=== PATIENT | female | born 1960 | race Caucasian/White ===

== ENCOUNTER 2017-10-16 16:21 | Emergency (ER) | payer OTHER ==
[~2017-10-16] VITALS: Ht 197 cm; Wt 83.9 kg
[~2017-10-16 16:21] MED LIST: LORSARTAN; farxiga
[2017-10-16] MEDS ORDERED: CEFTRIAXONE SOD 1 GM VIAL IV ONE (17:30)
[2017-10-16] MEDS ORDERED: ONDANSETRON HCL INJ 2 MG/ML VIAL IV ONE (17:30)
[2017-10-16] MEDS ORDERED: KETOROLAC TROMETHAMINE 30 MG/ML VIAL IV ONE (17:30)
[2017-10-16] MEDS ORDERED: ATIVAN1 MG (19:07)
[2017-10-16] MEDS ORDERED: KETOROLAC TROME10 MG PO (20:24)
[2017-10-16] MEDS ORDERED: ZOFRAN ODT4 MG SL (20:24)
[2017-10-16] MEDS ORDERED: KEFLEX500 MG PO (20:24)
== END 2017-10-16 20:33 | disposition home or self-care (01) ==
LOC: FSED 16:21
DX: R10.84 Generalized abdominal pain (principal); R11.0 Nausea; N10 Acute pyelonephritis
CPT/HCPCS: 80053; 80307; 81003; 85025; 99284; J0696; J1885; J2405

== ENCOUNTER 2017-12-29 14:41 | Emergency (ER) | payer OTHER ==
[~2017-12-29] VITALS: Ht 175.3 cm; Wt 89.4 kg
[~2017-12-29 14:41] MED LIST changes: +ATIVAN1 MG; +KEFLEX500 MG PO; +KETOROLAC TROME10 MG PO; +ZOFRAN ODT4 MG SL
[2017-12-29 15:17] VITALS: BP 132/70
== END 2017-12-29 15:25 | disposition home or self-care (01) ==
LOC: FSED 14:41
DX: R30.0 Dysuria (principal); N30.90 Cystitis, unspecified without hematuria; N10 Acute pyelonephritis; N12 Tubulo-interstitial nephritis, not specified as acute or chronic
CPT/HCPCS: 80307; 81003; 87086; 87186; 99283

== ENCOUNTER 2019-01-02 13:22 | Emergency (ER) | payer OTHER ==
[~2019-01-02] VITALS: Ht 175.3 cm; Wt 83.9 kg
--- OUTSIDE RECORDS SUMMARY | 2019-01-02 13:26 | XMS REPORT | Clinical Summary ---
Author Author [facility] Address Unknown Phone Unavailable Care Team Providers Care Assembler Small Products Name Role Phone Sharpless PCP Allergies Comments Active Allergy Reactions Severity Noted Date Pt states 'I don't know, it makes my violently sick" Azithromycin Other (See 02/26/2015 Comments) Sulfa (Sulfonamide Rash Low 02/26/2015 Antibiotics) Medications End Date Status Medication Sig Dispensed Refills Start Date Active folic acid (FOLVITE) 1 MG Take 1 mg by 0 tablet mouth daily. Active LORazepam (ATIVAN) 0.5 MG Take 0.5 mg 0 tablet by mouth every 6 (six) hours as needed for Anxiety. Active dapagliflozin (FARXIGA) Take 10 mg by 0 10 mg Tab mouth daily. Active amitriptyline (ELAVIL) 25 Take 25 mg by 0 MG tablet mouth nightly. Active Problems Not on file Social History Date Tobacco Use Types Packs/Day Years Used Current Some Day Smoker Smokeless Tobacco: Never Used Alcohol Use Drinks/Week oz/Week Comments Yes Sex Assigned at Date Recorded Not on file Industry Job Start Date Occupation Not on file Not on file Not on file Travel End Travel History Travel Start No recent travel history available. Last Filed Vital Signs Not on file Plan of Treatment Not on file Results Not on fileafter 01/01/2018 Insurance Payer Benefit Subscriber ID Type Phone Address Plan / Group [employer] - [employer] C[employer] xxxxxxxxxxx LOCAL PLUS
--- OUTSIDE RECORDS SUMMARY | 2019-01-02 13:26 | XMS REPORT | Clinical Summary ---
Author Author [facility] Address Unknown Phone Unavailable Care Team Providers Care Territory Sales Manager Medical Name Role Phone Brandon Guzmán MD PCP Allergies Comments Active Allergy Reactions Severity Noted Date Azithromycin 12/16/2018 Codeine 12/16/2018 Sulfa (Sulfonamide 12/16/2018 Antibiotics) Medications End Date Status Medication Sig Dispensed Refills Start Date 12/23/2018 amoxicillin-pot Take 1 tablet 14 tablet 0 clavulanate (AUGMENTIN) by mouth 9 875-125 mg per tablet every 12 (twelve) hours for 7 days. 12/21/2018 ibuprofen (ADVIL,MOTRIN) Take 1 tablet 15 tablet 0 600 MG tablet (600 mg 9 total) by mouth every 8 (eight) hours as needed for mild pain for up to 5 days. 12/21/2018 butalbital-acetaminophen- Take 1 tablet 15 tablet 0 caff (ESGIC) 50-325-40 mg by mouth 9 per tablet every 6 (six) hours as needed for headaches for up to 5 days. Active Problems Not on file Encounters Care Team Description Date Type Specialty July Bettencourt MD Insect bite of face with local reaction, initial encounter (Primary Dx); Facial cellulitis 12/16/2018 Emergency Emergency Medicine after 01/01/2018 Social History Date Tobacco Use Types Packs/Day Years Used Never Smoker Alcohol Use Drinks/Week oz/Week Comments Yes Sex Assigned at Date Recorded Not on file Industry Job Start Date Occupation Not on file Not on file Not on file Travel End Travel History Travel Start No recent travel history available. Last Filed Vital Signs Time Taken Vital Sign Reading 12/16/2018 8:13 PM CDT Blood Pressure 140/80 12/16/2018 8:13 PM CDT Pulse 96 12/16/2018 8:13 PM CDT Temperature 36.1 C (96.9 F) 12/16/2018 8:13 PM CDT Respiratory Rate 18 12/16/2018 8:13 PM CDT Oxygen Saturation 99% - Inhaled Oxygen - Concentration 12/16/2018 8:13 PM CDT Weight 83.9 kg (185 lb) 12/16/2018 8:13 PM CDT Height 175.3 cm (5' 9") 12/16/2018 8:13 PM CDT Body Mass Index 27.32 Plan of Treatment Not on file Results Not on fileafter 01/01/2018 Insurance Type Payer Benefit Subscriber ID Effective Phone Address Plan / Dates Group Exchange [employer] xxxxxxxxxxxx [id number] EXCHANGE [facility] resent EXCHANGE [employer] Advance Directives Patient has advance care planning documents on file. For more information, mohan thacker contact: Radames Wren [address] [place] [address]
--- OUTSIDE RECORDS SUMMARY | 2019-01-02 13:28 | XMS REPORT | Continuity of Care Document ---
[facility] Information [employer] Address Unknown Phone Unavailable Care Team Providers Care Scout Executive Name Role Phone [facility] Information Exchange Unavailable Unavailable Problems Problem Status Onset Date Classification Date Reported Comments Source Mixed hyperlipidemia 04/20/2018 11/01/2018 [facility] [place] Benign neoplasm of cerebral meninges 02/18/2018 08/27/2018 [facility] D32.0,D32.9,G40.209,BENIGN NEOPLASM OF C Active 01/24/2018 [facility] Discharge Diagnosis: Seizure disorder 11/05/2016 11/09/2016 [facility] EPILEPTIC SIEZURE Active 11/05/2016 [facility] OTHER Active 06/28/2016 [facility] G40.209 Active 06/22/2016 [facility] G95.89 OTHER SPECIFIED DISEASES OF SPINA Active 06/14/2016 [facility] SCREENING MAMMOGRAM Active 04/01/2016 [facility] Discharge Diagnosis: Abdominal pain 01/31/2016 02/03/2016 [facility] Discharge Diagnosis: Complex partial epileptic seizure 01/31/2016 02/03/2016 [facility] SEZIURE Active 01/31/2016 [facility] ABD PAIN Active 11/27/2015 [facility] ACUTE DIVERTICULITIS INTRACTABLE PAIN NA Active 11/27/2015 [facility] Discharge Diagnosis: Diverticulitis of large intestine without perforation or abscess without bleeding 11/26/2015 11/29/2015 [facility] ABDOMINAL PAIN- LOWER Active 11/26/2015 [facility] Discharge Diagnosis: Headache, classical migraine 10/01/2015 10/04/2015 [facility] Discharge Diagnosis: Abdominal pain, acute, epigastric 10/01/2015 10/04/2015 [facility] Discharge Diagnosis: Recurrent seizures 10/01/2015 10/04/2015 [facility] CHEST PAINS Active 09/30/2015 [facility] M54.16 Active 06/13/2015 [facility] DDD, CERVICAL CERVICAL DISC SYNDROME Active 02/21/2015 [facility] Discharge Diagnosis: Pyelonephritis 11/22/2013 11/25/2013 [facility] BACK PAIN Active 11/22/2013 [facility] Thyroid [id number], 20 Active 11/02/2013 Problem 03/08/2015 Data migrated from [employer] on 12/03/14. Data migrated from [employer] on 12/03/14. [facility] Thyroid [id number], 21 Active 11/02/2013 Problem 11/01/2018 Data migrated from [employer] on 12/03/14. Data migrated from [employer] on 12/03/14. [facility], KAREN Villar,[facility] Hyperlipidemia9, 10 Active 10/22/2013 Problem 03/08/2015 Data migrated from [employer] on 12/03/14. Data migrated from [employer] on 12/03/14. [facility] Vitamin D [id number], 24 Active 10/22/2013 Problem 03/08/2015 Data migrated from [employer] on 12/03/14. Data migrated from [employer] on 12/03/14. [facility] Htzuoqofcjgjua98, 11 Active 10/22/2013 Problem 11/01/2018 Data migrated from [employer] on 12/03/14. Data migrated from [employer] on 12/03/14. [facility], KAREN Villar,[facility] Vitamin D [id number], 25 Active 10/22/2013 Problem 11/01/2018 Data migrated from [employer] on 12/03/14. Data migrated from [employer] on 12/03/14. [facility], KAREN Villar,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 Data migrated from [employer] on 12/03/14. [facility] Csxjjwgn42, 14 Active 10/15/2013 Problem 03/08/2015 Data migrated from [employer] on 12/03/14. Data migrated from [employer] on 12/03/14. [facility] Multinodular [id number], 18 Active 10/15/2013 Problem 03/08/2015 Data migrated from [employer] on 12/03/14. Data migrated from [employer] on 12/03/14. [facility] Cervical spondylosis5, 6 Active 10/15/2013 Problem 11/01/2018 Data migrated from [employer] on 12/03/14. Data migrated from [employer] on 12/03/14. [facility], [place], KAREN Villar,[facility] Cobalamin deficiency7, 8 Active 10/15/2013 Problem 11/01/2018 Data migrated from [employer] on 12/03/14. Data migrated from [employer] on 12/03/14. [facility], KAREN [place],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 Data migrated from [employer] on 12/03/14. [facility], [place], KAREN Villar,[facility] [id number], 15 Active 10/15/2013 Problem 11/01/2018 Data migrated from [employer] on 12/03/14. Data migrated from [employer] on 12/03/14. [facility], KAREN Villar,[facility] Multinodular [id number], 19 Active 10/15/2013 Problem 11/01/2018 Data migrated from [employer] on 12/03/14. Data migrated from [employer] on 12/03/14. [facility], KAREN Villar,[facility] FALL Active 11/09/2012 [facility] Positive MRSA15, 16 Active 11/05/2010 Problem 03/08/2015 Positive MRSA in urine on 11/05/2010. Problem added by Discern Expert. [facility] Positive MRSA1, 2 Active 11/05/2010 Problem 11/25/2013 1Positive MRSA in urine on 11/05/2010. 2Problem added by Discern Expert. [facility] MRSA1, 2 Active 11/05/2010 Problem 11/12/2012 1Positive MRSA in urine on 11/05/2010. 2Problem added by Discern Expert. [facility] Positive MRSA16, 17 Active 11/05/2010 Problem 11/01/2018 Positive MRSA in urine on 11/05/2010. Problem added by Discern Expert. [facility], [place], KAREN Villar, Danielle,[facility] Type 2 diabetes [id number], 22 Active Problem 03/08/2015 Data migrated from [employer] on 12/03/14. Data migrated from [employer] on 12/03/14. [facility] Hyperlipidemia Active Problem 11/09/2016 [facility], [place], Danielle Seizure Active Problem 10/04/2015 [facility] Abnormal levels of other serum enzymes 11/01/2018 [facility] [place] Nontoxic multinodular goiter 11/01/2018 KAREN Villar Occlusion and stenosis of bilateral carotid arteries 11/01/2018 [facility] [place] Fatty liver, not elsewhere classified 11/01/2018 [facility] [place] Other specified diseases of biliary tract 11/01/2018 [facility] [place] Acquired absence of other specified parts of digestive tract 11/01/2018 KAREN [place] Anxiety disorder1, 2 Active Problem 11/01/2018 Data migrated from [email or web address] on 12/03/14. Data migrated from [employer] on 12/03/14. [facility], [place], KAREN Villar, Danielle,[facility] Benign hypertension3, 4 Active Problem 11/01/2018 Data migrated from [employer] on 12/03/14. Data migrated from [employer] on 12/03/14. [facility], [place], KAREN Villar, Danielle,[facility] Cervical spondylosis Active Problem 11/01/2018 [facility], [place], KAREN Villar,[facility] Cobalamin deficiency Active Problem 11/01/2018 [facility], [place], KAREN Villar,[facility] Cyst9 Resolved Problem 11/01/2018 CYST on / near cervical spine [facility], [place], KAREN Villar, Danielle,[facility] Diabetes mellitus Resolved Problem 11/01/2018 [facility], [place], KAREN Villar, Danielle,[facility] Diabetic - cooperative patient Active Problem 11/01/2018 [facility], [place], KAREN Villar, Danielle,[facility] Diverticulitis small intestine Active Problem 11/01/2018 [facility], [place], KAREN Villar, Danielle,[facility] Epilepsy Active Problem 11/01/2018 [facility], [place], KAREN Villar, Danielle,[facility] H/O MTHFR mutation Resolved Problem 11/01/2018 KAREN Villar,[facility] Hypertension Resolved Problem 11/01/2018 [facility], [place], KAREN Villar, Danielle,[facility] 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 Type 2 diabetes [id number], 23 Active Problem 11/01/2018 Data migrated from [employer] on 12/03/14. Data migrated from [employer] on 12/03/14. [facility], [place], KAREN Villar, Danielle,[facility] Essential hypertension 08/27/2018 [facility] Gastro-esophageal reflux disease without esophagitis 08/27/2018 [facility] OTHER SPECIFIED CONGENITAL DEFORMITIES Active [facility] Medications Medication Details Route Status Patient Instructions Ordering Provider Order Date Source Sodium Chloride 0.9% IV 1,000 mL 1,000 mL, Rate: 25 ml/hr, Infuse over: 40 hr, Route: IV, Dosing Weight 90 kg, Total Volume: 1,000, Start date: 02/07/18 7:54:00 CDT, Duration: 30 day, Stop date: 03/09/18 7:53:00 CDT, 2.11, m2 Inactive 02/07/2018 [facility] CoQ10 300 mg, PO, Daily, 0 Refill(s) Active 01/27/2018 [facility] sitagliptin 100 MG Oral Tablet [Januvia] 100 mg=1 tab, PO, Daily, # 30 tab, 0 Refill(s) No Longer Active 01/27/2018 [facility] amitriptyline 25 mg oral tablet 25 mg=1 tab, PO, Bedtime, # 30 tab, 1 Refill(s) No Longer Active 01/27/2018 [facility] Aspirin 81 MG Enteric Coated Tablet 81 mg=1 tab, PO, Daily, # 90 tab, 3 Refill(s) Active 01/27/2018 [facility] Cyclobenzaprine hydrochloride 5 MG Oral Tablet [Flexeril] 5 mg=1 tab, PO, TID, # 30 tab, 0 Refill(s) No Longer Active 01/27/2018 [facility] Folic Acid Daily, 0 Refill(s) Active 01/27/2018 [facility] Botox 0 Refill(s) Active 01/27/2018 [facility] Phenytoin sodium 100 MG Extended Release Capsule [Dilantin] 300 mg=3 cap, PO, Bedtime, # 270 cap, 0 Refill(s) No Longer Active 01/27/2018 [facility] LORazepam 2 mg oral tablet 2 mg=1 tab, PO, Bedtime, # 30 tab, 0 Refill(s) Active 01/27/2018 [facility] Levetiracetam 250 MG Oral Tablet 250 mg=1 tab, PO, BID, # 60 tab, 2 Refill(s) No Longer Active 01/27/2018 [facility] 24 HR dapagliflozin 5 MG / Metformin hydrochloride 500 MG Extended Release Oral Tablet [Xigduo] 1 tab, PO, QAM, 0 Refill(s) No Longer Active 01/27/2018 [facility] dapagliflozin propanediol 10 MG Oral Tablet [Farxiga] 10 mg=1 tab, PO, Daily, 0 Refill(s) Active 01/27/2018 [facility] Cephalexin Monohydrate (Keflex) 500 Mg Capsule Twice A Day Active Rei 10/16/2017 [facility] Ketorolac Tromethamine (Toradol) 10 Mg Tablet Every 6 Hours as needed for Pain Active Rei 10/16/2017 [facility] Ondansetron (Zofran Odt) 4 Mg Tab.rapdis Every 6 Hours as needed for Nausea Active November sub tablets in place of ODT Rei 10/16/2017 [facility] Farxiga Unknown Strength , Unknown Dose Active 10/16/2017 [facility] Lorsartan Unknown Strength , Unknown Dose Active 10/16/2017 [facility] Diazepam 5 MG Oral Tablet [Valium] 5 mg=1 tab, PO, Daily, PRN Anxiety, X 7 day, # 7 tab, 0 Refill(s) Active 11/06/2016 [facility] tramadol hydrochloride 50 MG Oral Tablet [Ultram] 50 mg=1 tab, PO, Q4H, PRN pain, X 3 day, # 20 tab, 0 Refill(s) Active 11/06/2016 [facility] Keppra 1,000 mg, Route: IV, ONCE, Dosing Weight 81.818, kg, Start date: 11/05/16 22:45:00 CDT, Stop date: 11/05/16 22:45:00 CDTNotes: Same as Keppra Mix with 100 mL NS, LR or D5W MEDICATION WASTE Product Size: 500 mg Product Wasted: ___ mg Inactive 11/06/2016 [facility] Valium 5 mg, 1 tab, Route: PO, Drug form: TAB, ONCE, Dosing Weight 81.818, kg, Priority: STAT, Start date: 11/05/16 22:45:00 CDT, Stop date: 11/05/16 22:45:00 CDTNotes: (Same as: Valium) Inactive 11/06/2016 [facility] Zofran 4 mg, 2 mL, Route: IVP, Drug form: INJ, ONCE, Dosing Weight 81.818, kg, Priority: STAT, Start date: 11/05/16 22:45:00 CDT, Stop date: 11/05/16 22:45:00 CDTNotes: (Same as: Zofran) MEDICATION WASTE Product Size: 4 mg Product Wasted: ___ mg Inactive 11/06/2016 [facility] Dilaudid 1 mg, 1 mL, Route: IVP, Drug form: INJ, ONCE, Dosing Weight 81.818, kg, Priority: STAT, Start date: 11/05/16 22:45:00 CDT, Stop date: 11/05/16 22:45:00 CDTNotes: Same as: Dilaudid Inactive 11/06/2016 [facility] Zofran ODT 4 mg, 1 tab, Route: PO, Drug form: TABDIS, ONCE, Dosing Weight 84.091, kg, Start date: 07/02/16 20:41:00 FOLDING MACHINE TENDER, Stop date: 07/02/16 20:41:00 CSTNotes: (Same as: Zofran ODT) Inactive 07/03/2016 [facility] gabapentin 300 MG Oral Capsule 300 mg=1 cap, PO, BID, # 60 cap, 1 Refill(s) Active 07/02/2016 [facility] gabapentin 300 MG Oral Capsule 300 mg, 1 cap, Route: PO, Drug form: CAP, BID, Dosing Weight 84.091, kg, Start date: 07/02/16 10:50:00 FOLDING MACHINE TENDER, Duration: 30 day, Stop date: 08/01/16 9:00:00 CSTNotes: (Same as: Neurontin) No Longer Active 07/02/2016 [facility] ethanol 30 mL, Route: PO, Drug Form: LIQ, Dosing Weight 84.091, kg, ONCE, Start date: 07/01/16 6:00:00 FOLDING MACHINE TENDER, Stop date: 07/01/16 6:00:00 CSTNotes: "Call 2 hours before next dose due" Inactive 07/01/2016 [facility] Benadryl 50 mg, 1 cap, Route: PO, Drug form: CAP, ONCE, Dosing Weight 84.091, kg, Start date: 07/01/16 6:00:00 FOLDING MACHINE TENDER, Stop date: 07/01/16 6:00:00 CSTNotes: (Same as: Benadryl) Inactive 07/01/2016 [facility] tramadol hydrochloride 50 MG Oral Tablet [Ultram] 100 mg, 2 tab, Route: PO, Drug form: TAB, ONCE, Dosing Weight 84.091, kg, Start date: 07/01/16 6:00:00 FOLDING MACHINE TENDER, Stop date: 07/01/16 6:00:00 CSTNotes: Not to exceed 400mg/day. (Same As: Ultram) Inactive 07/01/2016 [facility] Tramadol 100 mg, 2 tab, Route: PO, Drug form: TAB, ONCE, Dosing Weight 84.091, kg, Start date: 06/30/16 6:00:00 FOLDING MACHINE TENDER, Stop date: 06/30/16 6:00:00 CSTNotes: Not to exceed 400mg/day. (Same As: Ultram) Inactive 06/30/2016 [facility] Benadryl 50 mg, 1 cap, Route: PO, Drug form: CAP, ONCE, Dosing Weight 84.091, kg, Start date: 06/30/16 6:00:00 FOLDING MACHINE TENDER, Stop date: 06/30/16 6:00:00 CSTNotes: (Same as: Benadryl) Inactive 06/30/2016 [facility] oral alcohol (Beer/Wine) 1 ounce, Route: PO, Drug Form: LIQ, Dosing Weight 84.091, kg, ONCE, Start date: 06/30/16 6:00:00 FOLDING MACHINE TENDER, Stop date: 06/30/16 6:00:00 CSTNotes: "Call 2 hours before next dose due" Inactive 06/30/2016 [facility] Benadryl 50 mg, Route: PO, ONCE, Dosing Weight 84.091, kg, PRN Allergic reaction, Start date: 06/30/16 3:00:00 FOLDING MACHINE TENDER No Longer Active 06/30/2016 [facility] oral alcohol (Beer/Wine) 1 ounce, Route: PO, Dosing Weight 84.091, kg, ONCE, Start date: 06/30/16 3:00:00 FOLDING MACHINE TENDER, Stop date: 06/30/16 3:00:00 FOLDING MACHINE TENDER No Longer Active 06/30/2016 [facility] tramadol hydrochloride 50 MG Oral Tablet [Ultram] 2 tab, Route: PO, Drug form: TAB, ONCE, Dosing Weight 84.091, kg, PRN Pain Score 1-3, Start date: 06/30/16 3:00:00 FOLDING MACHINE TENDER No Longer Active 06/30/2016 [facility] Losartan 100 mg, 1 tab, Route: PO, Drug form: TAB, Daily, Dosing Weight 84.091, kg, Start date: 06/29/16 9:00:00 FOLDING MACHINE TENDER, Duration: 30 day, Stop date: 07/28/16 9:00:00 FOLDING MACHINE TENDER, Patient's Own MedsNotes: (Same as: Sierrazakaye) No Longer Active 06/29/2016 [facility] Folic Acid 1 mg, 1 tab, Route: PO, Drug form: TAB, Daily, Dosing Weight 84.091, kg, Start date: 06/29/16 9:00:00 FOLDING MACHINE TENDER, Duration: 30 day, Stop date: 07/28/16 9:00:00 FOLDING MACHINE TENDER, Patient's Own MedsNotes: (Same as: Folvite) No Longer Active 06/29/2016 [facility] pneumococcal capsular polysaccharide type 1 vaccine / pneumococcal capsular polysaccharide type 10A vaccine / pneumococcal capsular polysaccharide type 11A vaccine / pneumococcal capsular polysaccharide type 12F vaccine / pneumococcal capsular polysacchar 0.5 mL, Route: IM, Drug Form: INJ, Daily, Start date: 06/29/16 9:00:00 FOLDING MACHINE TENDER, Duration: 1 doses or times, Stop date: 06/29/16 9:00:00 CSTNotes: (Same as: Pneumovax 23) Refrigerate Inactive 06/29/2016 [facility] Lipitor 10 mg, 1 tab, Route: PO, Drug form: TAB, Bedtime, Dosing Weight 84.091, kg, Start date: 06/28/16 21:00:00 FOLDING MACHINE TENDER, Duration: 30 day, Stop date: 07/27/16 21:00:00 FOLDING MACHINE TENDER, Patient's Own MedsNotes: (Same As: Lipitor) No Longer Active 06/29/2016 [facility] benzonatate 100 mg oral capsule 100 mg=1 cap, PO, take 1- 2 capsules tid as needed for cough Active 06/28/2016 [facility] benzonatate PO, TID, 0 Refill(s) Inactive 06/28/2016 [facility] Esomeprazole 20 MG / Naproxen 500 MG Enteric Coated Tablet [Vimovo 500/20] 1 tab, PO, BID, # 60 tab Active 06/28/2016 [facility] Acetaminophen 650 mg, 2 tab, Route: PO, Drug form: TAB, Q6H, Dosing Weight 84.091, kg, PRN Pain Score 1-3, Start date: 06/28/16 16:38:00 FOLDING MACHINE TENDER, Duration: 30 day, Stop date: 07/28/16 16:37:00 CSTNotes: Do not exceed 4 gm/day. (Same as: Tylenol) No Longer Active 06/28/2016 [facility] 24 HR Metformin hydrochloride 1000 MG / sitagliptin 50 MG Extended Release Tablet [Janumet ] 1 tab, PO, Daily, # 30 tab, 0 Refill(s) Active 06/28/2016 [facility] atorvastatin 10 MG Oral Tablet [Lipitor] 10 mg=1 tab, PO, Bedtime, # 30 tab, 0 Refill(s) Active 06/28/2016 [facility] 24 HR Metformin hydrochloride 500 MG / sitagliptin 50 MG Extended Release Tablet [Janumet 50/500] 2 tab, PO, QPM, 0 Refill(s) Inactive 06/28/2016 [facility] losartan 100 mg oral tablet 100 mg=1 tab, PO, Daily, # 30 tab, 0 Refill(s) Active 06/28/2016 [facility] pentafluoropropane-tetrafluoroethane topical 1 spray, Route: TOP, PRN, PRN Procedure, Start date: 06/28/16 10:13:00 FOLDING MACHINE TENDER, Duration: 30 day, Stop date: 07/28/16 10:12:00 FOLDING MACHINE TENDER Inactive 06/28/2016 [facility] sucrose 1 mL, Route: PO, Drug Form: LIQ, Dosing Weight 84.091, kg, PRN, PRN Procedure, Start date: 06/28/16 10:13:00 FOLDING MACHINE TENDER, Duration: 3 doses or times, Stop date: Limited # of times Inactive 06/28/2016 [facility] Versed 1 mg, 1 mL, Route: IV, Drug form: INJ, ONCALL, Dosing Weight 84.091, kg, Start date: 06/28/16 10:00:00 FOLDING MACHINE TENDER, Duration: 30 day, Stop date: 07/28/16 9:59:00 CSTNotes: (Same as: Versed) MEDICATION WASTE Product Size: 2 mg Product Wasted: ___ mg Inactive 06/28/2016 [facility] Ondansetron 4 MG Disintegrating Tablet [Zofran] 4 mg=1 tab, PO, BID, PRN Nausea and Vomiting, Dissolve tab under tongue, X 5 day, # 10 tab, 0 Refill(s) Active 02/01/2016 [facility] tramadol hydrochloride 50 MG Oral Tablet 50 mg=1 tab, PO, Q6H, PRN Pain, X 10 day, # 12 tab, 0 Refill(s) Active 02/01/2016 [facility] ketOROLAC 30 mg/mL injectable solution 30 mg, 1 mL, Route: IVP, Drug form: INJ, ONCE, Dosing Weight 85.909, kg, Priority: STAT, Start date: 01/31/16 20:43:00 CDT, Stop date: 01/31/16 20:43:00 CDTNotes: (Same as:Toradol) IV bolus must be given >15 seconds. Give IM administration slowly and deeply into the muscle. Not for use > 4 days MEDICATION WASTE Product Size: 30 mg Product Wasted: ___ mg Inactive 02/01/2016 [facility] Ondansetron 4 mg, 2 mL, Route: IVP, Drug form: INJ, ONCE, Dosing Weight 85.909, kg, Priority: STAT, Start date: 01/31/16 18:39:00 CDT, Stop date: 01/31/16 18:39:00 CDTNotes: (Same as: Zofran) MEDICATION WASTE Product Size: 4 mg Product Wasted: ___ mg Inactive 01/31/2016 [facility] Morphine 4 mg, 1 mL, Route: IVP, Drug form: INJ, ONCE, Dosing Weight 85.909, kg, Priority: STAT, Start date: 01/31/16 18:39:00 CDT, Stop date: 01/31/16 18:39:00 CDTNotes: (Same as:MORPhine Sulfate) Inactive 01/31/2016 [facility] Saline Flush 0.9% 10 mL, Route: IVP, Drug Form: INJ, Dosing Weight 85.909, kg, PRN, PRN Line Flush, Start date: 01/31/16 18:39:00 CDT, Duration: 30 day, Stop date: 03/01/16 18:38:00 CDTNotes: (Same as: BD Posiflush) No Longer Active 01/31/2016 [facility] Sodium Chloride 0.154 MEQ/ML Injectable Solution 1,000 mL, 2,000 ml/hr, Infuse Over: 30 minutes, Route: IV, 1,000, Drug form: INJ, ONCE, Priority: STAT, Dosing Weight 85.909 kg, Start date: 01/31/16 18:39:00 CDT, Duration: 1 doses or times, Stop date: 01/31/16 18:39:00 CDT Inactive 01/31/2016 [facility] Losartan 50 mg, 1 tab, Route: PO, Drug form: TAB, Daily, Dosing Weight 83.15, kg, Start date: 11/29/15 9:00:00 CDT, Duration: 30 day, Stop date: 12/28/15 9:00:00 CDTNotes: (Same as: Cozaar) No Longer Active 11/29/2015 [facility] Folic Acid 1 mg, 1 tab, Route: PO, Drug form: TAB, Daily, Dosing Weight 83.15, kg, Start date: 11/29/15 9:00:00 CDT, Duration: 30 day, Stop date: 12/28/15 9:00:00 CDTNotes: (Same as: Folvite) No Longer Active 11/29/2015 [facility] Levothroid 50 microgram, 1 tab, Route: PO, Drug form: TAB, Q6AM, Dosing Weight 83.15, kg, Start date: 11/29/15 6:00:00 CDT, Duration: 30 day, Stop date: 12/28/15 6:00:00 CDTNotes: Take 1 hour before or 2 hours after meal; Enteral feeds may interefere with the absorption of this medication.(Same as:Levothroid, Synthroid) No Longer Active 11/29/2015 [facility] Lorazepam 1 mg, 1 tab, Route: PO, Drug form: TAB, Bedtime, Dosing Weight 83.15, kg, Start date: 11/28/15 21:00:00 CDT, Duration: 30 day, Stop date: 12/27/15 21:00:00 CDTNotes: (Same as: Ativan) Inactive 11/29/2015 [facility] Cefuroxime 500 MG Oral Tablet [Ceftin] 500 mg, 2 tab, Route: PO, Drug form: TAB, [id number], Dosing Weight 83.15, kg, Start date: 11/28/15 21:00:00 CDT, Duration: 14 day, Stop date: 12/12/15 9:00:00 CDTNotes: (Do Not Crush) With food. (Same As: Ceftin) Inactive 11/29/2015 [facility] Protonix 40 mg, 1 tab, Route: PO, Drug form: ECTAB, Before Dinner, Dosing Weight 83.15, kg, Start date: 11/28/15 16:30:00 CDT, Duration: 30 day, Stop date: 12/27/15 16:30:00 CDTNotes: Tablet should not be chewed or crushed. (Same as: Protonix) Inactive 11/28/2015 [facility] pantoprazole 40 MG Enteric Coated Tablet [Protonix] 40 mg, PO, Before Dinner, # 30 tab, 0 Refill(s) Active 11/28/2015 [facility] Docusate Sodium 100 MG Oral Capsule [Colace] 100 mg=1 cap, PO, BID, PRN Constipation, # 20 cap, 0 Refill(s) Active 11/28/2015 [facility] Docusate Sodium 100 MG Oral Capsule [Colace] 100 mg, 1 cap, Route: PO, Drug form: CAP, BID, Dosing Weight 83.15, kg, PRN Constipation, Start date: 11/28/15 13:12:00 CDT, Duration: 10 day, Stop date: 12/08/15 13:11:00 CDTNotes: (Same as: Colace) (Do Not Crush) Inactive 11/28/2015 [facility] Cefuroxime 500 MG Oral Tablet [Ceftin] 500 mg, PO, [id number], # 28 tab, 0 Refill(s) No Longer Active 11/28/2015 [facility] Rocephin 1 gm, Route: IVPB, [id number], Dosing Weight 83.15, kg, Start date: 11/28/15 10:00:00 CDT, Duration: 30 day, Stop date: 12/27/15 10:00:00 CDTNotes: (Same As: Rocephin). Use with 100 mL NS and infuse over 30 min MEDICATION WASTE Product Size: 1000 mg Product Wasted: ___ mg Inactive 11/28/2015 [facility] Protonix 40 mg, Route: IV, Drug form: INJ, Daily, Dosing Weight 83.182, kg, Start date: 11/28/15 9:00:00 CDT, Duration: 30 day, Stop date: 12/27/15 9:00:00 CDTNotes: For IV push reconstitute with 10 ml 0.9% sodium chloride and push over 2 minutes. (Same as: Protonix) Inactive 11/28/2015 [facility] Flagyl 500 mg, 100 mL, Route: IV, Drug form: INJ, [id number], Dosing Weight 83.182, kg, Start date: 11/27/15 18:00:00 CDT, Duration: 30 day, Stop date: 12/27/15 12:00:00 CDTNotes: (Same as: Flagyl) Avoid alcohol. No Longer Active 11/27/2015 [facility] Saline Flush 0.9% 10 ml, Route: IVP, Drug Form: INJ, Dosing Weight 83.182, kg, PRN, PRN Line Flush, Start date: 11/27/15 17:36:00 CDT, Duration: 30 day, Stop date: 12/27/15 17:35:00 CDTNotes: (Same as: BD Posiflush) No Longer Active 11/27/2015 [facility] Sodium Chloride 0.154 MEQ/ML Injectable Solution 1,000 mL, Rate: 125 ml/hr, Infuse over: 8 hr, Route: IV, Dosing Weight 83.182 kg, Total Volume: 1,000, Start date: 11/27/15 17:36:00 CDT, Duration: 30 day, Stop date: 12/27/15 17:35:00 CDT Inactive 11/27/2015 [facility] Morphine 4 mg, 2 mL, Route: IVP, Drug form: INJ, Q4H, Dosing Weight 83.182, kg, PRN Pain Score 7-10, Start date: 11/27/15 17:36:00 CDT, Duration: 30 day, Stop date: 12/27/15 17:35:00 CDTNotes: (Same as:MORPhine Sulfate) No Longer Active 11/27/2015 [facility] Ondansetron 4 mg, 2 mL, Route: IVP, Drug form: INJ, Q6H, Dosing Weight 83.182, kg, PRN Nausea & Vomiting, Start date: 11/27/15 17:36:00 CDT, Duration: 30 day, Stop date: 12/27/15 17:35:00 CDTNotes: (Same as: Zofran) MEDICATION WASTE Product Size: 4 mg Product Wasted: ___ mg No Longer Active 11/27/2015 [facility] Acetaminophen 650 mg, 2 tab, Route: PO, Drug form: TAB, Q4H, Dosing Weight 83.182, kg, PRN Pain 1-3/Temp > 100.4 F, Start date: 11/27/15 17:36:00 CDT, Duration: 30 day, Stop date: 12/27/15 17:35:00 CDTNotes: Do not exceed 4 gm/day. (Same as: Tylenol) No Longer Active 11/27/2015 [facility] Insulin, Aspart, Human 3 unit, 0.03 mL, Route: SUB-Q, Drug form: SOLN, Bedtime, Dosing Weight 83.182, kg, PRN Blood Glucose Results, Start date: 11/27/15 17:23:00 CDT, Duration: 30 day, Stop date: 12/27/15 17:22:00 CDTNotes: Roll in palms of hands gently; Do not shake vigorously. (Same as: NovoLOG) "single patient use only" WASTE: F/P - Black; E - [place] [employer] Trash Bin Stable for 28 days at room temperature. Expires in days from Date No Longer Active 11/27/2015 [facility] Dextrose 50% Syringe 25 gm, 50 mL, Route: IVP, Drug Form: INJ, Dosing Weight 83.182, kg, PRN, PRN Blood Glucose Results, Start date: 11/27/15 17:23:00 CDT, Duration: 30 day, Stop date: 12/27/15 17:22:00 CDT No Longer Active 11/27/2015 [facility] Glucagon 1 mg, Route: IM, Drug form: PDR/INJ, PRN, Dosing Weight 83.182, kg, PRN Blood Glucose Results, Start date: 11/27/15 17:23:00 CDT, Duration: 30 day, Stop date: 12/27/15 17:22:00 CDT No Longer Active 11/27/2015 [facility] Zofran 4 mg, 2 mL, Route: IV, Drug form: INJ, Q4H, Dosing Weight 83.182, kg, PRN as needed for nausea/vomiting, Start date: 11/27/15 17:21:00 CDT, Duration: 30 day, Stop date: 12/27/15 17:20:00 CDTNotes: (Same as: Zofran) MEDICATION WASTE Product Size: 4 mg Product Wasted: ___ mg No Longer Active 11/27/2015 [facility] Sodium Chloride 0.154 MEQ/ML Injectable Solution 1,000 mL, Rate: 125 ml/hr, Infuse over: 8 hr, Route: IV, Dosing Weight 83.182 kg, Total Volume: 1,000, Start date: 11/27/15 17:21:00 CDT, Duration: 30 day, Stop date: 12/27/15 17:20:00 CDT No Longer Active 11/27/2015 [facility] Ciprofloxacin 400 mg, 200 mL, Route: IVPB, Drug form: INJ, [id number], Dosing Weight 83.182, kg, Priority: STAT, Start date: 11/27/15 16:48:00 CDT, Duration: 30 day, Stop date: 12/27/15 4:48:00 CDTNotes: Do not refrigerate No Longer Active 11/27/2015 [facility] Zofran 4 mg, 2 mL, Route: IVP, Drug form: INJ, ONCE, Dosing Weight 83.182, kg, Priority: STAT, Start date: 11/27/15 16:44:00 CDT, Stop date: 11/27/15 16:44:00 CDTNotes: (Same as: Zofran) MEDICATION WASTE Product Size: 4 mg Product Wasted: ___ mg Inactive 11/27/2015 [facility] Dilaudid 0.5 mg, 0.5 mL, Route: IVP, Drug form: INJ, ONCE, Dosing Weight 83.182, kg, Priority: STAT, Start date: 11/27/15 16:44:00 CDT, Stop date: 11/27/15 16:44:00 CDT Inactive 11/27/2015 [facility] Flagyl 500 mg, Route: IVPB, ONCE, Dosing Weight 83.182, kg, Priority: STAT, Start date: 11/27/15 13:58:00 CDT, Stop date: 11/27/15 13:58:00 CDT Inactive 11/27/2015 [facility] Ciprofloxacin 400 mg, Route: IVPB, ONCE, Dosing Weight 83.182, kg, Priority: STAT, Start date: 11/27/15 13:58:00 CDT, Stop date: 11/27/15 13:58:00 CDT Inactive 11/27/2015 [facility] Sodium Chloride 0.154 MEQ/ML Injectable Solution 1,000 mL, 1,000 ml/hr, Infuse Over: 1 hr, Route: IV, ONCE, Priority: STAT, Dosing Weight 83.182 kg, Start date: 11/27/15 13:00:00 CDT, Duration: 1 doses or times, Stop date: 11/27/15 13:00:00 CDT Inactive 11/27/2015 [facility] Zofran 4 mg, Route: IVP, Drug form: INJ, ONCE, Dosing Weight 83.182, kg, Priority: STAT, Start date: 11/27/15 13:00:00 CDT, Stop date: 11/27/15 13:00:00 CDT Inactive 11/27/2015 [facility] Dilaudid 0.5 mg, Route: IVP, ONCE, Dosing Weight 83.182, kg, Priority: STAT, Start date: 11/27/15 13:00:00 CDT, Stop date: 11/27/15 13:00:00 CDT Inactive 11/27/2015 [facility] Metronidazole 500 MG Oral Tablet [Flagyl] 500 mg=1 tab, PO, Q8H, X 14 day, # 42 tab, 0 Refill(s) No Longer Active 11/26/2015 [facility] Ciprofloxacin 500 MG Oral Tablet [Cipro] 500 mg=1 tab, PO, Q12H, X 14 day, # 28 tab, 0 Refill(s) No Longer Active 11/26/2015 [facility] tramadol hydrochloride 50 MG Oral Tablet [Ultram] 50 mg=1 tab, PO, Q6H, PRN pain, X 5 day, # 20 tab, 0 Refill(s) No Longer Active 11/26/2015 [facility] Morphine 4 mg, Route: IVP, ONCE, Dosing Weight 83.182, kg, Priority: STAT, Start date: 11/26/15 3:55:00 CDT, Stop date: 11/26/15 3:55:00 CDT Inactive 11/26/2015 [facility] Ondansetron 4 mg, Route: IVP, Drug form: INJ, ONCE, Dosing Weight 83.182, kg, Priority: STAT, Start date: 11/26/15 1:45:00 CDT, Stop date: 11/26/15 1:45:00 CDT Inactive 11/26/2015 [facility] Morphine 4 mg, Route: IVP, ONCE, Dosing Weight 83.182, kg, Priority: STAT, Start date: 11/26/15 1:45:00 CDT, Stop date: 11/26/15 1:45:00 CDT Inactive 11/26/2015 [facility] Promethazine 25 mg, Route: IM, ONCE, Dosing Weight 81.818, kg, Priority: STAT, Start date: 10/01/15 3:46:00, Stop date: 10/01/15 3:46:00 Inactive 10/01/2015 [facility] Diazepam 5 MG Oral Tablet [Valium] 5 mg, PO, Q8-12H, PRN Anxiety / dizziness, X 7 day, # 20 tab, 0 Refill(s) Active 10/01/2015 [facility] Zofran 8 mg, Route: IVP, Drug form: INJ, ONCE, Dosing Weight 81.818, kg, Priority: STAT, Start date: 09/30/15 23:23:00, Stop date: 09/30/15 23:23:00 No Longer Active 10/01/2015 [facility] Ativan 1 mg, Route: IVP, Drug form: INJ, ONCE, Dosing Weight 81.818, kg, Priority: STAT, Start date: 09/30/15 23:23:00, Stop date: 09/30/15 23:23:00 No Longer Active 10/01/2015 [facility] Dilaudid 1 mg, Route: IVP, ONCE, Dosing Weight 81.818, kg, Priority: STAT, Start date: 09/30/15 23:23:00, Stop date: 09/30/15 23:23:00 No Longer Active 10/01/2015 [facility] Albuterol 0.833 MG/ML / Ipratropium [place] 0.167 MG/ML Inhalant Solution [DuoNeb] 3 ml, Route: INHALATION, Drug Form: SOLN, Dosing Weight 81.818, kg, ONCE, Start date: 09/30/15 18:44:00, Stop date: 09/30/15 18:44:00 Inactive 09/30/2015 [facility] Zofran 4 mg, 2 mL, Route: IVP, Drug form: INJ, ONCE, Start date: 06/13/15 14:00:00, Stop date: 06/13/15 14:00:00Notes: (Same as: Zofran) MEDICATION WASTE Product Size: 4 mg Product Wasted: ___ mg Inactive 06/13/2015 [facility] Topamax PO, BID, 0 Refill(s) Active 06/13/2015 [facility] Folic Acid 1 MG Oral Tablet 1 mg=1 tab, PO, Daily, 0 Refill(s) Active 06/13/2015 [facility] Farxiga PO, Daily, 0 Refill(s) Active 06/13/2015 [facility] LORazepam 1 mg oral tablet 1 mg=1 tab, PO, Bedtime, 0 Refill(s) Active 06/13/2015 [facility] Sublimaze 50 microgram, 1 mL, Route: IVP, Drug form: INJ, PRN, PRN Procedure, Start date: 06/13/15 13:34:00, Stop date: 06/13/15 16:00:00Notes: (Same as: Sublimaze) Preservative free. Inactive 06/13/2015 [facility] midazolam 1 mg, 1 mL, Route: IVP, Drug form: INJ, PRN, PRN Procedure, Start date: 06/13/15 13:34:00, Stop date: 06/13/15 16:00:00Notes: (Same as: Versed) MEDICATION WASTE Product Size: 5 mg Product Wasted: ___ mg Inactive 06/13/2015 [facility] Losartan PO, Daily, 0 Refill(s) Active 03/05/2015 [facility] Acetaminophen 325 MG / Hydrocodone Bitartrate 5 MG Oral Tablet [[place] 5/325] 1-2 tab, PO, Q4-6H, Pain, # 15 tab, 0 Refill(s) Active 11/22/2013 [facility] Ondansetron 4 MG Oral Tablet [Zofran] 4 mg=1 tab, PO, Q8H, as needed for nausea/vomiting, # 10 tab, 0 Refill(s) Active 11/22/2013 [facility] ciprofloxacin 500 mg oral tablet 500 mg=1 tab, PO, Q12H, # 20 tab, 0 Refill(s) Active 11/22/2013 [facility] Ceftriaxone 1 gm, Route: IVPB, Drug form: PDR/INJ, ONCE, Dosing Weight 88.636, kg, Priority: STAT, Start date: 11/22/13 6:30:00, Stop date: 11/22/13 6:30:00 Inactive 11/22/2013 [facility] Morphine 4 mg, Route: IVP, ONCE, Dosing Weight 88.636, kg, Priority: STAT, Start date: 11/22/13 5:34:00, Stop date: 11/22/13 5:34:00 Inactive 11/22/2013 [facility] Saline Flush 0.9% 5 mL, Route: IVP, Drug Form: INJ, Dosing Weight 88.636, kg, PRN, PRN Line Flush, Start date: 11/22/13 5:34:00, Duration: 24 hr, Stop date: 11/23/13 5:33:00Notes: Same as: BD Posiflush Sterile Inactive 11/22/2013 [facility] Sodium Chloride 0.154 MEQ/ML Injectable Solution 1,000 mL, Infuse Over: 1 hr, Route: IV, ONCE, Priority: STAT, Dosing Weight 88.636 kg, Start date: 11/22/13 5:34:00, Duration: 1 doses or times, Stop date: 11/22/13 5:34:00 Inactive 11/22/2013 [facility] Ondansetron 4 mg, Route: IVP, ONCE, Dosing Weight 88.636, kg, Priority: STAT, Start date: 11/22/13 5:34:00, Stop date: 11/22/13 5:34:00 Inactive 11/22/2013 [facility] Zofran 4 mg, Route: IVP, Drug form: INJ, ONCE, Dosing Weight 88.636, kg, Priority: STAT, Start date: 11/22/13 4:20:00, Stop date: 11/22/13 4:20:00 Inactive 11/22/2013 [facility] Morphine 4 mg, Route: IVP, Drug form: INJ, ONCE, Dosing Weight 88.636, kg, Priority: STAT, Start date: 11/22/13 4:20:00, Stop date: 11/22/13 4:20:00 Inactive 11/22/2013 [facility] acetaminophen 325 mg rectal suppository 325 mg, 1 supp, GA, Q4H, PRN, 12 supp, Pain, Substitution Allowed GA Active [facility] 11/10/2012 [facility] acetaminophen 650 mg, Route: GA, Drug form: SUPP, ONCE, Dosing Weight 79.545, kg, Priority: STAT, Start date: 11/10/12 2:19:00, Stop date: 11/10/12 2:19:00 GA No Longer Active [facility] 11/10/2012 [facility] potassium chloride 40 mEq, Route: PO, Drug form: ERTAB, ONCE, Dosing Weight 79.545, kg, Priority: Routine, Start date: 11/10/12 2:08:00, Stop date: 11/10/12 2:08:00 PO No Longer Active [facility] 11/10/2012 [facility] Saline Flush 0.9% 5 ml, Route: IVP, Drug Form: INJ, Dosing Weight 79.545, kg, PRN, PRN Line Flush, Start date: 11/09/12 22:47:00, Duration: 30 day, Stop date: 12/09/12 22:46:00 IVP No Longer Active [facility] 11/10/2012 [facility] Lorazepam (Ativan) 1 Mg Tablet Active [facility] Allergies, Adverse Reactions, Alerts Substance Category Reaction Severity Reaction type Status Date Reported Comments Source Sulfa (Sulfonamide Antibiotics) Mild Allergy to Substance Active 05/02/2008 [facility] azithromycin<sup>1</sup> Assertion Drug allergy Active 10/15/2013 Data migrated from [employer] on 10/29/14. Originally documented as ZITHROMAX. rash [facility] sulfa drugs<sup>2</sup> Assertion Drug allergy Active 10/15/2013 Data migrated from [employer] on 01/30/15. Originally documented as SULFA. Rash [facility] sulfa drugs<sup>1</sup> Assertion rash Drug allergy Active 10/15/2013 Data migrated from [employer] on 01/30/15. Originally documented as SULFA. Rash [facility] azithromycin<sup>2</sup> Assertion stomach upset Drug allergy Active 10/15/2013 Data migrated from [employer] on 10/29/14. Originally documented as ZITHROMAX. rash [facility] adhesive tape RASH Mild Allergy to Substance Active 04/02/2014 [facility] Z-ANNE MARIE SEVERE STOMACH CRAMPS Mild Allergy to Substance Active 04/02/2014 [facility] Codeine "Makes me really sick." Unknown Allergy to Substance Active 11/18/2014 [facility] Levofloxacin Unknown Allergy to Substance Active 12/29/2017 [facility] azithromycin Assertion Drug allergy Active [facility] sulfa drugs Assertion Drug allergy Active [facility] codeine sulfate Assertion vomting Drug allergy Active [facility] erythromycin Assertion stomach upset Drug allergy Active [facility] Cipro Assertion toxicity Drug allergy Active [facility] Immunizations Immunization Date Given Site Status Last Updated Comments Source pneumococcal 23-valent vaccine 06/29/2016 Right deltoid completed [facility] Results Order Name Results Value Reference Range Date Interpretation Comments Source CHEM PANEL BUN 12 7 - 22 02/07/2018 [facility] CHEM PANEL eGFR 88 02/07/2018 Result Comment: The eGFR is calculated using the CKD-EPI formula. In most young, healthy individuals the eGFR will be >90 mL/min/1.73m2. The eGFR declines with age. An eGFR of 60-89 may be normal in some populations, particularly the elderly, for whom the CKD-EPI formula has not been extensively validated. Use of the eGFR is not recommended in the following populations:

Individuals with unstable creatinine concentrations, including patients and those with serious co-morbid conditions.

Patients with extremes in muscle mass or diet.

The data above are obtained from the National Kidney Disease Education Program (NKDEP) which additionally recommends that when the eGFR is used in patients with extremes of body mass index for purposes of drug dosing, the eGFR should be multiplied by the estimated BMI. [facility] CHEM PANEL Creatinine Lvl 0.76 0.50 - 1.40 02/07/2018 [facility] HEMATOLOGY POC Hematocrit 39.0 36.0 - 48.0 02/07/2018 [facility] HEMATOLOGY POC Hemoglobin 13.3 12.0 - 16.0 02/07/2018 [facility] HEMATOLOGY POC Potassium 4.2 3.5 - 5.1 02/07/2018 [facility] HEMATOLOGY POC Glucose 140 70 - 99 02/07/2018 [facility] HEMATOLOGY POC Sodium 139 135 - 145 02/07/2018 [facility] URINE AND STOOL UA Spec Grav <=1.005 *NA* (11/05/16 10:34 PM) <=1.030 11/06/2016 [facility] URINE AND STOOL UA Leuk Est Negative (11/05/16 10:34 PM) Negative 11/06/2016 [facility] URINE AND STOOL UA Glucose 100 mg/dL Negative mg/dL 11/06/2016 [facility] URINE AND STOOL UA Ketones Negative *NA* (11/05/16 10:34 PM) Negative 11/06/2016 [facility] URINE AND STOOL UA pH 6.0 5.0 - 8.0 11/06/2016 [facility] URINE AND STOOL UA Protein Negative (11/05/16 10:34 PM) Negative 11/06/2016 [facility] URINE AND STOOL UA RBC None Seen (11/05/16 10:34 PM) 0 - 2 11/06/2016 [facility] URINE AND STOOL UA Bacteria Occasional /HPF None Seen /HPF 11/06/2016 [facility] URINE AND STOOL UA Sq Epi Occasional /LPF Few /LPF 11/06/2016 [facility] URINE AND STOOL UA WBC 0-2 /HPF None Seen /HPF 11/06/2016 [facility] URINE AND STOOL UA Urobilinogen 0.2 0.1 - 1.0 11/06/2016 [facility] URINE AND STOOL UA Nitrite Negative (11/05/16 10:34 PM) Negative 11/06/2016 [facility] URINE AND STOOL UA Bili Negative *NA* (11/05/16 10:34 PM) Negative 11/06/2016 [facility] URINE AND STOOL UA Blood Negative (11/05/16 10:34 PM) Negative 11/06/2016 [facility] URINE AND STOOL UA Color Yellow *NA* (11/05/16 10:34 PM) Yellow 11/06/2016 [facility] URINE AND STOOL UA Turbidity Clear (11/05/16 10:34 PM) Clear 11/06/2016 [facility] CHEM PANEL Lipase Lvl 182 73 - 393 11/06/2016 [facility] CHEM PANEL eGFR 93 11/06/2016 Result Comment: The eGFR is calculated using the CKD-EPI formula. In most young, healthy individuals the eGFR will be >90 mL/min/1.73m2. The eGFR declines with age. An eGFR of 60-89 may be normal in some populations, particularly the elderly, for whom the CKD-EPI formula has not been extensively validated. Use of the eGFR is not recommended in the following populations:

Individuals with unstable creatinine concentrations, including patients and those with serious co-morbid conditions.

Patients with extremes in muscle mass or diet.

The data above are obtained from the National Kidney Disease Education Program (NKDEP) which additionally recommends that when the eGFR is used in patients with extremes of body mass index for purposes of drug dosing, the eGFR should be multiplied by the estimated BMI. [facility] CHEM PANEL Total Protein 7.7 6.4 - 8.4 11/06/2016 [facility] CHEM PANEL ASPARTATE TRANSAMINASE 31 0 - 37 11/06/2016 [facility] CHEM PANEL Calcium Lvl 9.0 8.5 - 10.5 11/06/2016 [facility] CHEM PANEL Bili Total 0.5 0.2 - 1.3 11/06/2016 [facility] CHEM PANEL CO2 26 24 - 32 11/06/2016 [facility] CHEM PANEL Chloride Lvl 103 95 - 109 11/06/2016 [facility] CHEM PANEL Potassium Lvl 3.7 3.5 - 5.1 11/06/2016 [facility] CHEM PANEL Sodium Lvl 137 135 - 145 11/06/2016 [facility] CHEM PANEL ALANINE AMINOTRANSFERASE 60 0 - 65 11/06/2016 [facility] CHEM PANEL Albumin Lvl 4.2 3.5 - 5.0 11/06/2016 [facility] CHEM PANEL Alk Phos 84 39 - 136 11/06/2016 [facility] CHEM PANEL Glucose Lvl 208 70 - 99 11/06/2016 [facility] CHEM PANEL BUN 11 7 - 22 11/06/2016 [facility] CHEM PANEL Creatinine Lvl 0.74 0.50 - 1.40 11/06/2016 [facility] CHEM PANEL A/G Ratio 1.2 0.7 - 1.6 11/06/2016 [facility] CHEM PANEL AGAP 11.7 10.0 - 20.0 11/06/2016 [facility] CHEM PANEL Globulin 3.5 2.7 - 4.2 11/06/2016 [facility] CHEM PANEL B/C Ratio 15 6 - 25 11/06/2016 [facility] HEMATOLOGY Segs 54.2 45.0 - 75.0 11/06/2016 [facility] HEMATOLOGY Lymphocytes 37.3 20.0 - 40.0 11/06/2016 [facility] HEMATOLOGY Monocytes 5.9 2.0 - 12.0 11/06/2016 [facility] HEMATOLOGY Eosinophils 1.4 0.0 - 4.0 11/06/2016 [facility] HEMATOLOGY Monocytes # 0.7 0.0 - 0.8 11/06/2016 [facility] HEMATOLOGY Lymphocytes # 4.3 1.0 - 5.5 11/06/2016 [facility] HEMATOLOGY Eosinophils # 0.2 0.0 - 0.5 11/06/2016 [facility] HEMATOLOGY Basophils # 0.1 0.0 - 0.2 11/06/2016 [facility] HEMATOLOGY Basophils 1.2 0.0 - 1.0 11/06/2016 [facility] Segs-Bands # 6.3 1.5 - 8.1 11/06/2016 [facility] HEMATOLOGY MPV 7.7 7.4 - 10.4 11/06/2016 [facility] HEMATOLOGY MCHC 33.6 32.0 - 36.0 11/06/2016 [facility] HEMATOLOGY RDW 14.1 11.5 - 14.5 11/06/2016 [facility] HEMATOLOGY MCV 81.2 80.0 - 98.0 11/06/2016 [facility] MCH 27.3 27.0 - 31.0 11/06/2016 [facility] HEMATOLOGY Platelet 260 133 - 450 11/06/2016 [facility] HEMATOLOGY Hct 41.5 36.0 - 48.0 11/06/2016 [facility] HEMATOLOGY Hgb 13.9 12.0 - 16.0 11/06/2016 [facility] HEMATOLOGY WBC X 10x3 11.6 3.7 - 10.4 11/06/2016 [facility] HEMATOLOGY RBC X 10x6 5.11 4.20 - 5.40 11/06/2016 [facility] CHEM PANEL B/C Ratio 26 6 - 25 06/28/2016 [facility] CHEM PANEL Globulin 3.1 2.7 - 4.2 06/28/2016 [facility] CHEM PANEL A/G Ratio 1.3 0.7 - 1.6 06/28/2016 [facility] CHEM PANEL AGAP 13.2 10.0 - 20.0 06/28/2016 [facility] CHEM PANEL eGFR 93 06/28/2016 Result Comment: The eGFR is calculated using the CKD-EPI formula. In most young, healthy individuals the eGFR will be >90 mL/min/1.73m2. The eGFR declines with age. An eGFR of 60-89 may be normal in some populations, particularly the elderly, for whom the CKD-EPI formula has not been extensively validated. Use of the eGFR is not recommended in the following populations:

Individuals with unstable creatinine concentrations, including patients and those with serious co-morbid conditions.

Patients with extremes in muscle mass or diet.

The data above are obtained from the National Kidney Disease Education Program (NKDEP) which additionally recommends that when the eGFR is used in patients with extremes of body mass index for purposes of drug dosing, the eGFR should be multiplied by the estimated BMI. [facility] CHEM PANEL ALT 40 0 - 65 06/28/2016 [facility] CHEM PANEL Total Protein 7.1 6.4 - 8.4 06/28/2016 [facility] CHEM PANEL Albumin Lvl 4.0 3.5 - 5.0 06/28/2016 [facility] CHEM PANEL AST 22 0 - 37 06/28/2016 [facility] CHEM PANEL Calcium Lvl 9.2 8.5 - 10.5 06/28/2016 [facility] CHEM PANEL Bili Total 0.4 0.2 - 1.3 06/28/2016 [facility] CHEM PANEL Alk Phos 80 39 - 136 06/28/2016 [facility] CHEM PANEL Sodium Lvl 141 135 - 145 06/28/2016 [facility] CHEM PANEL Potassium Lvl 4.2 3.5 - 5.1 06/28/2016 [facility] CHEM PANEL CO2 25 24 - 32 06/28/2016 [facility] CHEM PANEL Chloride Lvl 107 95 - 109 06/28/2016 [facility] CHEM PANEL Creatinine Lvl 0.74 0.50 - 1.40 06/28/2016 [facility] CHEM PANEL BUN 19 7 - 22 06/28/2016 [facility] CHEM PANEL Glucose Lvl 135 70 - 99 06/28/2016 [facility] HEMATOLOGY Monocytes # 0.5 0.0 - 0.8 06/28/2016 [facility] HEMATOLOGY Eosinophils # 0.2 0.0 - 0.5 06/28/2016 [facility] HEMATOLOGY Basophils 0.9 0.0 - 1.0 06/28/2016 [facility] HEMATOLOGY Eosinophils 2.6 0.0 - 4.0 06/28/2016 [facility] HEMATOLOGY Basophils # 0.1 0.0 - 0.2 06/28/2016 [facility] HEMATOLOGY Lymphocytes # 2.9 1.0 - 5.5 06/28/2016 [facility] HEMATOLOGY Segs-Bands # 3.8 1.5 - 8.1 06/28/2016 [facility] HEMATOLOGY Monocytes 6.5 2.0 - 12.0 06/28/2016 [facility] HEMATOLOGY Lymphocytes 38.5 20.0 - 40.0 06/28/2016 [facility] HEMATOLOGY Segs 51.5 45.0 - 75.0 06/28/2016 [facility] HEMATOLOGY MCV 80.1 80.0 - 98.0 06/28/2016 [facility] HEMATOLOGY MCHC 33.8 32.0 - 36.0 06/28/2016 [facility] HEMATOLOGY MCH 27.1 27.0 - 31.0 06/28/2016 [facility] HEMATOLOGY MPV 8.1 7.4 - 10.4 06/28/2016 [facility] HEMATOLOGY Platelet 223 133 - 450 06/28/2016 [facility] HEMATOLOGY RDW 14.0 11.5 - 14.5 06/28/2016 [facility] HEMATOLOGY WBC 7.4 3.7 - 10.4 06/28/2016 [facility] HEMATOLOGY Hgb 13.8 12.0 - 16.0 06/28/2016 [facility] HEMATOLOGY RBC 5.10 4.20 - 5.40 06/28/2016 [facility] HEMATOLOGY Hct 40.8 36.0 - 48.0 06/28/2016 [facility] URINE AND STOOL UA Sq Epi Occasional /LPF Few /LPF 02/01/2016 [facility] URINE AND STOOL UA WBC 0-2 /HPF None Seen /HPF 02/01/2016 [facility] URINE AND STOOL UA Bacteria Many /HPF None Seen /HPF 02/01/2016 [facility] URINE AND STOOL UA RBC 0-2 /HPF 0 - 2 02/01/2016 [facility] URINE AND STOOL UA Turbidity Cloudy *ABN* (01/31/16 8:24 PM) Clear 02/01/2016 [facility] URINE AND STOOL UA Spec Grav 1.015 <=1.030 02/01/2016 [facility] URINE AND STOOL UA pH 6.5 5.0 - 8.0 02/01/2016 [facility] URINE AND STOOL UA Protein Negative (01/31/16 8:24 PM) Negative [facility] Glucose Negative (01/31/16 8:24 PM) Negative 02/01/2016 [facility] STO[facility] UA Ketones Negative *NA* (01/31/16 8:24 PM) Negative 02/01/2016 [facility] AND STOOL UA Nitrite Negative (01/31/16 8:24 PM) Negative 02/01/2016 [facility] URINE AND STOOL UA Blood Negative (01/31/16 8:24 PM) Negative 02/01/2016 [facility] URINE AND STOOL UA Bili Negative *NA* (01/31/16 8:24 PM) Negative 02/01/2016 [facility] URINE AND STOOL UA Urobilinogen 0.2 0.1 - 1.0 02/01/2016 [facility] URINE AND STOOL UA Leuk Est Negative (01/31/16 8:24 PM) Negative 02/01/2016 [facility] URINE AND STOOL UA Color Yellow *NA* (01/31/16 8:24 PM) Yellow 02/01/2016 [facility] CHEM PANEL Lipase Lvl 177 73 - 393 01/31/2016 [facility] CHEM PANEL eGFR 101 01/31/2016 Result Comment: The eGFR is calculated using the CKD-EPI formula. In most young, healthy individuals the eGFR will be >90 mL/min/1.73m2. The eGFR declines with age. An eGFR of 60-89 may be normal in some populations, particularly the elderly, for whom the CKD-EPI formula has not been extensively validated. Use of the eGFR is not recommended in the following populations:

Individuals with unstable creatinine concentrations, including patients and those with serious co-morbid conditions.

Patients with extremes in muscle mass or diet.

The data above are obtained from the National Kidney Disease Education Program (NKDEP) which additionally recommends that when the eGFR is used in patients with extremes of body mass index for purposes of drug dosing, the eGFR should be multiplied by the estimated BMI. [facility] ASPARTATE TRANSAMINASE 28 0 - 37 01/31/2016 [facility] CHEM PANEL Total Protein 7.3 6.4 - 8.4 01/31/2016 [facility] PAN[facility] Bili Total 0.4 0.2 - 1.3 01/31/2016 [facility] CHEM PANEL Calcium Lvl 9.0 8.5 - 10.5 01/31/2016 [facility] CHEM PANEL CO2 24 24 - 32 01/31/2016 [facility] CHEM PANEL Chloride Lvl 105 95 - 109 01/31/2016 [facility] CHEM PANEL Sodium Lvl 139 135 - 145 01/31/2016 [facility] CHEM PANEL Potassium Lvl 3.8 3.5 - 5.1 01/31/2016 [facility] PAN[facility] Creatinine Lvl 0.67 0.50 - 1.40 01/31/2016 [facility] CHEM PANEL Glucose Lvl 194 70 - 99 01/31/2016 [facility] CHEM PANEL BUN 14 7 - 22 01/31/2016 [facility] CHEM PANEL Alk Phos 85 39 - 136 01/31/2016 [facility] CHEM PANEL Albumin Lvl 3.9 3.5 - 5.0 01/31/2016 [facility] CHE[facility] PAN[facility] ALANINE AMINOTRANSFERASE 42 0 - 65 01/31/2016 [facility] CHEM PANEL A/G Ratio 1.1 0.7 - 1.6 01/31/2016 [facility] PAN[facility] Globulin 3.4 2.0 - 4.0 01/31/2016 [facility] CHEM PAN[facility] B/C Ratio 21 6 - 25 01/31/2016 [facility] CHEM PANEL AGAP 13.8 10.0 - 20.0 01/31/2016 [facility] HEMATOLOGY Basophils # 0.1 0.0 - 0.2 01/31/2016 [facility] HEMATOLOGY Eosinophils # 0.1 0.0 - 0.5 01/31/2016 [facility] HEMATOLOGY Monocytes # 0.6 0.0 - 0.8 01/31/2016 [facility] HEMATOLOGY Lymphocytes # 2.8 1.0 - 5.5 01/31/2016 [facility] Segs-Bands # 8.1 1.5 - 8.1 01/31/2016 [facility] HEMATOLOGY Basophils 0.6 0.0 - 1.0 01/31/2016 [facility] HEMATOLOGY Lymphocytes 23.8 20.0 - 40.0 01/31/2016 [facility] HEMATOLOGY Segs 69.0 45.0 - 75.0 01/31/2016 [facility] HEMATOLOGY Eosinophils 1.1 0.0 - 4.0 01/31/2016 [facility] HEMATOLOGY Monocytes 5.5 2.0 - 12.0 01/31/2016 [facility] Hct 40.5 36.0 - 48.0 01/31/2016 [facility] HEMATOLOGY MCHC 33.5 32.0 - 36.0 01/31/2016 [facility] HEMATOLOGY RDW 14.0 11.5 - 14.5 01/31/2016 [facility] MCV 80.9 80.0 - 98.0 01/31/2016 [facility] MCH 27.1 27.0 - 31.0 01/31/2016 [facility] HEMATOLOGY Platelet 275 133 - 450 01/31/2016 [facility] HEMATOLOGY MPV 7.9 7.4 - 10.4 01/31/2016 [facility] HEMATOLOGY Hgb 13.5 12.0 - 16.0 01/31/2016 [facility] HEMATOLOGY RBC X 10x6 5.01 4.20 - 5.40 01/31/2016 [facility] HEMATOLOGY WBC X 10x3 11.7 3.7 - 10.4 01/31/2016 [facility] CHEM PANEL Magnesium Lvl 1.9 1.8 - 2.4 11/27/2015 [facility] ELECTROLYTES AGAP 14.0 10.0 - 20.0 11/27/2015 [facility] ELECTROLYTES eGFR 89 11/27/2015 Result Comment: The eGFR is calculated using the CKD-EPI formula. In most young, healthy individuals the eGFR will be >90 mL/min/1.73m2. The eGFR declines with age. An eGFR of 60-89 may be normal in some populations, particularly the elderly, for whom the CKD-EPI formula has not been extensively validated. Use of the eGFR is not recommended in the following populations:

Individuals with unstable creatinine concentrations, including patients and those with serious co-morbid conditions.

Patients with extremes in muscle mass or diet.

The data above are obtained from the National Kidney Disease Education Program (NKDEP) which additionally recommends that when the eGFR is used in patients with extremes of body mass index for purposes of drug dosing, the eGFR should be multiplied by the estimated BMI. [facility] ELECTROLYTES Calcium Lvl 8.8 8.5 - 10.5 11/27/2015 [facility] ELECTROLYTES Chloride Lvl 104 95 - 109 11/27/2015 [facility] ELECTROLYTES CO2 22 24 - 32 11/27/2015 [facility] ELECTROLYTES Potassium Lvl 4.0 3.5 - 5.1 11/27/2015 [facility] ELECTROLYTES Glucose Lvl 186 70 - 99 11/27/2015 [facility] ELECTROLYTES BUN 10 7 - 22 11/27/2015 [facility] ELECTROLYTES Creatinine Lvl 0.76 0.50 - 1.40 11/27/2015 [facility] ELECTROLYTES Sodium Lvl 136 135 - 145 11/27/2015 [facility] Lymphocytes # 2.3 1.0 - 5.5 11/27/2015 [facility] HEMATOLOGY Monocytes 5.8 2.0 - 12.0 11/27/2015 [facility] HEMATOLOGY Eosinophils 0.7 0.0 - 4.0 11/27/2015 [facility] HEMATOLOGY Basophils 0.9 0.0 - 1.0 11/27/2015 [facility] Segs-Bands # 6.8 1.5 - 8.1 11/27/2015 [facility] Basophils # 0.1 0.0 - 0.2 11/27/2015 [facility] HEMATOLOGY Eosinophils # 0.1 0.0 - 0.5 11/27/2015 [facility] HEMATOLOGY Monocytes # 0.6 0.0 - 0.8 11/27/2015 [facility] HEMATOLOGY Segs 69.2 45.0 - 75.0 11/27/2015 [facility] Lymphocytes 23.4 20.0 - 40.0 11/27/2015 [facility] MCH 27.0 27.0 - 31.0 11/27/2015 [facility] MCHC 33.4 32.0 - 36.0 11/27/2015 [facility] RDW 13.5 11.5 - 14.5 11/27/2015 [facility] Platelet 220 133 - 450 11/27/2015 [facility] MPV 7.5 7.4 - 10.4 11/27/2015 [facility] HEMATOLOGY Hct 39.2 36.0 - 48.0 11/27/2015 [facility] HEMATOLOGY MCV 80.9 80.0 - 98.0 11/27/2015 [facility] HEMATOLOGY Hgb 13.1 12.0 - 16.0 11/27/2015 [facility] HEMATOLOGY WBC 9.9 3.7 - 10.4 11/27/2015 [facility] HEMATOLOGY RBC 4.84 4.20 - 5.40 11/27/2015 [facility] SPECIAL CHEMISTRY Hgb A1C 6.1 <=5.6 % 11/27/2015 [facility] URINE AND STOOL UA Urobilinogen <=1.0 mg/dL 0.1 - 1.0 11/26/2015 [facility] URINE AND STOOL UA pH 7.0 5.0 - 8.0 11/26/2015 [facility] URINE AND STOOL UA Glucose 500 mg/dL Negative mg/dL 11/26/2015 [facility] URINE AND STOOL UA Turbidity Slight *ABN* (11/26/15 3:08 AM) Clear 11/26/2015 [facility] URINE AND STOOL UA Spec Grav 1.018 <=1.030 11/26/2015 [facility] URINE AND STOOL UA Bili Negative *NA* (11/26/15 3:08 AM) Negative 11/26/2015 [facility] URINE AND STOOL UA Nitrite Positive *ABN* (11/26/15 3:08 AM) Negative 11/26/2015 [facility] URINE AND STOOL UA Blood Negative (11/26/15 3:08 AM) Negative 11/26/2015 [facility] URINE AND STOOL UA Ketones Negative mg/dL Negative mg/dL 11/26/2015 [facility] URINE AND STOOL UA [place] Yeast Occasional /HPF None Seen /HPF 11/26/2015 [facility] URINE AND STOOL UA Leuk Est Negative (11/26/15 3:08 AM) Negative 11/26/2015 [facility] URINE AND STOOL UA WBC <1 0 - 5 11/26/2015 [facility] URINE AND STOOL UA Sq Epi Occasional /LPF Few /LPF 11/26/2015 [facility] URINE AND STOOL UA Bacteria Occasional /HPF None Seen /HPF 11/26/2015 [facility] URINE AND STOOL UA RBC 1 0 - 2 11/26/2015 [facility] URINE AND STOOL UA Color Yellow *NA* (11/26/15 3:08 AM) Yellow 11/26/2015 [facility] URINE AND STOOL UA Protein Negative mg/dL Negative mg/dL 11/26/2015 [facility] CHEM PANEL Glucose Lvl 133 70 - 99 11/26/2015 [facility] CHEM PANEL Calcium Lvl 8.7 8.5 - 10.5 11/26/2015 [facility] CHEM PANEL CO2 21 24 - 32 11/26/2015 [facility] CHEM PANEL eGFR 89 11/26/2015 Result Comment: The eGFR is calculated using the CKD-EPI formula. In most young, healthy individuals the eGFR will be >90 mL/min/1.73m2. The eGFR declines with age. An eGFR of 60-89 may be normal in some populations, particularly the elderly, for whom the CKD-EPI formula has not been extensively validated. Use of the eGFR is not recommended in the following populations:

Individuals with unstable creatinine concentrations, including patients and those with serious co-morbid conditions.

Patients with extremes in muscle mass or diet.

The data above are obtained from the National Kidney Disease Education Program (NKDEP) which additionally recommends that when the eGFR is used in patients with extremes of body mass index for purposes of drug dosing, the eGFR should be multiplied by the estimated BMI. [facility] CHEM PANEL BUN 16 7 - 22 11/26/2015 [facility] CHEM PANEL Creatinine Lvl 0.77 0.50 - 1.40 11/26/2015 [facility] CHEM PANEL Sodium Lvl 136 135 - 145 11/26/2015 [facility] CHEM PANEL Potassium Lvl 3.8 3.5 - 5.1 11/26/2015 [facility] CHEM PANEL Chloride Lvl 104 95 - 109 11/26/2015 [facility] CHEM PANEL AGAP 14.8 10.0 - 20.0 11/26/2015 [facility] HEMATOLOGY Lymphocytes # 3.6 1.0 - 5.5 11/26/2015 [facility] HEMATOLOGY Monocytes # 0.8 0.0 - 0.8 11/26/2015 [facility] HEMATOLOGY Segs 61.1 45.0 - 75.0 11/26/2015 [facility] HEMATOLOGY Eosinophils 1.0 0.0 - 4.0 11/26/2015 [facility] HEMATOLOGY Basophils 1.3 0.0 - 1.0 11/26/2015 [facility] HEMATOLOGY Eosinophils # 0.1 0.0 - 0.5 11/26/2015 [facility] HEMATOLOGY Segs-Bands # 7.3 1.5 - 8.1 11/26/2015 [facility] HEMATOLOGY Lymphocytes 30.0 20.0 - 40.0 11/26/2015 [facility] HEMATOLOGY Monocytes 6.6 2.0 - 12.0 11/26/2015 [facility] HEMATOLOGY Basophils # 0.2 0.0 - 0.2 11/26/2015 [facility] HEMATOLOGY WBC 12.0 3.7 - 10.4 11/26/2015 [facility] HEMATOLOGY RDW 13.6 11.5 - 14.5 11/26/2015 [facility] HEMATOLOGY MPV 7.8 7.4 - 10.4 11/26/2015 [facility] HEMATOLOGY MCV 80.9 80.0 - 98.0 11/26/2015 [facility] HEMATOLOGY MCH 26.6 27.0 - 31.0 11/26/2015 [facility] HEMATOLOGY Hgb 13.4 12.0 - 16.0 11/26/2015 [facility] RBC 5.05 4.20 - 5.40 11/26/2015 [facility] MCHC 32.9 32.0 - 36.0 11/26/2015 [facility] Hct 40.8 36.0 - 48.0 11/26/2015 [facility] Platelet 220 133 - 450 11/26/2015 [facility] CARDIAC ENZYMES Troponin-I <0.02 0.00 - 0.40 09/30/2015 [facility] CARDIAC ENZYMES CK MB 0.6 0.5 - 3.6 09/30/2015 [facility] CARDIAC ENZYMES Total CK 87 12 - 191 09/30/2015 [facility] CARDIAC ENZYMES CK MB Index 0.7 0.0 - 2.5 09/30/2015 [facility] CHEM PANEL eGFR 82 09/30/2015 Result Comment: The eGFR is calculated using the CKD-EPI formula. In most young, healthy individuals the eGFR will be >90 mL/min/1.73m2. The eGFR declines with age. An eGFR of 60-89 may be normal in some populations, particularly the elderly, for whom the CKD-EPI formula has not been extensively validated. Use of the eGFR is not recommended in the following populations:

Individuals with unstable creatinine concentrations, including patients and those with serious co-morbid conditions.

Patients with extremes in muscle mass or diet.

The data above are obtained from the National Kidney Disease Education Program (NKDEP) which additionally recommends that when the eGFR is used in patients with extremes of body mass index for purposes of drug dosing, the eGFR should be multiplied by the estimated BMI. [facility] CHEM PANEL Glucose Lvl 185 70 - 99 09/30/2015 [facility] CHEM PANEL BUN 10 7 - 22 09/30/2015 [facility] CHEM PANEL Sodium Lvl 137 135 - 145 09/30/2015 [facility] CHEM PANEL Creatinine Lvl 0.82 0.50 - 1.40 09/30/2015 [facility] CHEM PANEL AGAP 11.7 10.0 - 20.0 09/30/2015 [facility] CHEM PANEL A/G Ratio 1.2 0.7 - 1.6 09/30/2015 [facility] CHEM PANEL Globulin 3.3 2.0 - 4.0 09/30/2015 [facility] CHEM PANEL B/C Ratio 12 6 - 25 09/30/2015 [facility] CHEM PANEL Bili Total 0.3 0.2 - 1.3 09/30/2015 [facility] CHEM PANEL Potassium Lvl 3.7 3.5 - 5.1 09/30/2015 [facility] CHEM PANEL Chloride Lvl 102 95 - 109 09/30/2015 [facility] CHEM PANEL CO2 27 24 - 32 09/30/2015 [facility] CHEM PANEL Calcium Lvl 8.4 8.5 - 10.5 09/30/2015 [facility] CHEM PANEL Total Protein 7.3 6.4 - 8.4 09/30/2015 [facility] CHEM PANEL AST 27 0 - 37 09/30/2015 [facility] CHEM PANEL ALT 61 0 - 65 09/30/2015 [facility] CHEM PANEL Alk Phos 87 39 - 136 09/30/2015 [facility] CHEM PANEL Albumin Lvl 4.0 3.5 - 5.0 09/30/2015 [facility] HEMATOLOGY MPV 7.9 7.4 - 10.4 09/30/2015 [facility] HEMATOLOGY RBC 4.87 4.20 - 5.40 09/30/2015 [facility] HEMATOLOGY WBC 6.8 3.7 - 10.4 09/30/2015 [facility] HEMATOLOGY Hct 40.0 36.0 - 48.0 09/30/2015 [facility] HEMATOLOGY Hgb 13.3 12.0 - 16.0 09/30/2015 [facility] HEMATOLOGY RDW 14.2 11.5 - 14.5 09/30/2015 [facility] HEMATOLOGY Platelet 227 133 - 450 09/30/2015 [facility] HEMATOLOGY MCHC 33.2 32.0 - 36.0 09/30/2015 [facility] HEMATOLOGY MCV 82.1 80.0 - 98.0 09/30/2015 [facility] MCH 27.2 27.0 - 31.0 09/30/2015 [facility] HEMATOLOGY Basophils # 0.1 0.0 - 0.2 09/30/2015 [facility] Eosinophils # 0.1 0.0 - 0.5 09/30/2015 [facility] HEMATOLOGY Segs-Bands # 3.6 1.5 - 8.1 09/30/2015 [facility] Monocytes # 0.6 0.0 - 0.8 09/30/2015 [facility] Lymphocytes # 2.4 1.0 - 5.5 09/30/2015 [facility] Monocytes 8.4 2.0 - 12.0 09/30/2015 [facility] Lymphocytes 35.7 20.0 - 40.0 09/30/2015 [facility] Basophils 1.4 0.0 - 1.0 09/30/2015 [facility] Eosinophils 2.1 0.0 - 4.0 09/30/2015 [facility] Segs 52.4 45.0 - 75.0 09/30/2015 [facility] CHEM PANEL eGFR 100 03/05/2015 Result Comment: The eGFR is calculated using the CKD-EPI formula. In most young, healthy individuals the eGFR will be >90 mL/min/1.73m2. The eGFR declines with age. An eGFR of 60-89 may be normal in some populations, particularly the elderly, for whom the CKD-EPI formula has not been extensively validated. Use of the eGFR is not recommended in the following populations:

Individuals with unstable creatinine concentrations, including patients and those with serious co-morbid conditions.

Patients with extremes in muscle mass or diet.

The data above are obtained from the National Kidney Disease Education Program (NKDEP) which additionally recommends that when the eGFR is used in patients with extremes of body mass index for purposes of drug dosing, the eGFR should be multiplied by the estimated BMI. [facility] CHEM PANEL BUN 18 7 - 22 03/05/2015 [facility] CHEM PANEL Creatinine Lvl 0.7 0.5 - 1.4 03/05/2015 [facility] URINE AND STOOL UA Urobilinogen <=1.0 mg/dL 0.1 - 1.0 11/22/2013 [facility] URINE AND STOOL UA Color Ltyellow 11/22/2013 [facility] URINE AND STOOL UA Bacteria Moderate /HPF None Seen /HPF 11/22/2013 [facility] URINE AND STOOL UA RBC 6 0 - 2 11/22/2013 [facility] URINE AND STOOL UA Sq Epi Occasional /LPF Few /LPF 11/22/2013 [facility] URINE AND STOOL UA WBC 12 0 - 5 11/22/2013 [facility] URINE AND STOOL UA Leuk Est Small *ABN* (11/22/13 5:41 AM) Negative 11/22/2013 [facility] URINE AND STOOL UA Nitrite Positive *ABN* (11/22/13 5:41 AM) Negative 11/22/2013 [facility] URINE AND STOOL UA Bili Negative *NA* (11/22/13 5:41 AM) Negative 11/22/2013 [facility] URINE AND STOOL UA Blood Small *ABN* (11/22/13 5:41 AM) Negative 11/22/2013 [facility] URINE AND STOOL UA Protein Negative mg/dL Negative mg/dL 11/22/2013 [facility] URINE AND STOOL UA Glucose Negative mg/dL Negative mg/dL 11/22/2013 [facility] URINE AND STOOL UA Ketones Negative mg/dL Negative mg/dL 11/22/2013 [facility] URINE AND STOOL UA Turbidity Marked *ABN* (11/22/13 5:41 AM) Clear 11/22/2013 [facility] URINE AND STOOL UA pH 7.0 5.0 - 8.0 11/22/2013 [facility] URINE AND STOOL UA Spec Grav 1.009 <=1.030 11/22/2013 [facility] CHEM PANEL eGFR 86 11/22/2013 <sup>1</sup>Result Comment: The eGFR is calculated using the CKD-EPI formula. In most young, healthy individuals the eGFR will be >90 mL/min/1.73m2. The eGFR declines with age. An eGFR of 60-89 may be normal in some populations, particularly the elderly, for whom the CKD-EPI formula has not been extensively validated. Use of the eGFR is not recommended in the following populations:& lt;br/>
Individuals with unstable creatinine concentrations, including patients and those with serious co-morbid conditions.

Patients with extremes in muscle mass or diet.

The data above are obtained from the National Kidney Disease Education Program (NKDEP) which additionally recommends that when the eGFR is used in patients with extremes of body mass index for purposes of drug dosing, the eGFR should be multiplied by the estimated BMI. [facility] CHEM PANEL Total Protein 7.0 6.4 - 8.4 11/22/2013 [facility] CHEM PANEL CO2 25 24 - 32 11/22/2013 [facility] CHEM PANEL Calcium Lvl 9.7 8.5 - 10.5 11/22/2013 [facility] CHEM PANEL Bili Total 0.4 0.2 - 1.3 11/22/2013 [facility] CHEM PANEL Alk Phos 76 39 - 136 11/22/2013 [facility] CHEM PANEL Albumin Lvl 3.9 3.5 - 5.0 11/22/2013 [facility] CHEM PANEL ALT 52 0 - 65 11/22/2013 [facility] CHEM PANEL AST 30 0 - 37 11/22/2013 [facility] CHEM PANEL Sodium Lvl 138 135 - 145 11/22/2013 [facility] CHEM PANEL Creatinine Lvl 0.8 0.5 - 1.4 11/22/2013 [facility] CHEM PANEL BUN 14 7 - 22 11/22/2013 [facility] CHEM PANEL Glucose Lvl 159 70 - 99 11/22/2013 <sup>2</sup>Interpretive Data: Adult reference range values reflect the clinical guidelines
of the [place] [employer]. [facility] CHEM PANEL Potassium Lvl 3.8 3.5 - 5.1 11/22/2013 [facility] CHEM PANEL Chloride Lvl 104 95 - 109 11/22/2013 [facility] CHEM PANEL Globulin 3.1 2.0 - 4.0 11/22/2013 [facility] CHEM PANEL B/C Ratio 18 6 - 25 11/22/2013 [facility] CHEM PANEL AGAP 12.8 10.0 - 20.0 11/22/2013 [facility] CHEM PANEL A/G Ratio 1.3 0.7 - 1.6 11/22/2013 [facility] HEMATOLOGY MPV 8.4 7.4 - 10.4 11/22/2013 [facility] HEMATOLOGY MCH 28.3 27.0 - 31.0 11/22/2013 [facility] HEMATOLOGY MCHC 34.0 32.0 - 36.0 11/22/2013 [facility] HEMATOLOGY RDW 13.8 11.5 - 14.5 11/22/2013 [facility] HEMATOLOGY WBC 9.2 3.7 - 10.4 11/22/2013 [facility] HEMATOLOGY Platelet 253 133 - 450 11/22/2013 [facility] HEMATOLOGY RBC 4.41 4.20 - 5.40 11/22/2013 [facility] HEMATOLOGY Hgb 12.5 12.0 - 16.0 11/22/2013 [facility] HEMATOLOGY Hct 36.6 36.0 - 48.0 11/22/2013 [facility] HEMATOLOGY MCV 83.1 81.0 - 99.0 11/22/2013 [facility] HEMATOLOGY Eosinophils # 0.2 0.0 - 0.5 11/22/2013 [facility] HEMATOLOGY Basophils # 0.0 0.0 - 0.2 11/22/2013 [facility] HEMATOLOGY Monocytes # 0.5 0.0 - 0.8 11/22/2013 [facility] HEMATOLOGY Lymphocytes # 2.8 1.0 - 5.5 11/22/2013 [facility] HEMATOLOGY Segs 61.2 45.0 - 75.0 11/22/2013 [facility] HEMATOLOGY Monocytes 5.7 2.0 - 12.0 11/22/2013 [facility] HEMATOLOGY Eosinophils 1.9 0.0 - 4.0 11/22/2013 [facility] HEMATOLOGY Basophils 0.5 0.0 - 1.0 11/22/2013 [facility] HEMATOLOGY Segs-Bands # 5.6 1.5 - 8.1 11/22/2013 [facility] HEMATOLOGY Lymphocytes 30.7 20.0 - 40.0 11/22/2013 [facility] CHEMISTRY U Benzodia Scr Negative *NA* (11/10/2012 01:24:00) Negative 11/10/[address] [facility] CHEMISTRY U Mili Scr Negative *NA* (11/10/2012 01:24:00) Negative 11/10/[address] [facility] CHEMISTRY U Amph Scr Negative *NA* (11/10/2012 01:24:00) Negative 11/10/[address] [facility] CHEMISTRY U Opiate Scr Negative *NA* (11/10/2012 01:24:00) Negative 11/10/[address] [facility] CHEMISTRY UDS Note See Note 4 (11/10/2012 01:24:00) 11/10/2012 Normal <sup>4</sup>Interpretive Data: Drugs reported as positive have not been confirmed by a second
method and should be used for medical purposes only. To order
confirmation, contact laboratory.

note: Below are cut-off concentrations for all urine drugs of
abuse performed in the laboratory. Some drugs listed in the table
may not be included in this panel.

Description Cut-off concentration

Amphetamine 1000 ng/mL
Barbiturates 200 ng/mL
Benzodiazepines 300 ng/mL
Cocaine metabolites 300 ng/mL
Opiates 300 ng/mL
Phencyclidine 25 ng/mL
Propoxyphene 300 ng/mL
Marijuana metabolites 50 ng/mL
Methadone 300 ng/m L
Urine alcohol 20 mg/dL [facility] CHEMISTRY U Phencyc Scr Negative *NA* (11/10/2012 01:24:00) Negative 11/10/2012 [facility] U Cannab Scr Positive *ABN* (11/10/2012 01:24:00) Negative 11/10/2012 ABN [facility] U Cocaine Scr Negative *NA* (11/10/2012 01:24:00) Negative 11/10/2012 [facility] U Preg Negative (11/10/2012 01:24:00) Negative 11/10/2012 Normal [facility] URINALYSIS UA Ketones Negative mg/dL *NA* (11/10/2012 01:24:00) Negative 11/10/[address] [facility] URINALYSIS UA Urobilinogen 0.1 - 1.0 11/10/[address] [facility] URINALYSIS UA Color Ltyellow 11/10/2012 NA [facility] URINALYSIS UA Turbidity Clear (11/10/2012 01:24:00) Clear 11/10/2012 Normal [facility] URINALYSIS UA Spec Grav 1.013 <=1.030 11/10/2012 Normal [facility] URINALYSIS UA Glucose Negative mg/dL *NA* (11/10/2012 01:24:00) Negative 11/10/[address] [facility] URINALYSIS UA Protein Negative mg/dL (11/10/2012 01:24:00) Negative 11/10/2012 Normal [facility] URINALYSIS UA pH 6.0 5.0 - 8.0 11/10/2012 Normal [facility] URINALYSIS UA Bili Negative *NA* (11/10/2012 01:24:00) Negative 11/10/2012 NA [facility] URINALYSIS UA WBC 1 0 - 5 11/10/2012 Normal [facility] URINALYSIS UA Nitrite Negative (11/10/2012 01:24:00) Negative 11/10/2012 Normal [facility] URINALYSIS UA Blood Negative (11/10/2012 01:24:00) Negative 11/10/2012 Normal [facility] URINALYSIS UA Leuk Est Negative (11/10/2012 01:24:00) Negative 11/10/2012 Normal [facility] URINALYSIS UA Sq Epi Occasional /LPF *NA* (11/10/2012 01:24:00) Few 11/10/2012 NA [facility] URINALYSIS UA Hyal Cast 1 0 - 2 11/10/2012 Normal [facility] URINALYSIS UA RBC 1 0 - 2 11/10/2012 Normal [facility] BEDSIDE GLUCOSE TESTING Gluc POC Lifscn 142 70 - 99 11/10/2012 HI <sup>1</sup>Interpretive Data: Upper Reportable Limit: 200 mg/dL. [facility] BEDSIDE GLUCOSE TESTING Comment1 Notify SYDNEY/ 11/10/[address] [facility] CHEMISTRY CK MB <0.5 0.5 - 3.6 11/10/2012 Normal [facility] CHEMISTRY Troponin-I <0.02 0.00 - 0.40 11/10/2012 Normal [facility] CHEMISTRY Chloride Lvl 105 95 - 109 11/10/2012 Normal [facility] CHEMISTRY Potassium Lvl 3.4 3.5 - 5.1 11/10/2012 LOW [facility] CHEMISTRY Sodium Lvl 141 135 - 145 11/10/2012 Normal [facility] CHEMISTRY eGFR 86 11/10/2012 NA <sup>2</sup>Result Comment: The eGFR is calculated using the CKD-EPI formula. In most young, healthy individuals the eGFR will be >90 mL/min/1.73m2. The eGFR declines with age. An eGFR of 60-89 may be normal in some populations, particularly the elderly, for whom the CKD-EPI formula has not been extensively validated. Use of the eGFR is not recommended in the following populations:& lt;br/>
Individuals with unstable creatinine concentrations, including patients and those with serious co-morbid conditions.

Patients with extremes in muscle mass or diet.

The data above are obtained from the National Kidney Disease Education Program (NKDEP) which additionally recommends that when the eGFR is used in patients with extremes of body mass index for purposes of drug dosing, the eGFR should be multiplied by the estimated BMI. [facility] CHEMISTRY B/C Ratio 18 6 - 25 11/10/2012 Normal [facility] CHEMISTRY Globulin 3.1 2.0 - 4.0 11/10/2012 Normal [facility] CHEMISTRY A/G Ratio 1.4 0.7 - 1.6 11/10/2012 Normal [facility] CHEMISTRY AGAP 12.4 10.0 - 20.0 11/10/2012 Normal [facility] CHEMISTRY Bili Total 0.4 0.2 - 1.3 11/10/2012 Normal [facility] CHEMISTRY AST 17 0 - 37 11/10/2012 Normal [facility] CHEMISTRY ALT 32 0 - 65 11/10/2012 Normal [facility] CHEMISTRY Alk Phos 80 39 - 136 11/10/2012 Normal [facility] CHEMISTRY Total Protein 7.3 6.4 - 8.4 11/10/2012 Normal [facility] CHEMISTRY Albumin Lvl 4.2 3.5 - 5.0 11/10/2012 Normal [facility] CHEMISTRY Creatinine Lvl 0.8 0.5 - 1.4 11/10/2012 Normal [facility] CHEMISTRY CO2 27 24 - 32 11/10/2012 Normal [facility] CHEMISTRY Calcium Lvl 8.9 8.5 - 10.5 11/10/2012 Normal [facility] CHEMISTRY Glucose Lvl 140 70 - 99 11/10/2012 HI <sup>3</sup>Interpretive Data: Adult reference range values reflect the clinical guidelines
of the [place] [employer]. [facility] CHEMISTRY BUN 14 7 - 22 11/10/2012 Normal [facility] CHEMISTRY Total CK 58 12 - 191 11/10/2012 Normal [facility] CHEMISTRY CK MB Index <0.9 0.0 - 2.5 11/10/2012 Normal [facility] HEMATOLOGY PTT 29.6 22.9 - 35.8 11/10/2012 Normal <sup>8</sup>Interpretive Data: Heparin Therapeutic Range: 57 - 92 Seconds [facility] HEMATOLOGY PT 13.2 12.0 - 14.7 11/10/2012 Normal [facility] HEMATOLOGY INR 0.98 0.85 - 1.17 11/10/2012 Normal <sup>7</sup>Interpretive Data: RECOMMENDED RANGES FOR PROTIME INR:
2.0-3.0 for most medical and surgical thromboembolic states.
2.5-3.5 for artificial heart valves and recurrent embolism.

INR SHOULD BE USED ONLY FOR PATIENTS ON STABLE ANTICOAGULANT THERAPY. [facility] HEMATOLOGY RBC 4.54 4.20 - 5.40 11/10/2012 Normal [facility] HEMATOLOGY WBC 13.4 3.7 - 10.4 11/10/2012 HI [facility] HEMATOLOGY Hgb 12.6 12.0 - 16.0 11/10/2012 Normal [facility] MCH 27.7 27.0 - 31.0 11/10/2012 Normal [facility] Hct 38.0 36.0 - 48.0 11/10/2012 Normal [facility] HEMATOLOGY MCV 83.8 81.0 - 99.0 11/10/2012 Normal [facility] HEMATOLOGY Platelet 262 133 - 450 11/10/2012 Normal [facility] MCHC 33.1 32.0 - 36.0 11/10/2012 Normal [facility] RDW 13.1 11.5 - 14.5 11/10/2012 Normal [facility] MPV 8.0 7.4 - 10.4 11/10/2012 Normal [facility] Basophils # 0.0 0.0 - 0.2 11/10/2012 Normal [facility] HEMATOLOGY Eosinophils # 0.0 0.0 - 0.5 11/10/2012 Normal [facility] HEMATOLOGY RBC Morph Normal (11/09/2012 23:30:00) 11/10/2012 Normal [facility] HEMATOLOGY Lymphocytes 11.5 20.0 - 40.0 11/10/2012 LOW [facility] HEMATOLOGY Segs 85.8 45.0 - 75.0 11/10/2012 HI [facility] HEMATOLOGY Plt Morph Normal (11/09/2012 23:30:00) 11/10/2012 Normal [facility] HEMATOLOGY Segs-Bands # 11.5 1.5 - 8.1 11/10/2012 [facility] HEMATOLOGY Basophils 0.0 0.0 - 1.0 11/10/2012 Normal [facility] HEMATOLOGY Eosinophils 0.4 0.0 - 4.0 11/10/2012 Normal [facility] HEMATOLOGY Monocytes 2.3 2.0 - 12.0 11/10/2012 Normal [facility] HEMATOLOGY Monocytes # 0.3 0.0 - 0.8 11/10/2012 Normal [facility] HEMATOLOGY Lymphocytes # 1.6 1.0 - 5.5 11/10/2012 Normal [facility] CHEMISTRY Etoh (%) <0.003 11/09/2012 NA <sup>5</sup>Interpretive Data: Negative Range: <0.003%
Toxic Range: >0.25% [facility] CHEMISTRY Ethanol Lvl <3 11/09/2012 NA <sup>6</sup>Interpretive Data: Negative Range: <3 mg/dL
Toxic Range: >250 mg/dL [facility] Pathology Reports No Data Provided for This Section Diagnostic Reports Report Value Date Source Carotid artery Doppler bilat US STUDY: Carotid artery Doppler bilat US 04/14/2018 1:04 PM CDT Ordering Physician: Nery Salazar MD Patient Name: JAZ BERNARD MR: [id number] : 1960; Age: 58 years y/o Female Clinical Indication: - E78.2 Mixed hyperlipidemia Comparison: 02/19/2007 TECHNIQUE: Lin-scale, color Doppler and spectral Doppler of the carotid arteries was performed. Any reported ICA stenoses indirectly reference the distal internal carotid diameter as the denominator for the stenosis measurement, utilizing consensus panel criteria. FINDINGS: RIGHT CAROTID Grayscale images:No significant plaque ICA PSV: 95 cm/sec CCA PSV: 78 cm/sec ICA/CCA PSV RATIO: 1.2 Vertebral flow: Antegrade. External carotid: Patent. LEFT CAROTID SYSTEM Grayscale images: No significant plaque ICA PSV: 86 cm/sec CCA PSV: 82 cm/sec ICA/CCA PSV RATIO: 1.1 Vertebral flow: Antegrade. External carotid: Patent. IMPRESSION: 1. RIGHT: ICA stenosis <50% by velocity criteria. 2. LEFT: ICA stenosis <50% by velocity criteria. Consensus panel Doppler US criteria for diagnosis of ICA stenosis: Stenosis (%) ICA PSV (cm/sec) ICA/CCA ratio <50 <125 <2.0 50-69 125-230 2.0-4.0 >70 but less than >230 >4.0 near occlusion Near occlusion High, low, or Variable undetectable SL: [id number] 04/14/2018 [facility] Thyroid US Clinical Indication: - E04.1 Nontoxic single thyroid nodule. Comparison: 10/25/2013. TECHNIQUE: Multiplanar grayscale and color Doppler ultrasound of the neck were obtained in the area of the thyroid. FINDINGS: Thyroid parenchyma: Heterogeneous with nodules listed below Size: Right thyroid: 6.0 x 2.3 x 1.8 cm Left thyroid: 4.6 x 1.4 x 1.6 cm Isthmus thickness: 0.4 cm Thyroid nodules: Nodule 1: Location: Superior right lobe Size: 1.5 x 1.0 x 1.2 cm (previously 1.7 x 0.8 x 1.3 cm) Composition: Solid or almost completely solid (2 points). Echogenicity: Isoechoic (1 point). Shape: Wider than tall (0 points). Margins: Smooth (0 points). Echogenic foci: Absent (0 points). Other: None. ACR TI-RADS Score: TR3 - Mildly suspicious (total 3 points). -- ACR recommendation:=2.5 cm FNA;=1.5 cm f/u in 1, 3, and 5 years; <1.5 cm no f/u or FNA. Recommendations: Continued ultrasound follow-up. Nodule 2: Location: Mid left lobe Size: 1.8 x 1.2 x 1.4 cm (previously 1.7 x 0.9 x 0.9 cm) Composition: Solid or almost completely solid (2 points). Echogenicity: Hypoechoic (2 points). Shape: Wider than tall (0 points). Margins: Smooth (0 points). Echogenic foci: Absent (0 points). Other: None. ACR TI-RADS Score: TR4 - Moderately suspicious (total 4-6 points). -- ACR recommendation:=1.5 cm FNA;=1 cm f/u in 1, 2, 3, and 5 years; <1 cm no f/u or FNA. Recommendations: Ultrasound-guided FNA suggested. Nodule 3: Location: Inferior right lobe Size: 2.5 x 1.7 x 1.7 cm (previously 2.1 x 1.3 x 1.3 cm) Composition: Mixed cystic and solid (1 point). Echogenicity: Hypoechoic (2 points). Shape: Wider than tall (0 points). Margins: Smooth (0 points). Echogenic foci: Macrocalcifications (1 point). Other: None. ACR TI-RADS Score: TR4 - Moderately suspicious (total 4-6 points). -- ACR recommendation:=1.5 cm FNA;=1 cm f/u in 1, 2, 3, and 5 years; <1 cm no f/u or FNA. Recommendations: Ultrasound-guided FNA suggested Nodule 4: Location: Mid left lobe Size: 1.1 x 1.0 x 1.0 cm (previously 1.1 x 1.1 x 1.0 cm) Composition: Solid or almost completely solid (2 points). Echogenicity: Hyperechoic (1 point). Shape: Wider than tall (0 points). Margins: Smooth (0 points). Echogenic foci: Absent (0 points). Other: None. ACR TI-RADS Score: TR3 - Mildly suspicious (total 3 points). -- ACR recommendation:=2.5 cm FNA;=1.5 cm f/u in 1, 3, and 5 years; <1.5 cm no f/u or FNA. Recommendations: None. Cervical lymph nodes: Normal. IMPRESSION: 1. Redemonstration of multiple bilateral thyroid nodules as described above. Ultrasound guided FNA suggested for the moderately suspicious nodules in the mid to inferior right lobe. REFERENCE: Beni MCADAMS et al. 2015 [place] [employer] Management Guidelines for Adult Patients with Thyroid Nodules and Differentiated Thyroid Cancer. Thyroid. 2016; 26(1):1-133. SL: [id number] 04/14/2018 [facility] Liver US STUDY: Liver US 04/14/2018 12:59 PM CDT Ordering Physician: Nery Salazar MD Patient Name: JAZ BERNARD MR: [id number] : 1960; Age: 58 years y/o Female Clinical Indication: - R74.8 Abnormal levels of other serum enzymes, E78.2 Mixed hyperlipidemia Comparison: None TECHNIQUE: Grayscale and limited color sonographic evaluation of the liver was performed with standard technique. FINDINGS: LIVER: The hepatic echotexture is diffusely increased and coarsened associated with peripheral ultrasound beam attenuation consistent with steatosis. No focal hepatic lesion is appreciated. BILE DUCTS: Mildly dilated common bile duct measuring 9.5 mm. GALLBLADDER: Cholecystectomy. PANCREAS: The visualized portions of the pancreas are normal. KIDNEY: The right renal size, shape, and echotexture are normal without nephrolithiasis, hydronephrosis, or focal lesion. Right kidney: 11.3 x 4.6 x 6.0 cm. AORTA AND INFERIOR VENA CAVA: The visualized portions are normal. ASCITES: No significant fluid accumulation. IMPRESSION: 1. Hepatic steatosis. 2. Cholecystectomy associated with a mildly dilated common bile duct likely physiological in nature related to reservoir effect. SL: [id number] [facility] contrast MRI EXAM: MRI LUMBAR SPINE WITHOUT CONTRAST DATE: 02/07/2018 8:21 AM CDT . ORDERING PHYSICIAN: Non Associated PhysicianMD CLINICAL INDICATION: - BENIGN NEOPLASM OF CEREBRAL MENINGES; TECHNIQUE: Multiplanar, multisequence MRI lumbar spine without IV contrast COMPARISON: 06/13/2015 lumbar MRI FINDINGS: For the purposes of enumeration, the lowest well formed intervertebral disc was counted as L5-S1 on this exam. INTRASPINAL CONTENTS/CONUS: The conus terminates at L1-L2. No definite dural based lesion. VERTEBRAE: The vertebrae are normal in height. The lordosis is straightened. No focal suspicious bone marrow signal abnormality. PARASPINAL SOFT TISSUES: No edema or definite masses. No aortic aneurysm. DISC SPACES, SPINAL CANAL, AND NEURAL FORAMINA: T12-L1. Intervertebral disc height and signal are maintained. Posterior elements are normal. There is no stenosis. L1-L2. Intervertebral disc height and signal are maintained. Posterior elements are normal. There is no stenosis. L2-L3. Loss of disc height with shallow diffuse bulge and superimposed 3 mm right foraminal zone disc protrusion. Facets are unremarkable. Central canal measures 14 mm straight lateral recesses are patent. Foraminal disc protrusion narrows right neural foramen but does not contact the exiting L2 nerve root. L3-L4. Dehydrated disc with diffuse bulge. Facets are mildly enlarged. Central canal measures 11 mm straight lateral recesses are patent. Foraminal disc bulge extends minimally into the neural foramina but does not contact the exiting L3 nerve root. L4-L5. Loss of disc height with diffuse bulge with annular fissuring. Mild facet hypertrophy with synovial inflammation. Central canal measures 13 mm the lateral recesses are patent. Disc and facets mildly narrow the neural foramina but does not contact the exiting L4 nerve roots. L5-S1. Dehydrated disc with diffuse bulge an annular fissuring. Facets are unremarkable. Central canal measures 15 mm lateral recesses are patent. Foraminal disc bulge mildly narrows the neural foramina but does not contact the exiting L5 nerve roots. IMPRESSION: 1. No mass lesion identified 2. Mild lumbar disc and facet degeneration without central canal stenosis without cauda equina mass effect 3. Please see additional comments above 02/07/2018 [facility] Spine cervical w/wo contrast MRI EXAM: MRI CERVICAL SPINE WITH AND WITHOUT CONTRAST DATE: 02/07/2018 8:19 AM CDT ORDERING PHYSICIAN: Non Associated Physician, CLINICAL INDICATION: - MENINGIOMA; TECHNIQUE: Multiplanar, multisequence MRI cervical spine performed both prior to and after uncomplicated IV administration of 20 cc Dotarem. COMPARISON: 03/05/2015 cervical MRI FINDINGS: VISUALIZED INTRACRANIAL CONTENTS: Unremarkable. CRANIOCERVICAL JUNCTION: The cerebellar tonsils are in normal position. SPINAL CORD : No definite cord signal abnormality. No definite dural based lesion. VERTEBRAE: The vertebrae are normal in height and alignment. No focal suspicious bone marrow signal abnormality. PARASPINAL SOFT TISSUES: No edema. Thyroid nodules measuring up to 14 mm. ENHANCEMENT: There is no abnormal enhancement. DISC LEVELS, SPINAL CANAL, NEURAL FORAMINA: Craniocervical junction: No stenosis C1-C2: No subluxation, ligamentous pannus formation, or stenosis C2-C3: Intervertebral disc height and signal are maintained. Posterior elements are normal. There is no stenosis. C3-C4: Disc with small diffuse bulge. Facets and uncinate processes are unremarkable. Central canal measures 12 mm. There is mild narrowing of the left neural foramen. C4-C5: Dehydrated disc with shallow diffuse disc bulge. Facets and uncinate process are unremarkable. Central canal measures 12 mm. Neural foramina are patent. C5-C6: ACDF without hardware signal abnormality. There is a 3 mm right-sided uncinate osteophyte. Facets are unremarkable. Central canal measures 11 mm. There is mild narrowing of the right neural foramen. C6-C7: Dehydrated disc with diffuse bulge and annular fissuring. Facets and uncinate process are unremarkable. Central canal measures 12 mm. Neural foramina are patent. C7-T1: Intervertebral disc height and signal are maintained. Posterior elements are normal. There is no stenosis. IMPRESSION: 1. No substantial reduction the AP diameter of the cervical spinal canal. There is no mass effect on spinal cord 2. Right C5-6 facet hypertrophy causes mild narrowing of the right neural foramen 02/07/2018 [facility] Brain w/wo contrast MRI Patient Name: JAZ BERNARD : 1960; Age: 57 years y/o Female MR: [id number] Study: Brain w/wo contrast MRI 02/07/2018 8:17 AM CDT Ordering Physician: Non Associated Physician, Clinical Indication: - BENIGN NEOPLASM OF CEREBRAL MENINGES; Comparison: June 28, 2016 TECHNIQUE : Multiplanar imaging of the brain was obtained both prior to and after uncomplicated IV administration of 20 cc Dotarem FINDINGS: Metallic artifact from dental amalgam limits evaluation of the face and posterior fossa/skull base, as well as the diffusion/gradient echo images. BRAIN PARENCHYMA: Brain volumes are within normal limits for age. No evidence of mesial temporal sclerosis or cortical migrational abnormality. Left hippocampal small sulcal remnant again noted. There are grossly stable mild punctate T2 hyperintensities involving the cerebral white matter (probably bifrontal) , basal ganglia, and renard without enhancement, blooming artifact nor diffusion restriction. These are nonspecific but likely represent small vessel ischemic change and chronic lacunar infarctions. No restricted diffusion is identified. There is no mass effect or midline shift. There is no extra-axial fluid collection or intraparenchymal hemorrhage. There is no abnormal enhancement. CEREBELLOPONTINE REGIONS AND SKULL BASE: Limited. The cerebellopontine angles appear unremarkable. No skull base abnormality is seen. VENTRICLES/SULCI/CISTERNS: The ventricles are normal in size and configuration. The basal cisterns are patent. VISUALIZED VESSELS: Major intracranial flow voids are preserved. ORBITS, VISUALIZED PARANASAL SINUSES AND MASTOIDS: Paranasal sinuses are clear. The mastoid air cells are clear. No orbital pathology is seen. IMPRESSION: 1. Grossly stable mild probable small vessel ischemic change/chronic lacunar infarctions. Given the bifrontal predominance, some of this could also be sequelae of migraine headaches. 2. No definite seizure focus or meningeal mass is noted. 02/07/2018 [facility] [place] contrast CT EXAM: CT BRAIN WITHOUT CONTRAST DATE: 11/05/2016 9:36 PM CDT INDICATION: Headache with Dizziness and Giddiness. COMPARISON: 01/31/2016. TECHNIQUE: CT images were obtained from the foramen magnum to the vertex without intravenous contrast on a multidetector CT. Coronal and sagittal reconstructions were also provided for review. CT radiation dose DLP: 1046.69 mGy-cm FINDINGS: No acute intracranial hemorrhage, midline shift, or mass effect is identified. The lin-white matter differentiation is preserved. The ventricles and sulci are within normal limits, without evidence for hydrocephalus. The orbits, paranasal sinuses, and mastoid air cells are unremarkable. The calvarium and skull base are intact. There is atherosclerotic calcification of the vertebral arteries. IMPRESSION: No acute intracranial abnormality. SL: [id number] 11/05/2016 [facility] contrast MRI EXAM: MRI BRAIN WITHOUT CONTRAST DATE: 06/28/2016 11:43 AM INDICATION: Seizures COMPARISON: MRI brain 03/05/2015 TECHNIQUE: Multiplanar, multisequence non-contrast MRI images of the brain per epilepsy protocol, performed on a 3 Deisi magnet. IV contrast: None FINDINGS: Susceptibility artifact emanating from the oral cavity degrades imaging through the face. Brain volume is normal. Normal appearance of the cortex and lin-white matter differentiation. Numerous tiny foci of T2 hyperintensity are present in the subcortical and deep white matter of the cerebral hemispheres, with a frontal lobe predominance. Additionally, small foci along the dorsal lateral margin of the right lentiform nucleus. No hydrocephalus, midline shift or herniation, or abnormal extra-axial collection. No evidence of intracranial hemorrhage. No hippocampal sclerosis. Tiny left hippocampal sulcal remnant cysts. Mild right maxillary sinus mucosal thickening. The larger intracranial vascular flow voids are maintained. A few subcutaneous nodules are again demonstrated, present since 2012. IMPRESSION: Tiny foci of nonspecific white matter T2 hyperintensity with a frontal lobe predominance are again demonstrated. No significant new abnormality. 06/28/2016 [facility] Abdomen 2 views DX ABDOMEN, 2 VIEWS HISTORY: Lap band, evaluate for obstruction. COMPARISON: CT abdomen/pelvis dated 01/31/2016 and abdominal radiography dated 11/27/2015 FINDINGS: Frontal views of the abdomen were obtained both before and after the administration of oral contrast. Lap band is again seen to reside more distally than normal with a somewhat horizontal orientation concerning for slippage. Additionally, the portion of the stomach proximal to the lap band appears larger than expected. Oral contrast passes readily through the lap band into the stomach without evidence of obstruction. No extravasation of contrast is seen. SL: [id number] 01/31/2016 [facility] Brain wo contrast CT Patient Name: JAZ BERNARD : 1960; Age: 55 years y/o Female MR: [id number] Study: Brain wo contrast CT 01/31/2016 6:40 PM CDT Clinical Indication: Headache with Trauma; Comparison: 11/09/2012 TECHNIQUE: CT images were obtained from the foramen magnum to the vertex without the use of intravenous contrast on a multidetector CT. Coronal and sagittal reconstructions were obtained. FINDINGS: BRAIN PARENCHYMA: Bilateral vertebral artery calcification. No evidence for subarachnoid, intraparenchymal or intraventricular hemorrhage. No significant extra-axial fluid collection, mass effect or shift. No evidence for an acute infarction. No mass lesions identified about the brain. VENTRICLES: Ventricles and sulci are within normal limits for the patient's age. ORBITS, MASTOIDS AND PARANASAL SINUSES: The visualized orbits and paranasal sinuses are unremarkable. The mastoid air cells are clear. SKULL: There are no osseous abnormalities. If there is further concern for intracranial pathology or acute stroke, MRI of the brain may be performed for complete assessment. IMPRESSION: 1. Bilateral vertebral artery calcification. 2. Otherwise unremarkable head CT without contrast. SL: CSODEELDER 01/31/2016 [facility] ED Abdomen/Pelvis IV contrast only CT Patient Name: JAZ BERNARD : 1960; Age: 55 years y/o Female MR: [id number] Study: ED Abdomen/Pelvis IV contrast only CT 01/31/2016 6:39 PM CDT Ordering Physician: Ashlyn Engle Clinical Indication: Abdominal pain, acute; lower abd pain w/ hx of diverticulitis Comparison: 11/27/2015 TECHNIQUE: Helical imaging was performed after intravenous contrast administration from the diaphragm through the symphysis with multiplanar reformations obtained. FINDINGS: LOWER CHEST: The lung bases are clear without significant pleural effusion bilaterally. Coronary artery calcification. SOLID ORGANS: Fatty change is seen throughout the liver. No focal liver or splenic abnormality. The adrenals are unremarkable. Small low-density lesion to the medial left mid kidney is similar to prior study. This is too small to accurately characterize but would statistically represent a cyst. Kidneys are otherwise unremarkable bilaterally. The pancreas is unremarkable. Dilatation of the common bile duct is mildly more prominent than the prior study. No obstructing lesion is identified. No pelvocaliectasis or ureterectasis bilaterally. RETROPERITONEUM: No abdominal or pelvic adenopathy. Left retroaortic renal vein. Abdominal aortic and right iliac artery calcification. PELVIS: Patient is status post hysterectomy. Minimal free fluid is seen in the left pelvis. The bladder is normal. BOWEL: Colonic diverticulosis. The lap band is about the fundal region of the stomach with a prominent pouch to the cardia of the stomach. This is similar to prior study but has a lower than expected position. There may be component of slippage of the lap band. No other bowel abnormality identified in the abdomen or pelvis. The appendix is not identified. PERITONEUM: No free intraperitoneal air. MUSCULOSKELETAL: No significant osseous abnormality. IMPRESSION: 1. Findings suggestive of slippage of the lap band similar to prior study. See above discussion. 2. Vascular calcification in the lower chest, abdomen and pelvis as above. 3. Fatty change about the liver. 4. Probable small left renal cyst. 5. Dilatation of common bile duct mildly more prominent than the prior study. No obstructing lesion identified. 6. Left retroaortic renal vein. 7. Status post hysterectomy. 8. Minimal free fluid in the left pelvis. 9. Colonic diverticulosis. SL: CODEY 01/31/2016 [facility] Abdomen AP DX Study: Abdomen, single view Clinical Indication: Diffuse abdominal pain Comparison: CT abdomen and pelvis from 11/26/2015 FINDINGS: Single upright view of the abdomen shows a nonobstructive bowel gas pattern. Changes of cholecystectomy and lap band procedure are seen. No intraperitoneal free air is seen. Osseous structures are unremarkable. IMPRESSION: No intraperitoneal free air. SL: [id number] 11/27/2015 [facility] ED Abdomen/Pelvis IV contrast only CT Study: ED Abdomen/Pelvis IV contrast only CT Clinical Indication: Left lower quadrant pain Comparison: CT abdomen and pelvis from 11/26/2015 TECHNIQUE: Multiple axial CT images of the abdomen and pelvis were acquired following the administration of intravenous contrast. Sagittal and coronal reformatted images were performed. CT Radiation Dose DLP 2200.24 mGy-cm FINDINGS: The visualized lung bases are clear bilaterally. Hepatomegaly with hepatic steatosis is again seen. No intrahepatic or extra hepatic biliary duct dilatation is seen. Left renal hypodense cysts are stable. Pancreas, spleen, adrenal glands, and right kidney are unremarkable. Urinary bladder is mildly distended. Patient is status post hysterectomy. Multiple colonic diverticula are present. Circumferential wall thickening with overlying inflammatory fat stranding of the sigmoid colon is present and unchanged. Stable postoperative changes of lap band procedure are seen. No intraperitoneal free air, free fluid, or pathologic adenopathy is seen. No organized fluid collection to suggest abscess is seen. The superficial soft tissues are unremarkable. No suspicious osseous lesions are seen. IMPRESSION: 1. Stable exam of the abdomen and pelvis with findings compatible with uncomplicated sigmoid diverticulitis. No perforation or abscess is seen. 2. Hepatomegaly with hepatic steatosis. SL: [id number] 11/27/2015 [facility] Abdomen/Pelvis IV contrast only CT Patient Name: JAZ BERNARD : 1960; Age: 55 years y/o Female MR: [id number] Study: ED Abdomen/Pelvis IV contrast only CT 11/26/2015 1:45 AM CDT Ordering Physician: Kady Berg DO Clinical Indication: Abdominal pain, acute; LLQ pain with Hx of diverticulitis Comparison: CT abdomen pelvis 10/01/2015. Left lower abdominal pain since this morning with worsening of pain. History of diverticulitis. TECHNIQUE: Helical imaging was performed diaphragm through the symphysis with multiplanar reformations obtained. FINDINGS: LOWER CHEST: The clinical atelectasis No pleural or pericardial effusion is identified. SOLID ORGANS: Liver is diffusely fatty an enlarged. The gallbladder is surgically absent. The spleen, pancreas, and bilateral adrenal glands within normal limits. Left renal inferior pole small hypodense cyst is again seen. Right kidney is within normal limits. There is no hydroureteronephrosis. BOWEL: Large and small bowel is normal in caliber. Short segment sigmoid colon wall thickening is seen. Scattered diverticula are seen throughout the colon. No extraluminal air or abscess are seen. Gastric band is unchanged in position compared to prior examination. No surrounding inflammation or fluid is seen. PERITONEUM: No intraperitoneal free air is seen. No intraperitoneal free fluid is identified. RETROPERITONEUM: No adenopathy. No aortic aneurysm is seen. PELVIS: The urinary bladder is within normal limits. Uterus is absent. MUSCULOSKELETAL: No osseous destructive lesions are seen. IMPRESSION: 1. Acute sigmoid colon diverticulitis.. No abscess or evidence of perforation. 2. Hepatic steatosis with hepatomegaly. 3. Status post cholecystectomy. 4. Gastric band is unchanged in position compared to prior examination. SL: [id number] 11/26/2015 [facility] Abdomen/Pelvis w IV contrast CT Patient Name: JAZ BERNARD : 1960; Age: 55 years y/o Female MR: [id number] Study: Abdomen/Pelvis w IV contrast CT 09/30/2015 11:24 PM CDT Ordering Physician: Hernan Rios MD Comparison: 11/22/2013 Clinical Indication: Generalized abdominal pain; slipped lap band on X ray , evaluate for complications Multiple computerized axial tomograms of the abdomen and pelvis were obtained after administration of IV contrast and without oral contrast. The lack of oral contrast limits diagnostic detail at the enteric tract and mesentery. 2-D sagittal and coronal reformation reconstruction images were obtained. Lung bases clear. Port, tubing and inflatable collar at the proximal stomach are noted related to lap banding procedure. Slight distal positioning of the lap band collar is noted at the proximal stomach unchanged from the previous exam. Mild retained gastric contents at the gastric lumen proximal to the lap band collar. Diffuse fatty infiltration of the liver. Surgical clips EG junction and proximal stomach. Surgical clips gallbladder fossa status post cholecystectomy. 12 mm cyst medial mid left kidney. Liver, kidneys, spleen, pancreas and adrenal glands have an otherwise normal CT appearance. No adenopathy, abdominal mass or free fluid. No pneumoperitoneum. The uterus is surgically absent. Multiple venous vascular calcifications are noted at the pelvis. Diverticula are present at the redundant sigmoid colon. Surgical clip at the left lateral pelvic sidewall. The appendix is not visualized. No right lower quadrant inflammatory changes. A few diverticula are noted at the right colon. Urinary bladder unremarkable. There is no pelvic mass, adenopathy or free fluid noted. IMPRESSION: 1. The position of the lap band color is unchanged from the previous exam, 11/22/2013. 2. Status post hysterectomy and cholecystectomy. 3. No acute abnormality at the abdomen or pelvis. 4. Diffuse fatty infiltration of the liver. 5. Left renal cyst. SL: [id number] 10/01/2015 [facility] Chest 2 views DX EXAM: Chest 2 views DX DATE: 09/30/2015 6:44 PM CDT INDICATION: Chest pain cough and congestion. COMPARISON: 11/09/2012 IMPRESSION: Stable cardiac silhouette and mediastinum. No focal consolidation, significant pleural effusion or pneumothorax. Postoperative cervical spinal fusion is present. Surgical clips are present within the right upper quadrant. Postoperative lap band procedure is present with flattening lap band ring suggesting migration/slippage. Please correlate clinically. SL: [id number] 09/30/2015 [facility] Spine lumbar wo contrast MRI MRI of the lumbar spine without contrast 06/13/2015. CLINICAL HISTORY: M [age], low back pain reading to right leg, radiculopathy, lumbar region. FINDINGS: Five nonrib-bearing lumbar type vertebral bodies will be assumed. Conus tip located at L1-L2 level and is normal-appearing without intradural extra medullary abnormality. Mild disc desiccation is seen involving L3-L4 through L5-S1 discs with multilevel minimal spondylosis. Mild curvature lumbar spine convex to the right No vertebral body collapse is identified. There is a moderate sized area of fatty infiltration or hemangioma involving L1 with a smaller hemangioma or area fatty infiltration involving L3. No paraspinal soft tissue mass is seen. L1-L2 shows an asymmetric 2-3 mm right foraminal disc protrusion contacting exiting right L1 root. No central canal or left foraminal stenosis seen. L2-L3 shows 2 mm bilateral foraminal disc bulge is not affecting exiting L2 roots. Mild facet arthrosis without central canal stenosis. L3-L4 shows a 2 mm posterior disc bulge/protrusion indenting ventral thecal sac abutting traversing L4 roots. There is only mild narrowing subarachnoid space. Small foraminal disc osteophyte complexes present without significant encroachment on L3 roots. L4-L5 shows a minimal 1-2 mm posterior broad-based disc bulge with a 3 mm right foraminal disc osteophyte complex with annular tear. This results in mild foraminal narrowing without gross mass effect on right L4 root. No significant central canal or left foraminal narrowing. L5-S1 shows a minimal 1-2 mm posterior broad-based disc bulge slight indenting ventral thecal sac. Mild facet arthrosis without central canal or foraminal stenosis. IMPRESSION: 1. Mild disc desiccation L3-L4 through L5-S1 intervertebral disc. 2. L4-L5 shows a 3 mm asymmetric right foraminal disc osteophyte complex with annular tear however this does not exert mass effect on right L4 root. 3. L3-L4 shows a 2 mm posterior broad-based disc bulge indenting ventral thecal sac abutting L4 roots with only mild central canal narrowing. 4. Remainders described above. 06/13/2015 [facility] Brain w/wo contrast MRI MRI of the brain pre- and postcontrast 03/05/2015. CLINICAL HISTORY: 722.4, 722.91, occipital headaches radiating to shoulders with abnormal gait and history of syringohydromyelia. FINDINGS: Note is made of minimal to mild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
--- OUTSIDE RECORDS SUMMARY | 2019-01-02 13:29 | XMS REPORT | Summary of Care ---
Author Author [facility] Organization [facility] Address Unknown Phone Unavailable Encounter HQ [place](FIN) [id number] Date(s): 02/07/18 - 02/07/18 [id number] [place] [address]- Encounter Diagnosis Benign neoplasm of cerebral meninges (Final) - 02/17/18 Essential (primary) hypertension (Final) - Gastro-esophageal reflux disease without esophagitis (Final) - Discharge Disposition: Home or Self Care Attending Physician: Physician, Non Associated MD Referring Physician: Sugar Starr MD Vital Signs 1 2 3 Most recent to oldest [Reference Range]: 175.26 cm (01/27/18 2:35 PM) Height 140/75 mmHg (02/07/18 11:55 AM) 145/74 mmHg *HI* (02/07/18 11:41 AM) 140/65 mmHg (02/07/18 11:25 AM) Blood Pressure [90-140/60-90 mmHg] 21 BRMIN *HI* (02/07/18 12:08 PM) 21 BRMIN *HI* (02/07/18 11:55 AM) 23 BRMIN *HI* (02/07/18 11:41 AM) Respiratory Rate [14-20 BRMIN] 74 bpm (02/07/18 8:07 AM) Peripheral Pulse Rate [60-100 bpm] 90 kg (01/27/18 2:35 PM) Weight 29.3 m2 (01/27/18 2:35 PM) Body Mass Index Problem List Condition Effective Dates Status Health Status Informant Anxiety disorder1, 2 Active Benign Active hypertension3, 4 Cervical 10/15/13 Active spondylosis5, 6 Cervical Active spondylosis(Confirme d) Cobalamin Active deficiency(Confirmed ) Cobalamin 4/14/14 Active deficiency7, 8 Cyst(Confirmed)9 Resolved Diabetes Resolved mellitus(Confirmed) Diabetic - Active cooperative patient(Confirmed) Diverticulitis small Active intestine(Confirmed) Epilepsy(Confirmed) Active H/O MTHFR Resolved mutation(Confirmed) [id number], 11 10/22/13 Active Hypertension(Confirm Resolved ed) Hypertension(Confirm Resolved ed) 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 2Data migrated from [employer] on 12/03/14. 3Data migrated from [employer] on 12/03/14. 4Data migrated from [employer] on 12/03/14. 5Data migrated from [employer] on 12/03/14. 6Data migrated from [employer] on 12/03/14. 7Data migrated from [employer] on 12/03/14. 8Data migrated from [employer] on 12/03/14. 9CYST on / near cervical spine 10Data migrated from [employer] on 12/03/14. 11Data migrated from [employer] on 12/03/14. 12Data migrated from [employer] on 12/03/14. 13Data migrated from [employer] on 12/03/14. 14Data migrated from [employer] on 12/03/14. 15Data migrated from [employer] on 12/03/14. 16Positive MRSA in urine on 11/05/2010. 17Problem added by Discern Expert. 18Data migrated from [employer] on 12/03/14. 19Data migrated from [employer] on 12/03/14. 20Data migrated from [employer] on 12/03/14. 21Data migrated from [employer] on 6/2/15. 22Data migrated from [employer] on 12/03/14. 23Data migrated from [employer] on 12/03/14. 24Data migrated from [employer] on 12/03/14. 25Data migrated from [employer] on 12/03/14. Allergies, Adverse Reactions, Alerts Substance Reaction Severity Status sulfa drugs1 rash Active erythromycin stomach upset Active azithromycin2 stomach upset Active Cipro toxicity Active codeine sulfate vomting Active 1[facility] on 01/30/15. Originally documented as SULFA. Rash 2Data migrated from [employer] on 10/29/14. Originally documented as ZITHROMAX. rash Medications amitriptyline 25 mg oral tablet 25 mg=1 tab, PO, Bedtime, # 30 tab, 1 Refill(s) Start Date: 01/27/18 Stop Date: 02/01/18 Status: Discontinued aspirin 81 mg tablet, enteric coated 81 mg=1 tab, PO, Daily, # 90 tab, 3 Refill(s) Start Date: 01/27/18 Status: Ordered Botox 0 Refill(s) Start Date: 01/27/18 Status: Ordered CoQ10 300 mg, PO, Daily, 0 Refill(s) Start Date: 01/27/18 Status: Ordered Dilantin 100 mg oral capsule, extended release 300 mg=3 cap, PO, Bedtime, # 270 cap, 0 Refill(s) Start Date: 01/27/18 Stop Date: 02/01/18 Status: Discontinued Farxiga 10 mg oral tablet 10 mg=1 tab, PO, Daily, 0 Refill(s) Start Date: 01/27/18 Status: Ordered Flexeril 5 mg oral tablet 5 mg=1 tab, PO, TID, # 30 tab, 0 Refill(s) Start Date: 01/27/18 Stop Date: 02/01/18 Status: Discontinued folic acid Daily, 0 Refill(s) Start Date: 01/27/18 Status: Ordered Januvia 100 mg oral tablet 100 mg=1 tab, PO, Daily, # 30 tab, 0 Refill(s) Start Date: 01/27/18 Stop Date: 02/01/18 Status: Discontinued levETIRAcetam 250 mg oral tablet 250 mg=1 tab, PO, BID, # 60 tab, 2 Refill(s) Start Date: 01/27/18 Stop Date: 02/01/18 Status: Discontinued LORazepam 2 mg oral tablet 2 mg=1 tab, PO, Bedtime, # 30 tab, 0 Refill(s) Start Date: 01/27/18 Stop Date: 02/26/18 Status: Ordered Sodium Chloride 0.9% IV 1,000 mL 1,000 mL, Rate: 25 ml/hr, Infuse over: 40 hr, Route: IV, Dosing Weight 90 kg, To renee Volume: 1,000, Start date: 02/07/18 7:54:00 CDT, Duration: 30 day, Stop date : 03/09/18 7:53:00 CDT, 2.11, m2 Start Date: 02/07/18 Stop Date: 02/07/18 Status: Discontinued Xigduo XR 5 mg-500 mg oral tablet, extended release 1 tab, PO, QAM, 0 Refill(s) Start Date: 01/27/18 Stop Date: 02/01/18 Status: Discontinued Results ELECTROLYTES Most recent to 1 oldest [Reference Range]: POC Sodium [135-145 139 mEq/L mEq/L] (02/07/18 8:33 AM) POC Potassium 4.2 mEq/L [3.5-5.1 mEq/L] (02/07/18 8:33 AM) CHEM PANEL Most recent to 1 oldest [Reference Range]: Creatinine Lvl 0.76 mg/dL [0.50-1.40 mg/dL] (02/07/18 8:34 AM) eGFR 88 mL/min/1.73m2 1 *NA* (02/07/18 8:34 AM) BUN [7-22 mg/dL] 12 mg/dL (02/07/18 8:34 AM) POC Glucose [70-99 140 mg/dL mg/dL] *HI* (02/07/18 8:33 AM) 1Result Comment: The eGFR is calculated using the [...] from the National Kidney Disease Education Program ( NKDEP) which additionally recommends that when the eGFR is used in patients with extremes of body mass index for purposes of drug dosing, the eGFR should be mul tiplied by the estimated BMI. HEMATOLOGY Most recent to 1 oldest [Reference Range]: POC Hemoglobin 13.3 g/dL [12.0-16.0 g/dL] (02/07/18 8:33 AM) POC Hematocrit 39.0 % [36.0-48.0 %] (02/07/18 8:33 AM) Immunizations Given and Recorded Vaccine Date Status Refusal Reason pneumococcal 23-valent vaccine 06/29/16 Given Procedures Procedure Date Related Diagnosis Body Site Status Breast lumpectomy Completed Cervical spinal fusion Completed Cholecystectomy Completed Hysterectomy Completed Knee joint operation Completed Laparoscopic adjustable gastric banding Completed Procedure1 Completed 1right pinky finger surgey x 7 Social History Social History Type Response Alcohol Current, Type Wine. Frequency: 1-2 times per week. Smoking Status Never smoker; Exposure to Tobacco Smoke None; Cigarette Smoking Last 365 Days Yes; Reg Smoking Cessation Counseling Yes1 entered on: 02/01/18 1occasional cigarettes Assessment and Plan No data available for this section
--- OUTSIDE RECORDS SUMMARY | 2019-01-02 13:29 | XMS REPORT | Summary of Care ---
Author Author [facility] Organization [facility] Address Unknown Phone Unavailable Encounter [facility] [place]) [id number] Date(s): 11/05/16 - 11/06/16 [facility] [address] [place] [address]- [phone] Discharge Diagnosis: Seizure disorder Discharge Disposition: Home or Self Care Attending Physician: Eli Diaz MD Vital Signs Most recent to 1 2 oldest [Reference Range]: Temperature Oral 98 DegF [96.4-99.1 DegF] (11/05/16 8:37 PM) Blood Pressure 113/65 mmHg 160/87 mmHg [90-140/60-90 mmHg] (11/06/16 12:02 AM) *HI* (11/05/16 8:37 PM) Respiratory Rate 18 BRMIN 20 BRMIN [14-20 BRMIN] (11/06/16 12:02 AM) (11/05/16 8:37 PM) Peripheral Pulse 67 bpm 85 bpm Rate [60-100 bpm] (11/06/16 12:02 AM) (11/05/16 8:37 PM) Weight 81.818 kg (11/05/16 8:37 PM) Problem List Condition Effective Dates Status Health Status Informant Anxiety disorder1, 2 Active Benign Active hypertension3, 4 Cervical 10/15/13 Active spondylosis5, 6 Cervical Active spondylosis(Confirme d) Cobalamin Active deficiency(Confirmed ) Cobalamin 10/15/13 Active deficiency7, 8 Cyst(Confirmed)9 Resolved Diabetes Resolved mellitus(Confirmed) Diabetic - Active cooperative patient(Confirmed) Diverticulitis small Active intestine(Confirmed) Epilepsy(Confirmed) Active Hyperlipidemia(Confi Active rmed) Ylltqjsfmcgjyp57, 11 10/22/13 Active Hypertension(Confirm Resolved ed) Hypertension(Confirm Resolved ed) Megaloblastic anemia Active due to cobalamin deficiency(Confirmed ) Megaloblastic anemia 10/15/13 Active due to folate geibhtacbk30, 13 Meniscus Active tear(Confirmed) Ivugvaen04, 15 10/15/13 Active Migraines(Confirmed) Active Positive 11/05/10 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 21Data migrated from [employer] on 12/03/14. 22Data migrated from [employer] on 12/03/14. 23Data migrated from [employer] on 12/03/14. 24Data migrated from [employer] on 12/03/14. 25Data migrated from [employer] on 12/03/14. Allergies, Adverse Reactions, Alerts Substance Reaction Severity Status azithromycin1 Active codeine sulfate Active erythromycin Active sulfa drugs2 Active 1Data migrated from [facility] on 10/29/14. Originally documented as ZITHROMAX. rash 2Data migrated from [facility] on 01/30/15. Originally documented as SULFA. Rash Medications Dilaudid 1 mg, 1 mL, Route: IVP, Drug form: INJ, ONCE, Dosing Weight 81.818, kg, Priority : STAT, Start date: 11/05/16 22:45:00 CDT, Stop date: 11/05/16 22:45:00 CDT Notes: Same as: Dilaudid Start Date: 11/05/16 Stop Date: 11/05/16 Status: Completed Keppra + sodium chloride 0.9% INJ 100 mL 1,000 mg, Route: IV, ONCE, Dosing Weight 81.818, kg, Start date: 11/05/16 22:45: 00 CDT, Stop date: 11/05/16 22:45:00 CDT Notes: Same as KeppraMix with 100 mL NS, LR or D5W MEDICATION WASTE Prod uct Size: 500 mgProduct Wasted: ___ mg Start Date: 11/05/16 Stop Date: 11/05/16 Status: Completed Ultram 50 mg oral tablet 50 mg=1 tab, PO, Q4H, PRN pain, X 3 day, # 20 tab, 0 Refill(s) Start Date: 11/05/16 Stop Date: 11/08/16 Status: Ordered Valium 5 mg, 1 tab, Route: PO, Drug form: TAB, ONCE, Dosing Weight 81.818, kg, Priority : STAT, Start date: 11/05/16 22:45:00 CDT, Stop date: 11/05/16 22:45:00 CDT Notes: (Same as: Valium) Start Date: 11/05/16 Stop Date: 11/05/16 Status: Completed Valium 5 mg oral tablet 5 mg=1 tab, PO, Daily, PRN Anxiety, X 7 day, # 7 tab, 0 Refill(s) Start Date: 11/05/16 Stop Date: 11/12/16 Status: Ordered Zofran 4 mg, 2 mL, Route: IVP, Drug form: INJ, ONCE, Dosing Weight 81.818, kg, Priority : STAT, Start date: 11/05/16 22:45:00 CDT, Stop date: 11/05/16 22:45:00 CDT Notes: (Same as: Bandar) MEDICATION WASTE Product Size: 4 mgProduct Was jocelynn: ___ mg Start Date: 11/05/16 Stop Date: 11/05/16 Status: Completed Results ELECTROLYTES Most recent to 1 oldest [Reference Range]: Sodium Lvl [135-145 137 mEq/L mEq/L] (11/05/16 10:00 PM) Potassium Lvl 3.7 mEq/L [3.5-5.1 mEq/L] (11/05/16 10:00 PM) Chloride Lvl [95-109 103 mEq/L mEq/L] (11/05/16 10:00 PM) CO2 [24-32 mEq/L] 26 mEq/L (11/05/16 10:00 PM) AGAP [10.0-20.0 11.7 mEq/L mEq/L] (11/05/16 10:00 PM) CHEM PANEL Most recent to 1 oldest [Reference Range]: Creatinine Lvl 0.74 mg/dL [0.50-1.40 mg/dL] (11/05/16 10:00 PM) eGFR 93 mL/min/1.73m2 1 *NA* (11/05/16 10:00 PM) BUN [7-22 mg/dL] 11 mg/dL (11/05/16 10:00 PM) B/C Ratio [6-25] 15 (11/05/16 10:00 PM) Glucose Lvl [70-99 208 mg/dL mg/dL] *HI* (11/05/16 10:00 PM) Total Protein 7.7 g/dL [6.4-8.4 g/dL] (11/05/16 10:00 PM) Albumin Lvl [3.5-5.0 4.2 g/dL g/dL] (11/05/16 10:00 PM) Globulin [2.7-4.2 3.5 g/dL g/dL] (11/05/16 10:00 PM) A/G Ratio [0.7-1.6] 1.2 (11/05/16 10:00 PM) Calcium Lvl 9.0 mg/dL [8.5-10.5 mg/dL] (11/05/16 10:00 PM) ALT [0-65 unit/L] 60 unit/L (11/05/16 10:00 PM) AST [0-37 unit/L] 31 unit/L (11/05/16 10:00 PM) Alk Phos [39-136 84 unit/L unit/L] (11/05/16 10:00 PM) Bili Total [0.2-1.3 0.5 mg/dL mg/dL] (11/05/16 10:00 PM) Lipase Lvl [73-393 182 unit/L unit/L] (11/05/16 10:00 PM) 1Result Comment: The eGFR is calculated using [...] be mul tiplied by the estimated BMI. URINE AND STOOL Most recent to 1 oldest [Reference Range]: UA Turbidity [Clear] Clear (11/05/16 10:34 PM) UA Color [Yellow] Yellow *NA* (11/05/16 10:34 PM) UA pH [5.0-8.0] 6.0 (11/05/16 10:34 PM) UA Spec Grav <=1.005 [<=1.030] *NA* (11/05/16 10:34 PM) UA Glucose [Negative 100 mg/dL mg/dL] *ABN* (11/05/16 10:34 PM) UA Blood [Negative] Negative (11/05/16 10:34 PM) UA Ketones Negative [Negative] *NA* (11/05/16 10:34 PM) UA Protein Negative [Negative] (11/05/16 10:34 PM) UA Urobilinogen 0.2 EU/dL [0.1-1.0 EU/dL] (11/05/16 10:34 PM) UA Bili [Negative] Negative *NA* (11/05/16 10:34 PM) UA Leuk Est Negative [Negative] (11/05/16 10:34 PM) UA Nitrite Negative [Negative] (11/05/16 10:34 PM) UA WBC [None Seen 0-2 /HPF /HPF] (11/05/16 10:34 PM) UA RBC [0-2] None Seen (11/05/16 10:34 PM) UA Bacteria [None Occasional /HPF Seen /HPF] (11/05/16 10:34 PM) UA Sq Epi [Few /LPF] Occasional /LPF (11/05/16 10:34 PM) HEMATOLOGY Most recent to 1 oldest [Reference Range]: WBC [3.7-10.4 K/CMM] 11.6 K/CMM *HI* (11/05/16 10:00 PM) RBC [4.20-5.40 5.11 M/CMM M/CMM] (11/05/16 10:00 PM) Hgb [12.0-16.0 g/dL] 13.9 g/dL (11/05/16 10:00 PM) Hct [36.0-48.0 %] 41.5 % (11/05/16 10:00 PM) MCV [80.0-98.0 fL] 81.2 fL (11/05/16 10:00 PM) MCH [27.0-31.0 pg] 27.3 pg (11/05/16 10:00 PM) MCHC [32.0-36.0 33.6 g/dL g/dL] (11/05/16 10:00 PM) RDW [11.5-14.5 %] 14.1 % (11/05/16 10:00 PM) Platelet [133-450 260 K/CMM K/CMM] (11/05/16 10:00 PM) MPV [7.4-10.4 fL] 7.7 fL (11/05/16 10:00 PM) Segs [45.0-75.0 %] 54.2 % (11/05/16 10:00 PM) Lymphocytes 37.3 % [20.0-40.0 %] (11/05/16 10:00 PM) Monocytes [2.0-12.0 5.9 % %] (11/05/16 10:00 PM) Eosinophils [0.0-4.0 1.4 % %] (11/05/16 10:00 PM) Basophils [0.0-1.0 1.2 % %] *HI* (11/05/16 10:00 PM) Segs-Bands # 6.3 K/CMM [1.5-8.1 K/CMM] (11/05/16 10:00 PM) Lymphocytes # 4.3 K/CMM [1.0-5.5 K/CMM] (11/05/16 10:00 PM) Monocytes # [0.0-0.8 0.7 K/CMM K/CMM] (11/05/16 10:00 PM) Eosinophils # 0.2 K/CMM [0.0-0.5 K/CMM] (11/05/16 10:00 PM) Basophils # [0.0-0.2 0.1 K/CMM K/CMM] (11/05/16 10:00 PM) Immunizations Given and Recorded Vaccine Date Status Refusal Reason pneumococcal 23-valent vaccine 06/29/16 Given Procedures Procedure Date Related Diagnosis Body Site Cervical spinal fusion Cholecystectomy Hysterectomy Knee joint operation Laparoscopic adjustable gastric banding Procedure1 1right pinky finger surgey x 7 Social History Social History Type Response Alcohol Current, Type Wine. Frequency: 1-2 times per week. Smoking Status Never smoker; Exposure to Tobacco Smoke None; Cigarette Smoking Last 365 Days Yes; Reg Smoking Cessation Counseling Yes1 1occasional cigarettes Assessment and Plan No data available for this section
--- OUTSIDE RECORDS SUMMARY | 2019-01-02 13:30 | XMS REPORT | Summary of Care ---
Author Organization Unknown Address Unknown Phone Unavailable Encounter [facility] [place](PATRICIA) [id number] Date(s): 11/22/13 - 11/22/13 [facility] [address] Discharge Diagnosis: Pyelonephritis Discharge Disposition: Home Physician Attending: Peterson Heard MD Reason for Visit BACK PAIN Vital Signs 1 2 3 Most recent to oldest [Reference Range]: 175.26 cm (11/22/13 3:22 AM) Height 98.3 DegF (11/22/13 7:49 AM) 98.1 DegF (11/22/13 3:22 AM) Temperature Oral [96.4-99.1 DegF] 125 mmHg (11/22/13 7:49 AM) 119 mmHg (11/22/13 6:50 AM) 130 mmHg (11/22/13 5:00 AM) Systolic Blood Pressure [90-140 mmHg] 65 mmHg (11/22/13 7:49 AM) 80 mmHg (11/22/13 6:50 AM) 73 mmHg (11/22/13 5:00 AM) Diastolic Blood Pressure [60-90 mmHg] 18 BRMIN (11/22/13 7:49 AM) 20 BRMIN (11/22/13 6:50 AM) 18 BRMIN (11/22/13 5:00 AM) Respiratory Rate [14-20 BRMIN] 75 bpm (11/22/13 7:49 AM) 64 bpm (11/22/13 6:50 AM) 65 bpm (11/22/13 5:00 AM) Peripheral Pulse Rate [60-100 bpm] 88.636 kg (11/22/13 3:22 AM) Weight 28.86 m2 (11/22/13 3:22 AM) Body Mass Index Problem List Condition Effective Dates Status Health Status Informant Diabetes Resolved mellitus(Confirmed) Hypertension(Confirm Resolved ed) Positive 11/05/10 Active MRSA(Confirmed)1, 2 1Positive MRSA in urine on 11/05/2010. 2Problem added by Discern Expert. Allergies, Adverse Reactions, Alerts Substance Reaction Severity Status azithromycin Active sulfa drugs Active Medications cefTRIAXone 1 gm, Route: IVPB, Drug form: PDR/INJ, ONCE, Dosing Weight 88.636, kg, Priority: STAT, Start date: 11/22/13 6:30:00, Stop date: 11/22/13 6:30:00 Start Date: 11/22/13 Stop Date: 11/22/13 Status: Completed ciprofloxacin 500 mg oral tablet 500 mg=1 tab, PO, Q12H, # 20 tab, 0 Refill(s) Start Date: 11/22/13 Stop Date: 12/02/13 Status: Ordered morphine Sulfate 4 mg, Route: IVP, Drug form: INJ, ONCE, Dosing Weight 88.636, kg, Priority: STAT , Start date: 11/22/13 4:20:00, Stop date: 11/22/13 4:20:00 Start Date: 11/22/13 Stop Date: 11/22/13 Status: Completed morphine Sulfate 4 mg, Route: IVP, ONCE, Dosing Weight 88.636, kg, Priority: STAT, Start date: 5:34:00, Stop date: 11/22/13 5:34:00 Start Date: 11/22/13 Stop Date: 11/22/13 Status: Completed [place] 5/325 oral tablet 1-2 tab, PO, Q4-6H, Pain, # 15 tab, 0 Refill(s) Start Date: 11/22/13 Stop Date: 11/27/13 Status: Ordered ondansetron 4 mg, Route: IVP, ONCE, Dosing Weight 88.636, kg, Priority: STAT, Start date: 5:34:00, Stop date: 11/22/13 5:34:00 Start Date: 11/22/13 Stop Date: 11/22/13 Status: Completed Saline Flush 0.9% 5 mL, Route: IVP, Drug Form: INJ, Dosing Weight 88.636, kg, PRN, PRN Line Flush, Start date: 11/22/13 5:34:00, Duration: 24 hr, Stop date: 11/23/13 5:33:00 Notes: Same as: BD Posiflush Sterile Start Date: 11/22/13 Stop Date: 11/22/13 Status: Discontinued Sodium Chloride 0.9% (Bolus) IV - - 1,000 mL, Infuse Over: 1 hr, Route: IV, ONCE, Priority: STAT, Dosing Weight 88.6 36 kg, Start date: 11/22/13 5:34:00, Duration: 1 doses or times, Stop date: 11/02 08/17 5:34:00 Start Date: 11/22/13 Stop Date: 11/22/13 Status: Completed Zofran 4 mg, Route: IVP, Drug form: INJ, ONCE, Dosing Weight 88.636, kg, Priority: STAT , Start date: 11/22/13 4:20:00, Stop date: 11/22/13 4:20:00 Start Date: 11/22/13 Stop Date: 11/22/13 Status: Completed Zofran 4 mg oral tablet 4 mg=1 tab, PO, Q8H, as needed for nausea/vomiting, # 10 tab, 0 Refill(s) Start Date: 11/22/13 Status: Ordered Results ELECTROLYTES Most recent to 1 oldest [Reference Range]: Sodium Lvl [135-145 138 mEq/L mEq/L] (11/22/13 4:20 AM) Potassium Lvl 3.8 mEq/L [3.5-5.1 mEq/L] (11/22/13 4:20 AM) Chloride Lvl [95-109 104 mEq/L mEq/L] (11/22/13 4:20 AM) CO2 [24-32 mEq/L] 25 mEq/L (11/22/13 4:20 AM) AGAP [10.0-20.0 12.8 mEq/L mEq/L] (11/22/13 4:20 AM) CHEM PANEL Most recent to 1 oldest [Reference Range]: Creatinine Lvl 0.8 mg/dL [0.5-1.4 mg/dL] (11/22/13 4:20 AM) eGFR 86 mL/min/1.73m2 1 *NA* (11/22/13 4:20 AM) BUN [7-22 mg/dL] 14 mg/dL (11/22/13 4:20 AM) B/C Ratio [6-25] 18 (11/22/13 4:20 AM) Glucose Lvl [70-99 159 mg/dL 2 mg/dL] *HI* (11/22/13 4:20 AM) Total Protein 7.0 g/dL [6.4-8.4 g/dL] (11/22/13 4:20 AM) Albumin Lvl [3.5-5.0 3.9 g/dL g/dL] (11/22/13 4:20 AM) Globulin [2.0-4.0 3.1 g/dL g/dL] (11/22/13 4:20 AM) A/G Ratio [0.7-1.6] 1.3 (11/22/13 4:20 AM) Calcium Lvl 9.7 mg/dL [8.5-10.5 mg/dL] (11/22/13 4:20 AM) ALT [0-65 unit/L] 52 unit/L (11/22/13 4:20 AM) AST [0-37 unit/L] 30 unit/L (11/22/13 4:20 AM) Alk Phos [39-136 76 unit/L unit/L] (11/22/13 4:20 AM) Bili Total [0.2-1.3 0.4 mg/dL mg/dL] (11/22/13 4:20 AM) 1Result Comment: The eGFR is calculated [...] be mul tiplied by the estimated BMI. 2Interpretive Data: Adult reference range values reflect the clinical guidelines of the [place] [employer]. URINE AND STOOL Most recent to 1 oldest [Reference Range]: UA Turbidity [Clear] Marked *ABN* (11/22/13 5:41 AM) UA Color Ltyellow *NA* (11/22/13 5:41 AM) UA pH [5.0-8.0] 7.0 (11/22/13 5:41 AM) UA Spec Grav 1.009 [<=1.030] (11/22/13 5:41 AM) UA Glucose [Negative Negative mg/dL mg/dL] *NA* (11/22/13 5:41 AM) UA Blood [Negative] Small *ABN* (11/22/13 5:41 AM) UA Ketones [Negative Negative mg/dL mg/dL] *NA* (11/22/13 5:41 AM) UA Protein [Negative Negative mg/dL mg/dL] (11/22/13 5:41 AM) UA Urobilinogen <=1.0 mg/dL [0.1-1.0 mg/dL] *NA* (11/22/13 5:41 AM) UA Bili [Negative] Negative *NA* (11/22/13 5:41 AM) UA Leuk Est Small [Negative] *ABN* (11/22/13 5:41 AM) UA Nitrite Positive [Negative] *ABN* (11/22/13 5:41 AM) UA WBC [0-5 /HPF] 12 /HPF *HI* (11/22/13 5:41 AM) UA RBC [0-2 /HPF] 6 /HPF *HI* (11/22/13 5:41 AM) UA Bacteria [None Moderate /HPF Seen /HPF] *ABN* (11/22/13 5:41 AM) UA Sq Epi [Few /LPF] Occasional /LPF *NA* (11/22/13 5:41 AM) HEMATOLOGY Most recent to 1 oldest [Reference Range]: WBC [3.7-10.4 K/CMM] 9.2 K/CMM (11/22/13 4:20 AM) RBC [4.20-5.40 4.41 M/CMM M/CMM] (11/22/13 4:20 AM) Hgb [12.0-16.0 g/dL] 12.5 g/dL (11/22/13 4:20 AM) Hct [36.0-48.0 %] 36.6 % (11/22/13 4:20 AM) MCV [81.0-99.0 fL] 83.1 fL (11/22/13 4:20 AM) MCH [27.0-31.0 pg] 28.3 pg (11/22/13 4:20 AM) MCHC [32.0-36.0 34.0 g/dL g/dL] (11/22/13 4:20 AM) RDW [11.5-14.5 %] 13.8 % (11/22/13 4:20 AM) Platelet [133-450 253 K/CMM K/CMM] (11/22/13 4:20 AM) MPV [7.4-10.4 fL] 8.4 fL (11/22/13 4:20 AM) Segs [45.0-75.0 %] 61.2 % (11/22/13 4:20 AM) Lymphocytes 30.7 % [20.0-40.0 %] (11/22/13 4:20 AM) Monocytes [2.0-12.0 5.7 % %] (11/22/13 4:20 AM) Eosinophils [0.0-4.0 1.9 % %] (11/22/13 4:20 AM) Basophils [0.0-1.0 0.5 % %] (11/22/13 4:20 AM) Segs-Bands # 5.6 K/CMM [1.5-8.1 K/CMM] (11/22/13 4:20 AM) Lymphocytes # 2.8 K/CMM [1.0-5.5 K/CMM] (11/22/13 4:20 AM) Monocytes # [0.0-0.8 0.5 K/CMM K/CMM] (11/22/13 4:20 AM) Eosinophils # 0.2 K/CMM [0.0-0.5 K/CMM] (11/22/13 4:20 AM) Basophils # [0.0-0.2 0.0 K/CMM K/CMM] (11/22/13 4:20 AM) Medications Administered During Your Visit No data available for this section Immunizations No data available for this section
--- OUTSIDE RECORDS SUMMARY | 2019-01-02 13:30 | XMS REPORT | Summary of Care ---
Author Author [facility] [place] Address Unknown Phone Unavailable Encounter SANIYA Coleman(FIN) [id number] Date(s): 04/14/18 - 04/14/18 [facility] [place] [address] [facility] [place], [place] [address]- [phone] Encounter Diagnosis Mixed hyperlipidemia (Final) - 04/20/18 Abnormal levels of other serum enzymes (Final) - Nontoxic multinodular goiter (Final) - Occlusion and stenosis of bilateral carotid arteries (Final) - Fatty (change of) liver, not elsewhere classified (Final) - Other specified diseases of biliary tract (Final) - Acquired absence of other specified parts of digestive tract (Final) - Discharge Disposition: Home or Self Care Attending Physician: Nery Salazar MD Referring Physician: Nery Salazar MD Vital Signs No data available for this section Problem List Condition Effective Dates Status Health Status Informant Anxiety disorder1, 2 Active Benign Active hypertension3, 4 Cervical 10/15/13 Active spondylosis5, 6 Cervical Active spondylosis(Confirme d) Cobalamin Active deficiency(Confirmed ) Cobalamin 10/15/13 Active deficiency7, 8 Cyst(Confirmed)9 Resolved Diabetes Resolved mellitus(Confirmed) Diabetic - Active cooperative patient(Confirmed) Diverticulitis small Active intestine(Confirmed) Epilepsy(Confirmed) Active H/O MTHFR Resolved mutation(Confirmed) Penqgjfslowouo14, 11 10/22/13 Active Hypertension(Confirm Resolved ed) Hypertension(Confirm Resolved ed) Megaloblastic anemia Active due to cobalamin deficiency(Confirmed ) Megaloblastic anemia 10/15/13 Active due to folate yjixbntkht38, 13 Meniscus Active tear(Confirmed) Vjuaxhlc10, 15 10/15/13 Active Migraines(Confirmed) Active Positive 11/05/10 Active MRSA(Confirmed)16, 17 Multinodular 10/15/13 Active uiuhes29, 19 Seizure disorder, Active complex partial(Confirmed) Thyroid pwavwo45, 21 11/02/13 Active Type 2 diabetes Active bzhikakl09, 23 Vitamin D 10/22/13 Active qlcthotekg06, 25 1Data migrated from [employer] on [...] codeine sulfate vomting Active 1Data migrated from [employer] on 01/30/15. Originally documented as SULFA. Rash 2Data migrated from [employer] on 10/29/14. Originally documented as ZITHROMAX. rash Medications No data available for this section Results No data available for this section Immunizations Given and Recorded Vaccine Date Status [...]
--- OUTSIDE RECORDS SUMMARY | 2019-01-02 13:30 | XMS REPORT | Summary of Care ---
Author Author [facility] Organization [facility] Address Unknown Phone Unavailable Encounter SANIYA Coleman(PATRICIA) [id number] Date(s): 06/13/15 - 06/13/15 [facility] [address] [place] Professional Services provided by [facility] [employer] [facility] [place] [facility] [place] [address]- Discharge Disposition: Home Attending Physician: Physician, Non Associated MD Referring Physician: Chris Mason MD Vital Signs 1 2 3 Most recent to oldest [Reference Range]: 175.26 cm (06/13/15 12:10 PM) Height 98.2 DegF (06/13/15 12:10 PM) Temperature Oral [96.4-99.1 DegF] 120/75 mmHg (06/13/15 1:30 PM) 106/79 mmHg (06/13/15 1:05 PM) 105/62 mmHg (06/13/15 1:00 PM) Blood Pressure [90-140/60-90 mmHg] 16 BRMIN (06/13/15 1:30 PM) 16 BRMIN (06/13/15 1:05 PM) 17 BRMIN (06/13/15 1:00 PM) Respiratory Rate [14-20 BRMIN] 92 bpm (06/13/15 1:30 PM) 91 bpm (06/13/15 1:05 PM) 82 bpm (06/13/15 1:00 PM) Peripheral Pulse Rate [60-100 bpm] 86.364 kg (06/13/15 12:10 PM) Weight 28.12 m2 (06/13/15 12:10 PM) Body Mass Index Problem List Condition Effective Dates Status Health Status Informant Anxiety disorder1, 2 Active Benign Active hypertension3, 4 Cervical 10/15/13 Active spondylosis5, 6 Cobalamin 10/15/13 Active deficiency7, 8 Cyst(Confirmed)9 Resolved Diabetes Resolved mellitus(Confirmed) Diabetic - Active cooperative patient(Confirmed) Efwkrkynbklfxp92, 11 10/22/13 Active Hypertension(Confirm Resolved ed) Hypertension(Confirm Resolved ed) Megaloblastic anemia 10/15/13 Active due to folate rqqzykxypt19, 13 Meniscus Active tear(Confirmed) Qodenuhm50, 15 10/15/13 Active Positive 11/05/10 Active MRSA(Confirmed)16, 17 Multinodular 10/15/13 Active voarwa87, 19 Seizure(Confirmed) Active Thyroid fsohpp86, 21 11/02/13 Active Type 2 diabetes Active yeutwdwe31, 23 Vitamin D 10/22/13 Active lladgbbovm83, 25 1Data migrated from [employer] on [...] Active sulfa drugs2 Active 1Data migrated from [facility] on 10/29/14. Originally documented as ZITHROMAX. rash 2Data migrated from [facility] on 01/30/15. Originally documented as SULFA. Rash Medications Farxiga PO, Daily, 0 Refill(s) Start Date: 06/13/15 Status: Ordered folic acid 1 mg oral tablet 1 mg=1 tab, PO, Daily, 0 Refill(s) Start Date: 06/13/15 Status: Ordered LORazepam 1 mg oral tablet 1 mg=1 tab, PO, Bedtime, 0 Refill(s) Start Date: 06/13/15 Status: Ordered midazolam 1 mg, 1 mL, Route: IVP, Drug form: INJ, PRN, PRN Procedure, Start date: 06/13/15 13:34:00, Stop date: 06/13/15 16:00:00 Notes: (Same as: Versed) MEDICATION WASTE Product Size: 5 mgProduct Was jocelynn: ___ mg Start Date: 06/13/15 Stop Date: 06/13/15 Status: Discontinued Sublimaze 50 microgram, 1 mL, Route: IVP, Drug form: INJ, PRN, PRN Procedure, Start date: 06/13/15 13:34:00, Stop date: 06/13/15 16:00:00 Notes: (Same as: Sublimaze) Preservative free. Start Date: 06/13/15 Stop Date: 06/13/15 Status: Discontinued Topamax PO, BID, 0 Refill(s) Start Date: 06/13/15 Status: Ordered Zofran 4 mg, 2 mL, Route: IVP, Drug form: INJ, ONCE, Start date: 06/13/15 14:00:00, Sto p date: 06/13/15 14:00:00 Notes: (Same as: Zofran) MEDICATION WASTE Product Size: 4 mgProduct Was jocelynn: ___ mg Start Date: 06/13/15 Stop Date: 06/13/15 Status: Completed Results No data available for this section Immunizations No data available for this section Procedures Procedure Date Related Diagnosis Body Site Cervical spinal fusion Cholecystectomy Hysterectomy Laparoscopic adjustable gastric banding Procedure1 1right pinky finger surgey x 7 Social History Social History Type Response Alcohol Current, Type Wine. Frequency: 1-2 times per week. Smoking Status Former smoker; Type: Cigarettes; Exposure to Tobacco Smoke None; Cigarette Smoking Last 365 Days Yes; Reg Smoking Cessation Counseling Yes1 1occasional cigarettes Assessment and Plan No data available for this section
--- OUTSIDE RECORDS SUMMARY | 2019-01-02 13:30 | XMS REPORT | Summary of Care ---
Author Author [facility] Organization [facility] Address Unknown Phone Unavailable Encounter SANIYA Coleman(PATRICIA) [id number] Date(s): 03/05/15 - 03/05/15 [facility] [address] Professional Services provided by [facility] [place] [address]- Discharge Disposition: Home Attending Physician: Arnoldo Paulino MD Referring Physician: Arnoldo Paulino MD Vital Signs 1 2 3 Most recent to oldest [Reference Range]: 175.26 cm (03/05/15 1:41 PM) 175.26 cm (03/05/15 12:41 PM) Height 1 2 3 Most recent to oldest [Reference Range]: 97.3 DegF (03/05/15 3:25 PM) 97.9 DegF (03/05/15 1:20 PM) Temperature Oral [96.4-99.1 DegF] 1 2 3 Most recent to oldest [Reference Range]: 117/93 mmHg (03/05/15 4:01 PM) 123/81 mmHg (03/05/15 3:45 PM) 111/76 mmHg (03/05/15 3:25 PM) Blood Pressure [90-140/60-90 mmHg] 1 2 3 Most recent to oldest [Reference Range]: 16 BRMIN (03/05/15 4:01 PM) 18 BRMIN (03/05/15 3:45 PM) 16 BRMIN (03/05/15 3:25 PM) Respiratory Rate [14-20 BRMIN] 1 2 3 Most recent to oldest [Reference Range]: 74 bpm (03/05/15 4:01 PM) 78 bpm (03/05/15 3:45 PM) 74 bpm (03/05/15 3:25 PM) Peripheral Pulse Rate [60-100 bpm] 1 2 3 Most recent to oldest [Reference Range]: 88.636 kg (03/05/15 1:41 PM) 88.636 kg (03/05/15 12:41 PM) Weight 1 2 3 Most recent to oldest [Reference Range]: 28.86 m2 (03/05/15 1:41 PM) 28.86 m2 (03/05/15 12:41 PM) Body Mass Index Problem List Condition Effective Dates Status Health Status Informant Anxiety disorder1, 2 Active Benign Active hypertension3, 4 Cervical 10/15/13 Active spondylosis5, 6 Cobalamin 10/15/13 Active deficiency7, 8 Diabetes Resolved mellitus(Confirmed) Diabetic - Active cooperative patient(Confirmed) Hyperlipidemia9, 10 10/22/13 Active Hypertension(Confirm Resolved ed) Hypertension(Confirm Resolved ed) Megaloblastic anemia 10/15/13 Active due to folate nkyrwmbnit45, 12 Zyyjyjqn12, 14 10/15/13 Active Positive 11/05/10 Active 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 2Data migrated from [employer] on 12/03/14. 3Data migrated from [employer] on 12/03/14. 4Data migrated from [employer] on 12/03/14. 5Data migrated from [employer] on 12/03/14. 6Data migrated from [employer] on 12/03/14. 7Data migrated from [employer] on 12/03/14. 8Data migrated from [employer] on 12/03/14. 9Data migrated from [employer] on 12/03/14. 10Data migrated from [employer] on 12/03/14. 11Data migrated from [employer] on 12/03/14. 12Data migrated from [employer] on 12/03/14. 13Data migrated from [employer] on 12/03/14. 14Data migrated from [employer] on 12/03/14. 15Positive MRSA in urine on 11/05/2010. 16Problem added by Discern Expert. 17Data migrated from [employer] on 12/03/14. 18Data migrated from [employer] on 12/03/14. 19Data migrated from [employer] on 12/03/14. 20Data migrated from [employer] on 12/03/14. 21Data migrated from [employer] on 12/03/14. 22Data migrated from [employer] on 12/03/14. 23Data migrated from [employer] on 12/03/14. 24Data migrated from [employer] on 12/03/14. Allergies, Adverse Reactions, Alerts Substance Reaction Severity Status azithromycin1 Active sulfa drugs2 Active 1Data migrated from [employer] on 10/29/14. Originally documented as ZITHROMAX. rash 2Data migrated from [employer] on 01/30/15. Originally documented as SULFA. Rash Medications losartan PO, Daily, 0 Refill(s) Start Date: 03/05/15 Status: Ordered Results CHEM PANEL Most recent to 1 oldest [Reference Range]: Creatinine Lvl 0.7 mg/dL [0.5-1.4 mg/dL] (03/05/15 12:51 PM) eGFR 100 mL/min/1.73m2 1 *NA* (03/05/15 12:51 PM) BUN [7-22 mg/dL] 18 mg/dL (03/05/15 12:51 PM) 1Result Comment: The eGFR is calculated [...] be mul tiplied by the estimated BMI. Immunizations No data available for this section Procedures Procedure Date Related Diagnosis Body Site Cervical spinal fusion Laparoscopic adjustable gastric banding Social History Social History Type Response Smoking Status Former smoker; Type: Cigarettes; Exposure to Tobacco Smoke None; Cigarette Smoking Last 365 Days Yes; Reg Smoking Cessation Counseling Yes1 1occasional cigarettes Assessment and Plan No data available for this section
--- OUTSIDE RECORDS SUMMARY | 2019-01-02 13:30 | XMS REPORT | CCD ---
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 2Problem added by Discern Expert. Medications Medication Instructions Start Date End Date Status Saline Flush 0.9% 5 ml, Route: IVP, Drug Form: INJ, 11/09/2012 11/10/2012 Discontinued Dosing Weight 79.545, kg, PRN, PRN Line Flush, Start date: 11/09/12 22:47:00, Duration: 30 day, Stop date: 12/09/12 22:46:00 acetaminophen 325 mg 325 mg, 1 supp, IN, Q4H, PRN, 12 11/10/2012 Ordered rectal suppository supp, Pain, Substitution Allowed potassium chloride 40 mEq, Route: PO, Drug form: 11/10/2012 11/10/2012 Completed ERTAB, ONCE, Dosing Weight 79.545, kg, Priority: Routine, Start date: 11/10/12 2:08:00, Stop date: 11/10/12 2:08:00 acetaminophen 650 mg, Route: IN, Drug form: SUPP, 11/10/2012 11/10/2012 Completed ONCE, Dosing Weight 79.545, kg, Priority: STAT, Start date: 11/10/12 2:19:00, Stop date: 11/10/12 2:19:00 Vital Signs Most recent to oldest [Reference Range]: 1 2 Height 175.26 cm (11/09/2012 22:42:00) 175.26 cm (11/09/2012 22:17:00) Weight 79.545 kg (11/09/2012 22:42:00) 65.909 kg (11/09/2012 22:17:00) Results BEDSIDE GLUCOSE TESTING Most recent to oldest [Reference Range]: 1 Gluc POC [place]n [70-99 mg/dL] 142 mg/dL 1 *HI* (11/09/2012 23:37:00) Comment1 Notify RN/MD *NA* (11/09/2012 23:37:00) 1Interpretive Data: Upper Reportable Limit: 200 mg/dL. URINALYSIS Most recent to oldest [Reference Range]: 1 UA Turbidity [Clear] Clear (11/10/2012 01:24:00) UA Color Ltyellow *NA* (11/10/2012 01:24:00) UA pH [5.0-8.0] 6.0 (11/10/2012 01:24:00) UA Spec Grav [<=1.030] 1.013 (11/10/2012 01:24:00) UA Glucose [Negative mg/dL] Negative mg/dL *NA* (11/10/2012 01:24:00) UA Blood [Negative] Negative (11/10/2012 01:24:00) UA Ketones [Negative mg/dL] Negative mg/dL *NA* (11/10/2012 01:24:00) UA Protein [Negative mg/dL] Negative mg/dL (11/10/2012 01:24:00) UA Urobilinogen [0.1-1.0 mg/dL] <=1.0 mg/dL *NA* (11/10/2012 01:24:00) UA Bili [Negative] Negative *NA* (11/10/2012 01:24:00) UA Leuk Est [Negative] Negative (11/10/2012 01:24:00) UA Nitrite [Negative] Negative (11/10/2012 01:24:00) UA WBC [0-5 /HPF] 1 /HPF (11/10/2012 01:24:00) UA RBC [0-2 /HPF] 1 /HPF (11/10/2012 01:24:00) UA Sq Epi [Few /LPF] Occasional /LPF *NA* (11/10/2012 01:24:00) UA Hyal Cast [0-2 /LPF] 1 /LPF (11/10/2012 01:24:00) CHEMISTRY Most recent to oldest [Reference Range]: 1 Sodium Lvl [135-145 mEq/L] 141 mEq/L (11/09/2012:30:00) Potassium Lvl [3.5-5.1 mEq/L] 3.4 mEq/L *LOW* (11/09/2012:30:00) Chloride Lvl [95-109 mEq/L] 105 mEq/L (11/09/2012:30:00) CO2 [24-32 mEq/L] 27 mEq/L (11/09/2012:30:00) AGAP [10.0-20.0 mEq/L] 12.4 mEq/L (11/09/2012::00) Creatinine Lvl [0.5-1.4 mg/dL] 0.8 mg/dL (11/09/2012:30:00) eGFR 86 mL/min/1.73m2 2 *NA* (11/09/2012:30:00) BUN [7-22 mg/dL] 14 mg/dL (11/09/2012:30:00) B/C Ratio [6-25] 18 (11/09/2012:30:00) Glucose Lvl [70-99 mg/dL] 140 mg/dL 3 *HI* (11/09/2012:30:00) Total Protein [6.4-8.4 g/dL] 7.3 g/dL (11/09/2012:30:00) Albumin Lvl [3.5-5.0 g/dL] 4.2 g/dL (11/09/2012:30:00) Globulin [2.0-4.0 g/dL] 3.1 g/dL (11/09/2012:30:00) A/G Ratio [0.7-1.6] 1.4 (11/09/2012:00) Calcium Lvl [8.5-10.5 mg/dL] 8.9 mg/dL (11/09/2012:30:00) ALT [0-65 unit/L] 32 unit/L (11/09/2012:30:00) AST [0-37 unit/L] 17 unit/L (11/09/2012 23:30:00) Alk Phos [39-136 unit/L] 80 unit/L (11/09/2012 23:30:00) Bili Total [0.2-1.3 mg/dL] 0.4 mg/dL (11/09/2012 23:30:00) Total CK [12-191 unit/L] 58 unit/L (11/09/2012 23:30:00) CK MB [0.5-3.6 ng/mL] <0.5 ng/mL (11/09/2012 23:30:00) CK MB Index [0.0-2.5] <0.9 (11/09/2012:30:00) Troponin-I [0.00-0.40 ng/mL] <0.02 ng/mL (11/09/2012 23:30:00) U Amph Scr [Negative] Negative *NA* (11/10/2012:24:00) U Mili Scr [Negative] Negative *NA* (11/10/2012:24:00) U Benzodia Scr [Negative] Negative *NA* (11/10/2012 01:24:00) U Cocaine Scr [Negative] Negative *NA* (11/10/2012:24:00) U Opiate Scr [Negative] Negative *NA* (11/10/2012:24:00) U Phencyc Scr [Negative] Negative *NA* (11/10/2012:24:00) U Cannab Scr [Negative] Positive *ABN* (11/10/2012:24:00) UDS Note See Note 4 (11/10/2012:24:00) Etoh (%) <.003 % 5 *NA* (11/09/2012 01:00:00) Ethanol Lvl <3 mg/dL 6 *NA* (11/09/2012 01:00:00) U Preg [Negative] Negative (11/10/2012:24:00) 2Result Comment: The eGFR is calculated using the [...] be mul tiplied by the estimated BMI. 3Interpretive Data: Adult reference range values reflect the clinical guidelines of the [place] [employer]. 4Interpretive Data: Drugs reported as positive have not [...] ng/mL Marijuana metabolites 50 ng/mL Methadone 300 ng/mL Urine alcohol 20 mg/dL 5Interpretive Data: Negative Range: <0.003% Toxic Range: >0.25% 6Interpretive Data: Negative Range: <3 mg/dL Toxic Range: >250 mg/dL HEMATOLOGY Most recent to oldest [Reference Range]: 1 WBC [3.7-10.4 K/CMM] 13.4 K/CMM *HI* (11/09/2012 23:30:00) RBC [4.20-5.40 M/CMM] 4.54 M/CMM (11/09/2012 23:30:00) Hgb [12.0-16.0 g/dL] 12.6 g/dL (11/09/2012 23:30:00) Hct [36.0-48.0 %] 38.0 % (11/09/2012 23:30:00) MCV [81.0-99.0 fL] 83.8 fL (11/09/2012 23:30:00) MCH [27.0-31.0 pg] 27.7 pg (11/09/2012:30:00) MCHC [32.0-36.0 g/dL] 33.1 g/dL (11/09/2012:30:00) RDW [11.5-14.5 %] 13.1 % (11/09/2012:30:00) Platelet [133-450 K/CMM] 262 K/CMM (11/09/2012:30:00) MPV [7.4-10.4 fL] 8.0 fL (11/09/2012:30:00) Segs [45.0-75.0 %] 85.8 % *HI* (11/09/2012:30:00) Lymphocytes [20.0-40.0 %] 11.5 % *LOW* (11/09/2012:30:00) Monocytes [2.0-12.0 %] 2.3 % (11/09/2012 23:30:00) Eosinophils [0.0-4.0 %] 0.4 % (11/09/2012:30:00) Basophils [0.0-1.0 %] 0.0 % (11/09/2012:30:00) Segs-Bands # [1.5-8.1 K/CMM] 11.5 K/CMM *HI* (11/09/2012:30:00) Lymphocytes # [1.0-5.5 K/CMM] 1.6 K/CMM (11/09/2012 23:30:00) Monocytes # [0.0-0.8 K/CMM] 0.3 K/CMM (11/09/2012:30:00) Eosinophils # [0.0-0.5 K/CMM] 0.0 K/CMM (11/09/2012:30:00) Basophils # [0.0-0.2 K/CMM] 0.0 K/CMM (11/09/2012 23:30:00) RBC Morph Normal (11/09/2012 23:30:00) Plt Morph Normal (11/09/2012 23:30:00) PT [12.0-14.7 seconds] 13.2 seconds (11/09/2012 23:30:00) INR [0.85-1.17] 0.98 7 (11/09/2012 23:30:00) PTT [22.9-35.8 seconds] 29.6 seconds 8 (11/09/2012 23:30:00) 7Interpretive Data: RECOMMENDED RANGES FOR PROTIME INR: 2.0-3.0 for most medical and surgical thromboembolic states. 2.5-3.5 for artificial heart valves and recurrent embolism. INR SHOULD BE USED ONLY FOR PATIENTS ON STABLE ANTICOAGULANT THERAPY. 8Interpretive Data: Heparin Therapeutic Range: 57 - 92 Seconds Procedures Procedures Date Related Diagnosis Cervical spinal fusion Laparoscopic adjustable gastric banding
--- OUTSIDE RECORDS SUMMARY | 2019-01-02 13:31 | XMS REPORT | Summary of Care ---
Author Author [facility] Organization [facility] Address Unknown Phone Unavailable Encounter SANIYA Coleman(PATRICIA) [id number] Date(s): 11/26/15 - 11/26/15 [facility] [id number] [place] [address]- Discharge Diagnosis: Diverticulitis of large intestine without perforation or ab scess without bleeding Discharge Disposition: Home Attending Physician: Chandan Butler MD Vital Signs 1 2 3 Most recent to oldest [Reference Range]: 175.26 cm (11/26/15 12:30 AM) Height 98.5 DegF (11/26/15 4:11 AM) 98.3 DegF (11/26/15 12:30 AM) Temperature Oral [96.4-99.1 DegF] 119/69 mmHg (11/26/15 4:12 AM) 119/69 mmHg (11/26/15 4:11 AM) 129/74 mmHg (11/26/15 1:58 AM) Blood Pressure [90-140/60-90 mmHg] 18 BRMIN (11/26/15 4:11 AM) 18 BRMIN (11/26/15 1:58 AM) 18 BRMIN (11/26/15 12:30 AM) Respiratory Rate [14-20 BRMIN] 90 bpm (11/26/15 4:11 AM) 70 bpm (11/26/15 1:58 AM) 99 bpm (11/26/15 12:30 AM) Peripheral Pulse Rate [60-100 bpm] 83.182 kg (11/26/15 12:30 AM) Weight 27.08 m2 (11/26/15 12:30 AM) Body Mass Index Problem List Condition Effective Dates Status Health Status Informant Anxiety disorder1, 2 Active Benign Active hypertension3, 4 Cervical Active spondylosis(Confirme d) Cervical 10/15/13 Active spondylosis5, 6 Cobalamin Active deficiency(Confirmed ) Cobalamin 10/15/13 Active deficiency7, 8 Cyst(Confirmed)9 Resolved Diabetes Resolved mellitus(Confirmed) Diabetic - Active cooperative patient(Confirmed) Diverticulitis small Active intestine(Confirmed) Epilepsy(Confirmed) Active Hyperlipidemia(Confi Active rmed) [id number], 11 10/22/13 Active Hypertension(Confirm Resolved ed) Hypertension(Confirm Resolved ed) Megaloblastic anemia Active due to cobalamin deficiency(Confirmed ) Megaloblastic anemia 10/15/13 Active due to folate [id number], 13 Meniscus Active tear(Confirmed) [id number], 15 10/15/13 Active Migraines(Confirmed) Active Positive 11/05/10 Active MRSA(Confirmed)16, 17 Multinodular 10/15/13 Active [id number], 19 Seizure disorder, Active complex partial(Confirmed) Thyroid , 21 11/02/13 Active Type 2 diabetes Active [id number], 23 Vitamin D 10/22/13 Active [id number], 25 1Data migrated from [employer] on [...] 01/30/15. Originally documented as SULFA. Rash Medications Cipro 500 mg oral tablet 500 mg=1 tab, PO, Q12H, X 14 day, # 28 tab, 0 Refill(s) Start Date: 11/26/15 Stop Date: 11/28/15 Status: Discontinued Flagyl 500 mg oral tablet 500 mg=1 tab, PO, Q8H, X 14 day, # 42 tab, 0 Refill(s) Start Date: 11/26/15 Stop Date: 11/28/15 Status: Discontinued morphine Sulfate 4 mg, Route: IVP, ONCE, Dosing Weight 83.182, kg, Priority: STAT, Start date: 1:45:00 CDT, Stop date: 11/26/15 1:45:00 CDT Start Date: 11/26/15 Stop Date: 11/26/15 Status: Completed morphine Sulfate 4 mg, Route: IVP, ONCE, Dosing Weight 83.182, kg, Priority: STAT, Start date: 3:55:00 CDT, Stop date: 11/26/15 3:55:00 CDT Start Date: 11/26/15 Stop Date: 11/26/15 Status: Completed ondansetron 4 mg, Route: IVP, Drug form: INJ, ONCE, Dosing Weight 83.182, kg, Priority: STAT , Start date: 11/26/15 1:45:00 CDT, Stop date: 11/26/15 1:45:00 CDT Start Date: 11/26/15 Stop Date: 11/26/15 Status: Completed Ultram 50 mg oral tablet 50 mg=1 tab, PO, Q6H, PRN pain, X 5 day, # 20 tab, 0 Refill(s) Start Date: 11/26/15 Stop Date: 11/28/15 Status: Discontinued Results ELECTROLYTES Most recent to 1 oldest [Reference Range]: Sodium Lvl [135-145 136 mEq/L mEq/L] (11/26/15 2:01 AM) Potassium Lvl 3.8 mEq/L [3.5-5.1 mEq/L] (11/26/15 2:01 AM) Chloride Lvl [95-109 104 mEq/L mEq/L] (11/26/15 2:01 AM) CO2 [24-32 mEq/L] 21 mEq/L *LOW* (11/26/15 2:01 AM) AGAP [10.0-20.0 14.8 mEq/L mEq/L] (11/26/15 2:01 AM) CHEM PANEL Most recent to 1 oldest [Reference Range]: Creatinine Lvl 0.77 mg/dL [0.50-1.40 mg/dL] (11/26/15 2:01 AM) eGFR 89 mL/min/1.73m2 1 *NA* (11/26/15 2:01 AM) BUN [7-22 mg/dL] 16 mg/dL (11/26/15 2:01 AM) Glucose Lvl [70-99 133 mg/dL mg/dL] *HI* (11/26/15 2:01 AM) Calcium Lvl 8.7 mg/dL [8.5-10.5 mg/dL] (11/26/15 2:01 AM) 1Result Comment: The eGFR is calculated [...] 1 oldest [Reference Range]: UA Turbidity [Clear] Slight *ABN* (11/26/15 3:08 AM) UA Color [Yellow] Yellow *NA* (11/26/15 3:08 AM) UA pH [5.0-8.0] 7.0 (11/26/15 3:08 AM) UA Spec Grav 1.018 [<=1.030] (11/26/15 3:08 AM) UA Glucose [Negative 500 mg/dL mg/dL] *ABN* (11/26/15 3:08 AM) UA Blood [Negative] Negative (11/26/15 3:08 AM) UA Ketones [Negative Negative mg/dL mg/dL] *NA* (11/26/15 3:08 AM) UA Protein [Negative Negative mg/dL mg/dL] (11/26/15 3:08 AM) UA Urobilinogen <=1.0 mg/dL [0.1-1.0 mg/dL] *NA* (11/26/15 3:08 AM) UA Bili [Negative] Negative *NA* (11/26/15 3:08 AM) UA Leuk Est Negative [Negative] (11/26/15 3:08 AM) UA Nitrite Positive [Negative] *ABN* (11/26/15 3:08 AM) UA WBC [0-5 /HPF] <1 /HPF (11/26/15 3:08 AM) UA RBC [0-2 /HPF] 1 /HPF (11/26/15 3:08 AM) UA Bacteria [None Occasional /HPF Seen /HPF] *NA* (11/26/15 3:08 AM) UA Sq Epi [Few /LPF] Occasional /LPF *NA* (11/26/15 3:08 AM) UA [place] Yeast [None Occasional /HPF Seen /HPF] *ABN* (11/26/15 3:08 AM) HEMATOLOGY Most recent to 1 oldest [Reference Range]: WBC [3.7-10.4 K/CMM] 12.0 K/CMM *HI* (11/26/15 2:01 AM) RBC [4.20-5.40 5.05 M/CMM M/CMM] (11/26/15 2:01 AM) Hgb [12.0-16.0 g/dL] 13.4 g/dL (11/26/15 2:01 AM) Hct [36.0-48.0 %] 40.8 % (11/26/15 2:01 AM) MCV [80.0-98.0 fL] 80.9 fL (11/26/15 2:01 AM) MCH [27.0-31.0 pg] 26.6 pg *LOW* (11/26/15 2:01 AM) MCHC [32.0-36.0 32.9 g/dL g/dL] (11/26/15 2:01 AM) RDW [11.5-14.5 %] 13.6 % (11/26/15 2:01 AM) Platelet [133-450 220 K/CMM K/CMM] (11/26/15 2:01 AM) MPV [7.4-10.4 fL] 7.8 fL (11/26/15 2:01 AM) Segs [45.0-75.0 %] 61.1 % (11/26/15 2:01 AM) Lymphocytes 30.0 % [20.0-40.0 %] (11/26/15 2:01 AM) Monocytes [2.0-12.0 6.6 % %] (11/26/15 2:01 AM) Eosinophils [0.0-4.0 1.0 % %] (11/26/15 2:01 AM) Basophils [0.0-1.0 1.3 % %] *HI* (11/26/15 2:01 AM) Segs-Bands # 7.3 K/CMM [1.5-8.1 K/CMM] (11/26/15 2:01 AM) Lymphocytes # 3.6 K/CMM [1.0-5.5 K/CMM] (11/26/15 2:01 AM) Monocytes # [0.0-0.8 0.8 K/CMM K/CMM] (11/26/15 2:01 AM) Eosinophils # 0.1 K/CMM [0.0-0.5 K/CMM] (5/25/16 2:01 AM) Basophils # [0.0-0.2 0.2 K/CMM K/CMM] (11/26/15 2:01 AM) Immunizations No data available for this section [...]
--- OUTSIDE RECORDS SUMMARY | 2019-01-02 13:31 | XMS REPORT | Summary of Care ---
Author Author [facility] Organization [facility] Address Unknown Phone Unavailable Encounter [facility] [place](PATRICIA) [id number] Date(s): 11/27/15 - 11/28/15 [facility] [address] [place] [address]- Discharge Disposition: Home Attending Physician: Jackson Logan DO Admitting Physician: Jackson Logan DO Vital Signs 1 2 3 Most recent to oldest [Reference Range]: 167.64 cm (11/27/15 5:59 PM) 175.26 cm (11/27/15 12:29 PM) Height 98.1 DegF (11/28/15 11:28 AM) 98.3 DegF (11/28/15 7:43 AM) 98.1 DegF (11/28/15 4:24 AM) Temperature Oral [96.4-99.1 DegF] 117/76 mmHg (11/28/15 11:28 AM) 116/76 mmHg (11/28/15 7:43 AM) 121/73 mmHg (11/28/15 4:24 AM) Blood Pressure [90-140/60-90 mmHg] 18 BRMIN (11/28/15 11:28 AM) 18 BRMIN (11/28/15 7:43 AM) 18 BRMIN (11/28/15 4:24 AM) Respiratory Rate [14-20 BRMIN] 57 bpm *LOW* (11/28/15 11:28 AM) 60 bpm (11/28/15 7:43 AM) 70 bpm (11/28/15 4:24 AM) Peripheral Pulse Rate [60-100 bpm] 83.15 kg (11/27/15 5:59 PM) 83.182 kg (11/27/15 12:29 PM) Weight 29.59 m2 (11/27/15 5:59 PM) 27.08 m2 (11/27/15 12:29 PM) Body Mass Index Problem List Condition Effective Dates Status Health Status Informant Anxiety disorder1, 2 Active Benign Active hypertension3, 4 Cervical Active spondylosis(Confirme d) Cervical 10/15/13 Active spondylosis5, 6 Cobalamin Active deficiency(Confirmed ) Cobalamin 10/15/13 Active deficiency7, 8 Cyst(Confirmed)9 Resolved Diabetes Resolved mellitus(Confirmed) Diabetic - Active cooperative patient(Confirmed) Diverticulitis small Active intestine(Confirmed) Epilepsy(Confirmed) Active Hyperlipidemia(Confi Active rmed) Zggtnxvgyuwido97, 11 10/22/13 Active Hypertension(Confirm Resolved ed) Hypertension(Confirm Resolved ed) Megaloblastic anemia Active due to cobalamin deficiency(Confirmed ) Megaloblastic anemia 10/15/13 Active due to folate ndjbwezbsu33, 13 Meniscus Active tear(Confirmed) Lbllpepf16, 15 10/15/13 Active Migraines(Confirmed) Active Positive 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 Originally documented as SULFA. Rash Medications acetaminophen 650 mg, 2 tab, Route: PO, Drug form: TAB, Q4H, Dosing Weight 83.182, kg, PRN Clarice n 1-3/Temp > 100.4 F, Start date: 11/27/15 17:36:00 CDT, Duration: 30 day, Stop date: 12/27/15 17:35:00 CDT Notes: Do not exceed 4 gm/day. (Same as: Tylenol) Start Date: 11/27/15 Stop Date: 11/28/15 Status: Discontinued Ceftin 500 mg oral tablet 500 mg, PO, [id number], # 28 tab, 0 Refill(s) Start Date: 11/28/15 Stop Date: 11/29/15 Status: Completed cefuroxime 500 mg, 2 tab, Route: PO, Drug form: TAB, [id number], Dosing Weight 83.15, kg, Star t date: 11/28/15 21:00:00 CDT, Duration: 14 day, Stop date: 12/12/15 9:00:00 CDT Notes: (Do Not Crush) With food. (Same As: Ceftin) Start Date: 11/28/15 Stop Date: 11/28/15 Status: Canceled ciprofloxacin 400 mg, 200 mL, Route: IVPB, Drug form: INJ, [id number], Dosing Weight 83.182, kg, Priority: STAT, Start date: 11/27/15 16:48:00 CDT, Duration: 30 day, Stop date: 12/27/15 4:48:00 CDT Notes: Do not refrigerate Start Date: 11/27/15 Stop Date: 11/28/15 Status: Discontinued ciprofloxacin 400 mg, Route: IVPB, ONCE, Dosing Weight 83.182, kg, Priority: STAT, Start date: 11/27/15 13:58:00 CDT, Stop date: 11/27/15 13:58:00 CDT Start Date: 11/27/15 Stop Date: 11/27/15 Status: Completed Colace 100 mg oral capsule 100 mg, 1 cap, Route: PO, Drug form: CAP, BID, Dosing Weight 83.15, kg, PRN Cons tipation, Start date: 11/28/15 13:12:00 CDT, Duration: 10 day, Stop date: 13:11:00 CDT Notes: (Same as: Colace) (Do Not Crush) Start Date: 11/28/15 Stop Date: 11/28/15 Status: Discontinued Colace 100 mg oral capsule 100 mg=1 cap, PO, BID, PRN Constipation, # 20 cap, 0 Refill(s) Start Date: 11/28/15 Status: Ordered Dextrose 50% Syringe 25 gm, 50 mL, Route: IVP, Drug Form: INJ, Dosing Weight 83.182, kg, PRN, PRN Blo od Glucose Results, Start date: 11/27/15 17:23:00 CDT, Duration: 30 day, Stop da te: 12/27/15 17:22:00 CDT Start Date: 11/27/15 Stop Date: 11/28/15 Status: Discontinued Dextrose 50% Syringe 12.5 gm, 25 mL, Route: IVP, Drug Form: INJ, Dosing Weight 83.182, kg, PRN, PRN B lood Glucose Results, Start date: 11/27/15 17:23:00 CDT, Duration: 30 day, Stop date: 12/27/15 17:22:00 CDT Start Date: 11/27/15 Stop Date: 11/28/15 Status: Discontinued Dilaudid 0.5 mg, 0.5 mL, Route: IVP, Drug form: INJ, ONCE, Dosing Weight 83.182, kg, Prio rity: STAT, Start date: 11/27/15 16:44:00 CDT, Stop date: 11/27/15 16:44:00 CDT Start Date: 11/27/15 Stop Date: 11/27/15 Status: Completed Dilaudid 0.5 mg, Route: IVP, ONCE, Dosing Weight 83.182, kg, Priority: STAT, Start date: 11/27/15 13:00:00 CDT, Stop date: 11/27/15 13:00:00 CDT Start Date: 11/27/15 Stop Date: 11/27/15 Status: Completed Flagyl 500 mg, 100 mL, Route: IV, Drug form: INJ, [id number], Dosing Weight 83.182, kg, Sta rt date: 11/27/15 18:00:00 CDT, Duration: 30 day, Stop date: 12/27/15 12:00:00 C DT Notes: (Same as: Flagyl) Avoid alcohol. Start Date: 11/27/15 Stop Date: 11/28/15 Status: Discontinued Flagyl 500 mg, 1 tab, Route: PO, Drug form: TAB, [id number], Dosing Weight 83.182, kg, Star t date: 11/27/15 18:00:00 CDT, Duration: 30 day, Stop date: 12/27/15 10:00:00 CD T Notes: (Same as: Flagyl) Take with food/ avoid alcohol Start Date: 11/27/15 Stop Date: 11/27/15 Status: Canceled Flagyl 500 mg, Route: IVPB, ONCE, Dosing Weight 83.182, kg, Priority: STAT, Start date: 11/27/15 13:58:00 CDT, Stop date: 11/27/15 13:58:00 CDT Start Date: 11/27/15 Stop Date: 11/27/15 Status: Completed folic acid 1 mg, 1 tab, Route: PO, Drug form: TAB, Daily, Dosing Weight 83.15, kg, Start da te: 11/29/15 9:00:00 CDT, Duration: 30 day, Stop date: 12/28/15 9:00:00 CDT Notes: (Same as: Femi) Start Date: 11/29/15 Stop Date: 11/28/15 Status: Canceled glucagon 1 mg, Route: IM, Drug form: PDR/INJ, PRN, Dosing Weight 83.182, kg, PRN Blood Gl ucose Results, Start date: 11/27/15 17:23:00 CDT, Duration: 30 day, Stop date: 0 12/27/15 17:22:00 CDT Start Date: 11/27/15 Stop Date: 11/28/15 Status: Discontinued insulin aspart 3 unit, 0.03 mL, Route: SUB-Q, Drug form: SOLN, Bedtime, Dosing Weight 83.182, k g, PRN Blood Glucose Results, Start date: 11/27/15 17:23:00 CDT, Duration: 30 da y, Stop date: 12/27/15 17:22:00 CDT Notes: Roll in palms of hands gently; Do not shake vigorously. (Same as: Alexandro Hamlin)"single patient use only"WASTE: F/P - Black; E - Municipal Trash Bin Stable f or 28 days at room temperature.Expires in days from Date Start Date: 11/27/15 Stop Date: 11/28/15 Status: Discontinued insulin aspart 4 unit, 0.04 mL, Route: SUB-Q, Drug form: SOLN, Bedtime, Dosing Weight 83.182, k g, PRN Blood Glucose Results, Start date: 11/27/15 17:23:00 CDT, Duration: 30 da y, Stop date: 12/27/15 17:22:00 CDT Notes: Roll in palms of hands gently; Do not shake vigorously. (Same as: NovoGERSON Hamlin)"single patient use only"WASTE: F/P - Black; E - Municipal Trash Bin Stable f or 28 days at room temperature.Expires in days from Date Start Date: 11/27/15 Stop Date: 11/28/15 Status: Discontinued insulin aspart 1 unit, 0.01 mL, Route: SUB-Q, Drug form: SOLN, Bedtime, Dosing Weight 83.182, k g, PRN Blood Glucose Results, Start date: 11/27/15 17:23:00 CDT, Duration: 30 da y, Stop date: 12/27/15 17:22:00 CDT Notes: Roll in palms of hands gently; Do not shake vigorously. (Same as: Alexandro Hamlin)"single patient use only"WASTE: F/P - Black; E - Municipal Trash Bin Stable f or 28 days at room temperature.Expires in days from Date Start Date: 11/27/15 Stop Date: 11/28/15 Status: Discontinued insulin aspart 2 unit, 0.02 mL, Route: SUB-Q, Drug form: SOLN, Bedtime, Dosing Weight 83.182, k g, PRN Blood Glucose Results, Start date: 11/27/15 17:23:00 CDT, Duration: 30 da y, Stop date: 12/27/15 17:22:00 CDT Notes: Roll in palms of hands gently; Do not shake vigorously. (Same as: Alexandro Hamlin)"single patient use only"WASTE: F/P - Black; E - Municipal Trash Bin Stable f or 28 days at room temperature.Expires in days from Date Start Date: 11/27/15 Stop Date: 11/28/15 Status: Discontinued insulin aspart 4 unit, 0.04 mL, Route: SUB-Q, Drug form: SOLN, TID-Before Meals, Dosing Weight 83.182, kg, PRN Blood Glucose Results, Start date: 11/27/15 17:23:00 CDT, Durati on: 30 day, Stop date: 12/27/15 17:22:00 CDT Notes: Roll in palms of hands gently; Do not shake vigorously. (Same as: Alexandro Hamlin)"single patient use only"WASTE: F/P - Black; E - Municipal Trash Bin Stable f or 28 days at room temperature.Expires in days from Date Start Date: 11/27/15 Stop Date: 11/28/15 Status: Discontinued insulin aspart 5 unit, 0.05 mL, Route: SUB-Q, Drug form: SOLN, TID-Before Meals, Dosing Weight 83.182, kg, PRN Blood Glucose Results, Start date: 11/27/15 17:23:00 CDT, Durati on: 30 day, Stop date: 12/27/15 17:22:00 CDT Notes: Roll in palms of hands gently; Do not shake vigorously. (Same as: Alexandro Hamlin)"single patient use only"WASTE: F/P - Black; E - Municipal Trash Bin Stable f or 28 days at room temperature.Expires in days from Date Start Date: 11/27/15 Stop Date: 11/28/15 Status: Discontinued insulin aspart 1 unit, 0.01 mL, Route: SUB-Q, Drug form: SOLN, TID-Before Meals, Dosing Weight 83.182, kg, PRN Blood Glucose Results, Start date: 11/27/15 17:23:00 CDT, Durati on: 30 day, Stop date: 12/27/15 17:22:00 CDT Notes: Roll in palms of hands gently; Do not shake vigorously. (Same as: Alexandro Hamlin)"single patient use only"WASTE: F/P - Black; E - Municipal Trash Bin Stable f or 28 days at room temperature.Expires in days from Date Start Date: 11/27/15 Stop Date: 11/28/15 Status: Discontinued insulin aspart 3 unit, 0.03 mL, Route: SUB-Q, Drug form: SOLN, TID-Before Meals, Dosing Weight 83.182, kg, PRN Blood Glucose Results, Start date: 11/27/15 17:23:00 CDT, Durati on: 30 day, Stop date: 12/27/15 17:22:00 CDT Notes: Roll in palms of hands gently; Do not shake vigorously. (Same as: Alexandro Hamlin)"single patient use only"WASTE: F/P - Black; E - Municipal Trash Bin Stable f or 28 days at room temperature.Expires in days from Date Start Date: 11/27/15 Stop Date: 11/28/15 Status: Discontinued insulin aspart 2 unit, 0.02 mL, Route: SUB-Q, Drug form: SOLN, TID-Before Meals, Dosing Weight 83.182, kg, PRN Blood Glucose Results, Start date: 11/27/15 17:23:00 CDT, Durati on: 30 day, Stop date: 12/27/15 17:22:00 CDT Notes: Roll in palms of hands gently; Do not shake vigorously. (Same as: Alexandro Hamlin)"single patient use only"WASTE: F/P - Black; E - Municipal Trash Bin Stable f or 28 days at room temperature.Expires in days from Date Start Date: 11/27/15 Stop Date: 11/28/15 Status: Discontinued Levothroid 50 microgram, 1 tab, Route: PO, Drug form: TAB, Q6AM, Dosing Weight 83.15, kg, S tart date: 11/29/15 6:00:00 CDT, Duration: 30 day, Stop date: 12/28/15 6:00:00 C DT Notes: Take 1 hour before or 2 hours after meal; Enteral feeds may interefere wi th the absorption of this medication.(Same as:Levothroid, Synthroid) Start Date: 11/29/15 Stop Date: 11/28/15 Status: Canceled LORazepam 1 mg, 1 tab, Route: PO, Drug form: TAB, Bedtime, Dosing Weight 83.15, kg, Start date: 11/28/15 21:00:00 CDT, Duration: 30 day, Stop date: 12/27/15 21:00:00 CDT Notes: (Same as: Ativan) Start Date: 11/28/15 Stop Date: 11/28/15 Status: Canceled losartan 50 mg, 1 tab, Route: PO, Drug form: TAB, Daily, Dosing Weight 83.15, kg, Start d ate: 11/29/15 9:00:00 CDT, Duration: 30 day, Stop date: 12/28/15 9:00:00 CDT Notes: (Same as: Angie) Start Date: 11/29/15 Stop Date: 11/28/15 Status: Canceled morphine Sulfate 4 mg, 2 mL, Route: IVP, Drug form: INJ, Q4H, Dosing Weight 83.182, kg, PRN Pain Score 7-10, Start date: 11/27/15 17:36:00 CDT, Duration: 30 day, Stop date: 12/03 11/16 17:35:00 CDT Notes: (Same as:MORPhine Sulfate) Start Date: 11/27/15 Stop Date: 11/28/15 Status: Discontinued NS (Bolus) IV 1,000 mL, 1,000 ml/hr, Infuse Over: 1 hr, Route: IV, ONCE, Priority: STAT, Dosin g Weight 83.182 kg, Start date: 11/27/15 13:00:00 CDT, Duration: 1 doses or time s, Stop date: 11/27/15 13:00:00 CDT Start Date: 11/27/15 Stop Date: 11/27/15 Status: Completed ondansetron 4 mg, 2 mL, Route: IVP, Drug form: INJ, Q6H, Dosing Weight 83.182, kg, PRN Nause a & Vomiting, Start date: 11/27/15 17:36:00 CDT, Duration: 30 day, Stop date: 12/27/15 17:35:00 CDT Notes: (Same as: Bandar) MEDICATION WASTE Product Size: 4 mgProduct Was jocelynn: ___ mg Start Date: 11/27/15 Stop Date: 11/28/15 Status: Discontinued Protonix 40 mg, 1 tab, Route: PO, Drug form: ECTAB, Before Dinner, Dosing Weight 83.15, k g, Start date: 11/28/15 16:30:00 CDT, Duration: 30 day, Stop date: 12/27/15 16:3 0:00 CDT Notes: Tablet should not be chewed or crushed.(Same as: Protonix) Start Date: 11/28/15 Stop Date: 11/28/15 Status: Canceled Protonix 40 mg, Route: IV, Drug form: INJ, Daily, Dosing Weight 83.182, kg, Start date: 0 11/28/15 9:00:00 CDT, Duration: 30 day, Stop date: 12/27/15 9:00:00 CDT Notes: For IV push reconstitute with 10 ml 0.9% sodium chloride and push over 2 minutes. (Same as: Protonix) Start Date: 11/28/15 Stop Date: 11/28/15 Status: Voided With Results Protonix 40 mg oral enteric coated tablet 40 mg, PO, Before Dinner, # 30 tab, 0 Refill(s) Start Date: 11/28/15 Status: Ordered Rocephin + Sodium Chloride 0.9% IV 100 mL 1 gm, Route: IVPB, [id number], Dosing Weight 83.15, kg, Start date: 11/28/15 10:00: 00 CDT, Duration: 30 day, Stop date: 12/27/15 10:00:00 CDT Notes: (Same As: Rocephin).Use with 100 mL NS and infuse over 30 min MEDICA TION WASTE Product Size: 1000 mgProduct Wasted: ___ mg Start Date: 11/28/15 Stop Date: 11/28/15 Status: Discontinued Saline Flush 0.9% 10 ml, Route: IVP, Drug Form: INJ, Dosing Weight 83.182, kg, PRN, PRN Line Flush , Start date: 11/27/15 17:36:00 CDT, Duration: 30 day, Stop date: 12/27/15 17:35 :00 CDT Notes: (Same as: BD Posiflush) Start Date: 11/27/15 Stop Date: 11/28/15 Status: Discontinued Sodium Chloride 0.9% IV 1,000 mL 1,000 mL, Rate: 125 ml/hr, Infuse over: 8 hr, Route: IV, Dosing Weight 83.182 kg , Total Volume: 1,000, Start date: 11/27/15 17:21:00 CDT, Duration: 30 day, Stop date: 12/27/15 17:20:00 CDT Start Date: 11/27/15 Stop Date: 11/28/15 Status: Discontinued Sodium Chloride 0.9% IV 1000 mL 1,000 mL, Rate: 125 ml/hr, Infuse over: 8 hr, Route: IV, Dosing Weight 83.182 kg , Total Volume: 1,000, Start date: 11/27/15 17:36:00 CDT, Duration: 30 day, Stop date: 12/27/15 17:35:00 CDT Start Date: 11/27/15 Stop Date: 11/27/15 Status: Deleted Zofran 4 mg, 2 mL, Route: IVP, Drug form: INJ, ONCE, Dosing Weight 83.182, kg, Priority : STAT, Start date: 11/27/15 16:44:00 CDT, Stop date: 11/27/15 16:44:00 CDT Notes: (Same as: Zofran) MEDICATION WASTE Product Size: 4 mgProduct Was jocelynn: ___ mg Start Date: 11/27/15 Stop Date: 11/27/15 Status: Completed Zofran 4 mg, 2 mL, Route: IV, Drug form: INJ, Q4H, Dosing Weight 83.182, kg, PRN as nee ded for nausea/vomiting, Start date: 11/27/15 17:21:00 CDT, Duration: 30 day, St op date: 12/27/15 17:20:00 CDT Notes: (Same as: Zofran) MEDICATION WASTE Product Size: 4 mgProduct Was jocelynn: ___ mg Start Date: 11/27/15 Stop Date: 11/28/15 Status: Discontinued Zofran 4 mg, Route: IVP, Drug form: INJ, ONCE, Dosing Weight 83.182, kg, Priority: STAT , Start date: 11/27/15 13:00:00 CDT, Stop date: 11/27/15 13:00:00 CDT Start Date: 11/27/15 Stop Date: 11/27/15 Status: Completed Results ELECTROLYTES Most recent to 1 oldest [Reference Range]: Sodium Lvl [135-145 136 mEq/L mEq/L] (11/27/15 12:56 PM) Potassium Lvl 4.0 mEq/L [3.5-5.1 mEq/L] (11/27/15 12:56 PM) Chloride Lvl [95-109 104 mEq/L mEq/L] (11/27/15 12:56 PM) CO2 [24-32 mEq/L] 22 mEq/L *LOW* (11/27/15 12:56 PM) AGAP [10.0-20.0 14.0 mEq/L mEq/L] (11/27/15 12:56 PM) CHEM PANEL Most recent to 1 oldest [Reference Range]: Creatinine Lvl 0.76 mg/dL [0.50-1.40 mg/dL] (11/27/15 12:56 PM) eGFR 89 mL/min/1.73m2 1 *NA* (11/27/15:56 PM) BUN [7-22 mg/dL] 10 mg/dL (11/27/15 12:56 PM) Glucose Lvl [70-99 186 mg/dL mg/dL] *HI* (11/27/15 12:56 PM) Calcium Lvl 8.8 mg/dL [8.5-10.5 mg/dL] (11/27/15 12:56 PM) Magnesium Lvl 1.9 mg/dL [1.8-2.4 mg/dL] (11/27/15 12:56 PM) 1Result Comment: The eGFR is calculated [...] be mul tiplied by the estimated BMI. SPECIAL CHEMISTRY Most recent to 1 oldest [Reference Range]: Hgb A1C [<=5.6 %] 6.1 % *HI* (11/27/15 12:56 PM) HEMATOLOGY Most recent to 1 oldest [Reference Range]: WBC [3.7-10.4 K/CMM] 9.9 K/CMM (11/27/15 12:56 PM) RBC [4.20-5.40 4.84 M/CMM M/CMM] (11/27/15 12:56 PM) Hgb [12.0-16.0 g/dL] 13.1 g/dL (11/27/15 12:56 PM) Hct [36.0-48.0 %] 39.2 % (11/27/15 12:56 PM) MCV [80.0-98.0 fL] 80.9 fL (11/27/15 12:56 PM) MCH [27.0-31.0 pg] 27.0 pg (11/27/15 12:56 PM) MCHC [32.0-36.0 33.4 g/dL g/dL] (11/27/15 12:56 PM) RDW [11.5-14.5 %] 13.5 % (11/27/15 12:56 PM) Platelet [133-450 220 K/CMM K/CMM] (11/27/15 12:56 PM) MPV [7.4-10.4 fL] 7.5 fL (11/27/15 12:56 PM) Segs [45.0-75.0 %] 69.2 % (11/27/15 12:56 PM) Lymphocytes 23.4 % [20.0-40.0 %] (11/27/15 12:56 PM) Monocytes [2.0-12.0 5.8 % %] (11/27/15 12:56 PM) Eosinophils [0.0-4.0 0.7 % %] (11/27/15 12:56 PM) Basophils [0.0-1.0 0.9 % %] (11/27/15 12:56 PM) Segs-Bands # 6.8 K/CMM [1.5-8.1 K/CMM] (11/27/15 12:56 PM) Lymphocytes # 2.3 K/CMM [1.0-5.5 K/CMM] (11/27/15 12:56 PM) Monocytes # [0.0-0.8 0.6 K/CMM K/CMM] (11/27/15 12:56 PM) Eosinophils # 0.1 K/CMM [0.0-0.5 K/CMM] (11/27/15 12:56 PM) Basophils # [0.0-0.2 0.1 K/CMM K/CMM] (11/27/15 12:56 PM) Immunizations No data available for this section [...]
--- OUTSIDE RECORDS SUMMARY | 2019-01-02 13:31 | XMS REPORT | Summary of Care ---
Author Author [facility] Organization [facility] Address Unknown Phone Unavailable Encounter SANIYA Coleman(PATRICIA) [id number] Date(s): 09/30/15 - 10/01/15 [facility] [address] [place] [address]- [phone] Discharge Diagnosis: Headache, classical migraine Discharge Diagnosis: Abdominal pain, acute, epigastric Discharge Diagnosis: Recurrent seizures Discharge Disposition: Home Attending Physician: Hernan Rios MD Vital Signs 1 2 3 Most recent to oldest [Reference Range]: 175.26 cm (09/30/15 6:38 PM) Height 98.0 DegF (10/01/15 3:43 AM) 98.1 DegF (10/01/15 1:33 AM) 99.2 DegF *HI* (09/30/15 6:38 PM) Temperature Oral [96.4-99.1 DegF] 129/92 mmHg (10/01/15 3:43 AM) 149/94 mmHg *HI* (10/01/15 1:33 AM) 143/81 mmHg *HI* (09/30/15 10:55 PM) Blood Pressure [90-140/60-90 mmHg] 17 BRMIN (10/01/15 3:43 AM) 21 BRMIN *HI* (10/01/15 1:33 AM) 16 BRMIN (09/30/15 10:55 PM) Respiratory Rate [14-20 BRMIN] 85 bpm (09/30/15 6:38 PM) Peripheral Pulse Rate [60-100 bpm] 81.818 kg (09/30/15 6:38 PM) Weight 26.64 m2 (09/30/15 6:38 PM) Body Mass Index Problem List Condition Effective Dates Status Health Status Informant Anxiety disorder1, 2 Active Benign Active hypertension3, 4 Cervical 10/15/13 Active spondylosis5, 6 Cobalamin 10/15/13 Active deficiency7, 8 Cyst(Confirmed)9 Resolved Diabetes Resolved mellitus(Confirmed) Diabetic - Active cooperative patient(Confirmed) Mhedfvuemzxrsz76, 11 10/22/13 Active Hypertension(Confirm Resolved ed) Hypertension(Confirm Resolved ed) Megaloblastic anemia 10/15/13 Active due to folate mapgytsxmr79, 13 Meniscus Active tear(Confirmed) Ktxydhlo78, 15 10/15/13 Active Positive 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 24Data migrated from [facility] on 12/03/14. 25Data migrated from [facility] on 12/03/14. Allergies, Adverse Reactions, Alerts Substance Reaction Severity Status azithromycin1 Active codeine sulfate Active erythromycin Active sulfa drugs2 Active 1Data migrated from [facility] on 10/29/14. Originally documented as ZITHROMAX. rash 2Data migrated from [facility] on 01/30/15. Originally documented as SULFA. Rash Medications Ativan 1 mg, Route: IVP, Drug form: INJ, ONCE, Dosing Weight 81.818, kg, Priority: STAT , Start date: 09/30/15 23:23:00, Stop date: 09/30/15 23:23:00 Start Date: 09/30/15 Stop Date: 10/01/15 Status: Completed Dilaudid 1 mg, Route: IVP, ONCE, Dosing Weight 81.818, kg, Priority: STAT, Start date: 23:23:00, Stop date: 09/30/15 23:23:00 Start Date: 09/30/15 Stop Date: 10/01/15 Status: Completed DuoNeb inhalation solution 3 ml, Route: INHALATION, Drug Form: SOLN, Dosing Weight 81.818, kg, ONCE, Start date: 09/30/15 18:44:00, Stop date: 09/30/15 18:44:00 Start Date: 09/30/15 Stop Date: 09/30/15 Status: Completed promethazine 25 mg, Route: IM, ONCE, Dosing Weight 81.818, kg, Priority: STAT, Start date: 3:46:00, Stop date: 10/01/15 3:46:00 Start Date: 10/01/15 Stop Date: 10/01/15 Status: Completed Valium 5 mg oral tablet 5 mg, PO, Q8-12H, PRN Anxiety / dizziness, X 7 day, # 20 tab, 0 Refill(s) Start Date: 10/01/15 Stop Date: 10/08/15 Status: Ordered Zofran 8 mg, Route: IVP, Drug form: INJ, ONCE, Dosing Weight 81.818, kg, Priority: STAT , Start date: 09/30/15 23:23:00, Stop date: 09/30/15 23:23:00 Start Date: 09/30/15 Stop Date: 10/01/15 Status: Completed Results ELECTROLYTES Most recent to 1 oldest [Reference Range]: Sodium Lvl [135-145 137 mEq/L mEq/L] (09/30/15 6:49 PM) Potassium Lvl 3.7 mEq/L [3.5-5.1 mEq/L] (09/30/15 6:49 PM) Chloride Lvl [95-109 102 mEq/L mEq/L] (09/30/15 6:49 PM) CO2 [24-32 mEq/L] 27 mEq/L (09/30/15 6:49 PM) AGAP [10.0-20.0 11.7 mEq/L mEq/L] (09/30/15 6:49 PM) CHEM PANEL Most recent to 1 oldest [Reference Range]: Creatinine Lvl 0.82 mg/dL [0.50-1.40 mg/dL] (09/30/15 6:49 PM) eGFR 82 mL/min/1.73m2 1 *NA* (09/30/15 6:49 PM) BUN [7-22 mg/dL] 10 mg/dL (09/30/15 6:49 PM) B/C Ratio [6-25] 12 (09/30/15 6:49 PM) Glucose Lvl [70-99 185 mg/dL mg/dL] *HI* (09/30/15 6:49 PM) Total Protein 7.3 g/dL [6.4-8.4 g/dL] (09/30/15 6:49 PM) Albumin Lvl [3.5-5.0 4.0 g/dL g/dL] (09/30/15 6:49 PM) Globulin [2.0-4.0 3.3 g/dL g/dL] (09/30/15 6:49 PM) A/G Ratio [0.7-1.6] 1.2 (09/30/15 6:49 PM) Calcium Lvl 8.4 mg/dL [8.5-10.5 mg/dL] *LOW* (09/30/15 6:49 PM) ALT [0-65 unit/L] 61 unit/L (09/30/15 6:49 PM) AST [0-37 unit/L] 27 unit/L (09/30/15 6:49 PM) Alk Phos [39-136 87 unit/L unit/L] (09/30/15 6:49 PM) Bili Total [0.2-1.3 0.3 mg/dL mg/dL] (09/30/15 6:49 PM) 1Result Comment: The eGFR is calculated [...] be mul tiplied by the estimated BMI. CARDIAC ENZYMES Most recent to 1 oldest [Reference Range]: Total CK [12-191 87 unit/L unit/L] (09/30/15 6:49 PM) CK MB [0.5-3.6 0.6 ng/mL ng/mL] (09/30/15 6:49 PM) CK MB Index 0.7 [0.0-2.5] (09/30/15 6:49 PM) Troponin-I <0.02 ng/mL [0.00-0.40 ng/mL] (09/30/15 6:49 PM) HEMATOLOGY Most recent to 1 oldest [Reference Range]: WBC [3.7-10.4 K/CMM] 6.8 K/CMM (09/30/15 6:49 PM) RBC [4.20-5.40 4.87 M/CMM M/CMM] (09/30/15 6:49 PM) Hgb [12.0-16.0 g/dL] 13.3 g/dL (09/30/15 6:49 PM) Hct [36.0-48.0 %] 40.0 % (09/30/15 6:49 PM) MCV [80.0-98.0 fL] 82.1 fL (09/30/15 6:49 PM) MCH [27.0-31.0 pg] 27.2 pg (09/30/15 6:49 PM) MCHC [32.0-36.0 33.2 g/dL g/dL] (09/30/15 6:49 PM) RDW [11.5-14.5 %] 14.2 % (09/30/15 6:49 PM) Platelet [133-450 227 K/CMM K/CMM] (09/30/15 6:49 PM) MPV [7.4-10.4 fL] 7.9 fL (09/30/15 6:49 PM) Segs [45.0-75.0 %] 52.4 % (09/30/15 6:49 PM) Lymphocytes 35.7 % [20.0-40.0 %] (09/30/15 6:49 PM) Monocytes [2.0-12.0 8.4 % %] (09/30/15 6:49 PM) Eosinophils [0.0-4.0 2.1 % %] (09/30/15 6:49 PM) Basophils [0.0-1.0 1.4 % %] *HI* (09/30/15 6:49 PM) Segs-Bands # 3.6 K/CMM [1.5-8.1 K/CMM] (09/30/15 6:49 PM) Lymphocytes # 2.4 K/CMM [1.0-5.5 K/CMM] (09/30/15 6:49 PM) Monocytes # [0.0-0.8 0.6 K/CMM K/CMM] (09/30/15 6:49 PM) Eosinophils # 0.1 K/CMM [0.0-0.5 K/CMM] (09/30/15 6:49 PM) Basophils # [0.0-0.2 0.1 K/CMM K/CMM] (09/30/15 6:49 PM) Immunizations No data available for this [...]
--- OUTSIDE RECORDS SUMMARY | 2019-01-02 13:31 | XMS REPORT | Summary of Care ---
Author Author [facility] Organization [facility] Address Unknown Phone Unavailable Encounter HQ [place](FIN) [phone] Date(s): 01/31/16 - 01/31/16 [facility] [address] [place] [address]- [phone] Discharge Diagnosis: Abdominal pain Discharge Diagnosis: Complex partial epileptic seizure Discharge Disposition: Home or Self Care Attending Physician: Jas Beaver MD Vital Signs Most recent to 1 2 oldest [Reference Range]: Height 175.26 cm (01/31/16 5:32 PM) Temperature Oral 97.7 DegF [96.4-99.1 DegF] (01/31/16 5:32 PM) Blood Pressure 141/76 mmHg 154/80 mmHg [90-140/60-90 mmHg] *HI* *HI* (01/31/16 11:48 PM) (01/31/16 5:32 PM) Respiratory Rate 16 BRMIN 18 BRMIN [14-20 BRMIN] (01/31/16 11:48 PM) (01/31/16 5:32 PM) Peripheral Pulse 76 bpm 78 bpm Rate [60-100 bpm] (01/31/16 11:48 PM) (01/31/16 5:32 PM) Weight 85.909 kg (01/31/16 5:32 PM) Body Mass Index 27.97 m2 (01/31/16 5:32 PM) Problem List Condition Effective Dates Status Health Status Informant Anxiety disorder1, 2 Active Benign Active hypertension3, 4 Cervical Active spondylosis(Confirme d) Cervical 10/15/13 Active spondylosis5, 6 Cobalamin Active deficiency(Confirmed ) Cobalamin 10/15/13 Active deficiency7, 8 Cyst(Confirmed)9 Resolved Diabetes Resolved mellitus(Confirmed) Diabetic - Active cooperative patient(Confirmed) Diverticulitis small Active intestine(Confirmed) Epilepsy(Confirmed) Active Hyperlipidemia(Confi Active rmed) Iaksbpusqdrlqi95, 11 10/22/13 Active Hypertension(Confirm Resolved ed) Hypertension(Confirm Resolved ed) Megaloblastic anemia Active due to cobalamin deficiency(Confirmed ) Megaloblastic anemia 10/15/13 Active due to folate irxuinczym35, 13 Meniscus Active tear(Confirmed) Spaoecea89, 15 10/15/13 Active Migraines(Confirmed) Active Positive 11/05/10 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 23Data migrated from [employer] on 6/2/15. 24Data migrated from [employer] on 12/03/14. 25Data migrated from [facility] on 12/03/14. Allergies, Adverse Reactions, Alerts Substance Reaction Severity Status azithromycin1 Active codeine sulfate Active erythromycin Active sulfa drugs2 Active 1Data migrated from [facility] on 10/29/14. Originally documented as ZITHROMAX. rash 2Data migrated from [facility] on 01/30/15. Originally documented as SULFA. Rash Medications ketOROLAC 30 mg/mL injectable solution 30 mg, 1 mL, Route: IVP, Drug form: INJ, ONCE, Dosing Weight 85.909, kg, Priorit y: STAT, Start date: 01/31/16 20:43:00 CDT, Stop date: 01/31/16 20:43:00 CDT Notes: (Same as:Toradol) IV bolus must be given >15 seconds. Give IM administration slowly and deeply into the muscle.Not for use > 4 days MEDICATION WASTE Product Size: 30 mgProduct Wasted: ___ mg Start Date: 01/31/16 Stop Date: 01/31/16 Status: Completed morphine Sulfate 4 mg, 1 mL, Route: IVP, Drug form: INJ, ONCE, Dosing Weight 85.909, kg, Priority : STAT, Start date: 01/31/16 18:39:00 CDT, Stop date: 01/31/16 18:39:00 CDT Notes: (Same as:MORPhine Sulfate) Start Date: 01/31/16 Stop Date: 01/31/16 Status: Completed ondansetron 4 mg, 2 mL, Route: IVP, Drug form: INJ, ONCE, Dosing Weight 85.909, kg, Priority : STAT, Start date: 01/31/16 18:39:00 CDT, Stop date: 01/31/16 18:39:00 CDT Notes: (Same as: Zofran) MEDICATION WASTE Product Size: 4 mgProduct Was jocelynn: ___ mg Start Date: 01/31/16 Stop Date: 01/31/16 Status: Completed Saline Flush 0.9% 10 mL, Route: IVP, Drug Form: INJ, Dosing Weight 85.909, kg, PRN, PRN Line Flush , Start date: 01/31/16 18:39:00 CDT, Duration: 30 day, Stop date: 03/01/16 18:38 :00 CDT Notes: (Same as: BD Posiflush) Start Date: 01/31/16 Stop Date: 02/01/16 Status: Discontinued Sodium Chloride 0.9% (Bolus) IV 1,000 mL, 2,000 ml/hr, Infuse Over: 30 minutes, Route: IV, 1,000, Drug form: INJ , ONCE, Priority: STAT, Dosing Weight 85.909 kg, Start date: 01/31/16 18:39:00 C DT, Duration: 1 doses or times, Stop date: 01/31/16 18:39:00 CDT Start Date: 01/31/16 Stop Date: 01/31/16 Status: Completed tramadol 50 mg oral tablet 50 mg=1 tab, PO, Q6H, PRN Pain, X 10 day, # 12 tab, 0 Refill(s) Start Date: 01/31/16 Stop Date: 02/10/16 Status: Ordered Zofran ODT 4 mg oral tablet, disintegrating 4 mg=1 tab, PO, BID, PRN Nausea and Vomiting, Dissolve tab under tongue, X 5 day , # 10 tab, 0 Refill(s) Start Date: 01/31/16 Stop Date: 02/05/16 Status: Ordered Results ELECTROLYTES Most recent to 1 oldest [Reference Range]: Sodium Lvl [135-145 139 mEq/L mEq/L] (01/31/16 6:24 PM) Potassium Lvl 3.8 mEq/L [3.5-5.1 mEq/L] (01/31/16 6:24 PM) Chloride Lvl [95-109 105 mEq/L mEq/L] (01/31/16 6:24 PM) CO2 [24-32 mEq/L] 24 mEq/L (01/31/16 6:24 PM) AGAP [10.0-20.0 13.8 mEq/L mEq/L] (01/31/16 6:24 PM) CHEM PANEL Most recent to 1 oldest [Reference Range]: Creatinine Lvl 0.67 mg/dL [0.50-1.40 mg/dL] (01/31/16 6:24 PM) eGFR 101 mL/min/1.73m2 1 *NA* (01/31/16 6:24 PM) BUN [7-22 mg/dL] 14 mg/dL (01/31/16 6:24 PM) B/C Ratio [6-25] 21 (01/31/16 6:24 PM) Glucose Lvl [70-99 194 mg/dL mg/dL] *HI* (01/31/16 6:24 PM) Total Protein 7.3 g/dL [6.4-8.4 g/dL] (01/31/16 6:24 PM) Albumin Lvl [3.5-5.0 3.9 g/dL g/dL] (01/31/16 6:24 PM) Globulin [2.0-4.0 3.4 g/dL g/dL] (01/31/16 6:24 PM) A/G Ratio [0.7-1.6] 1.1 (01/31/16 6:24 PM) Calcium Lvl 9.0 mg/dL [8.5-10.5 mg/dL] (01/31/16 6:24 PM) ALT [0-65 unit/L] 42 unit/L (01/31/16 6:24 PM) AST [0-37 unit/L] 28 unit/L (01/31/16 6:24 PM) Alk Phos [39-136 85 unit/L unit/L] (01/31/16 6:24 PM) Bili Total [0.2-1.3 0.4 mg/dL mg/dL] (01/31/16 6:24 PM) Lipase Lvl [73-393 177 unit/L unit/L] (01/31/16 6:24 PM) 1Result Comment: The eGFR is calculated [...] 1 oldest [Reference Range]: UA Turbidity [Clear] Cloudy *ABN* (01/31/16 8:24 PM) UA Color [Yellow] Yellow *NA* (01/31/16 8:24 PM) UA pH [5.0-8.0] 6.5 (01/31/16 8:24 PM) UA Spec Grav 1.015 [<=1.030] (01/31/16 8:24 PM) UA Glucose Negative [Negative] (01/31/16 8:24 PM) UA Blood [Negative] Negative (01/31/16 8:24 PM) UA Ketones Negative [Negative] *NA* (01/31/16 8:24 PM) UA Protein Negative [Negative] (01/31/16 8:24 PM) UA Urobilinogen 0.2 EU/dL [0.1-1.0 EU/dL] (01/31/16 8:24 PM) UA Bili [Negative] Negative *NA* (01/31/16 8:24 PM) UA Leuk Est Negative [Negative] (01/31/16 8:24 PM) UA Nitrite Negative [Negative] (01/31/16 8:24 PM) UA WBC [None Seen 0-2 /HPF /HPF] (01/31/16 8:24 PM) UA RBC [0-2 /HPF] 0-2 /HPF (01/31/16 8:24 PM) UA Bacteria [None Many /HPF Seen /HPF] (01/31/16 8:24 PM) UA Sq Epi [Few /LPF] Occasional /LPF (01/31/16 8:24 PM) HEMATOLOGY Most recent to 1 oldest [Reference Range]: WBC [3.7-10.4 K/CMM] 11.7 K/CMM *HI* (01/31/16 6:24 PM) RBC [4.20-5.40 5.01 M/CMM M/CMM] (01/31/16 6:24 PM) Hgb [12.0-16.0 g/dL] 13.5 g/dL (01/31/16 6:24 PM) Hct [36.0-48.0 %] 40.5 % (01/31/16 6:24 PM) MCV [80.0-98.0 fL] 80.9 fL (01/31/16 6:24 PM) MCH [27.0-31.0 pg] 27.1 pg (01/31/16 6:24 PM) MCHC [32.0-36.0 33.5 g/dL g/dL] (01/31/16 6:24 PM) RDW [11.5-14.5 %] 14.0 % (01/31/16 6:24 PM) Platelet [133-450 275 K/CMM K/CMM] (01/31/16 6:24 PM) MPV [7.4-10.4 fL] 7.9 fL (01/31/16 6:24 PM) Segs [45.0-75.0 %] 69.0 % (01/31/16 6:24 PM) Lymphocytes 23.8 % [20.0-40.0 %] (01/31/16 6:24 PM) Monocytes [2.0-12.0 5.5 % %] (01/31/16 6:24 PM) Eosinophils [0.0-4.0 1.1 % %] (01/31/16 6:24 PM) Basophils [0.0-1.0 0.6 % %] (01/31/16 6:24 PM) Segs-Bands # 8.1 K/CMM [1.5-8.1 K/CMM] (01/31/16 6:24 PM) Lymphocytes # 2.8 K/CMM [1.0-5.5 K/CMM] (01/31/16 6:24 PM) Monocytes # [0.0-0.8 0.6 K/CMM K/CMM] (01/31/16 6:24 PM) Eosinophils # 0.1 K/CMM [0.0-0.5 K/CMM] (01/31/16 6:24 PM) Basophils # [0.0-0.2 0.1 K/CMM K/CMM] (01/31/16 6:24 PM) Immunizations No data available for this [...]
--- OUTSIDE RECORDS SUMMARY | 2019-01-02 13:32 | XMS REPORT | Summary of Care ---
Author Author [facility] Organization [facility] Address Unknown Phone Unavailable Encounter SANIYA Coleman(PATRICIA) [id number] Date(s): 06/28/16 - 07/03/[address] [facility] [address] [employer] provided by [facility] [place] [address]- Discharge Disposition: Home or Self Care Attending Physician: Shell Kruse MD Admitting Physician: Shell Kruse MD Vital Signs 1 2 3 Most recent to oldest [Reference Range]: 175.26 cm (06/28/16 9:32 AM) 175.26 cm (06/28/16 9:30 AM) Height 97.2 DegF (07/02/16 8:00 PM) 97.1 DegF (07/02/16 7:52 AM) 98 DegF (07/01/16 8:30 PM) Temperature Oral [96.4-99.1 DegF] 128/93 mmHg (07/03/16 10:00 AM) 132/84 mmHg (07/02/16 8:00 PM) Blood Pressure [90-140/60-90 mmHg] 103 mmHg (07/02/16 7:52 AM) Systolic Blood Pressure [90-140 mmHg] 70 mmHg (07/02/16 7:52 AM) Diastolic Blood Pressure [60-90 mmHg] 18 BRMIN (07/03/16 10:00 AM) 18 BRMIN (07/03/16 9:16 AM) 16 BRMIN (07/02/16 8:00 PM) Respiratory Rate [14-20 BRMIN] 80 bpm (07/03/16 10:00 AM) 88 bpm (07/02/16 8:00 PM) 75 bpm (07/01/16 8:30 PM) Peripheral Pulse Rate [60-100 bpm] 84.091 kg (06/28/16 9:32 AM) 84.091 kg (06/28/16 9:30 AM) Weight 27.38 m2 (06/28/16 9:32 AM) 27.38 m2 (06/28/16 9:30 AM) Body Mass Index Problem List Condition Effective Dates Status Health Status Informant Anxiety disorder1, 2 Active Benign Active hypertension3, 4 Cervical 10/15/13 Active spondylosis5, 6 Cervical Active spondylosis(Confirme d) Cobalamin Active deficiency(Confirmed ) Cobalamin 10/15/13 Active deficiency7, 8 Cyst(Confirmed)9 Resolved Diabetes Resolved mellitus(Confirmed) Diabetic - Active cooperative patient(Confirmed) Diverticulitis small Active intestine(Confirmed) Epilepsy(Confirmed) Active Hyperlipidemia(Confi Active rmed) Gotfeecyiciven16, 11 10/22/13 Active Hypertension(Confirm Resolved ed) Hypertension(Confirm Resolved ed) Megaloblastic anemia Active due to cobalamin deficiency(Confirmed ) Megaloblastic anemia 10/15/13 Active due to folate lpcvdkvows20, 13 Meniscus Active tear(Confirmed) Jqwtiqiy34, 15 10/15/13 Active Migraines(Confirmed) Active Positive 11/05/10 Active 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 (Same as: Tylenol) Start Date: 06/28/16 Stop Date: 07/03/16 Status: Discontinued Benadryl 50 mg, 1 cap, Route: PO, Drug form: CAP, ONCE, Dosing Weight 84.091, kg, Start d ate: 07/01/16 6:00:00 BEATER ENGINEER, Stop date: 07/01/16 6:00:00 BEATER ENGINEER Notes: (Same as: Benadryl) Start Date: 07/01/16 Stop Date: 07/01/16 Status: Completed Benadryl 50 mg, 1 cap, Route: PO, Drug form: CAP, ONCE, Dosing Weight 84.091, kg, Start d ate: 06/30/16 6:00:00 BEATER ENGINEER, Stop date: 06/30/16 6:00:00 BEATER ENGINEER Notes: (Same as: Benadryl) Start Date: 06/30/16 Stop Date: 06/30/16 Status: Completed Benadryl 50 mg, Route: PO, ONCE, Dosing Weight 84.091, kg, PRN Allergic reaction, Start d ate: 06/30/16 3:00:00 BEATER ENGINEER Start Date: 06/30/16 Stop Date: 06/29/16 Status: Canceled benzonatate PO, TID, 0 Refill(s) Start Date: 06/28/16 Stop Date: 06/28/16 Status: Completed benzonatate 100 mg oral capsule 100 mg=1 cap, PO, take 1- 2 capsules tid as needed for cough Start Date: 06/28/16 Status: Ordered ethanol 30 mL, Route: PO, Drug Form: LIQ, Dosing Weight 84.091, kg, ONCE, Start date: 6:00:00 BEATER ENGINEER, Stop date: 07/01/16 6:00:00 BEATER ENGINEER Notes: "Call 2 hours before next dose due" Start Date: 07/01/16 Stop Date: 07/01/16 Status: Completed folic acid 1 mg, 1 tab, Route: PO, Drug form: TAB, Daily, Dosing Weight 84.091, kg, Start d ate: 06/29/16 9:00:00 BEATER ENGINEER, Duration: 30 day, Stop date: 07/28/16 9:00:00 BEATER ENGINEER, López brink's Own Meds Notes: (Same as: Folvite) Start Date: 06/29/16 Stop Date: 07/03/16 Status: Discontinued gabapentin 300 mg oral capsule 300 mg=1 cap, PO, BID, # 60 cap, 1 Refill(s) Start Date: 07/02/16 Status: Ordered gabapentin 300 mg oral capsule 300 mg, 1 cap, Route: PO, Drug form: CAP, BID, Dosing Weight 84.091, kg, Start d ate: 07/02/16 10:50:00 BEATER ENGINEER, Duration: 30 day, Stop date: 08/01/16 9:00:00 BEATER ENGINEER Notes: (Same as: Neurontin) Start Date: 07/02/16 Stop Date: 07/03/16 Status: Discontinued Janumet XR 50 mg-1000 mg oral tablet, extended release 1 tab, PO, Daily, # 30 tab, 0 Refill(s) Start Date: 06/28/16 Stop Date: 07/28/16 Status: Ordered Janumet XR 50 mg-500 mg oral tablet, extended release 2 tab, PO, QPM, 0 Refill(s) Start Date: 06/28/16 Stop Date: 06/28/16 Status: Discontinued Lipitor 10 mg, 1 tab, Route: PO, Drug form: TAB, Bedtime, Dosing Weight 84.091, kg, Star t date: 06/28/16 21:00:00 BEATER ENGINEER, Duration: 30 day, Stop date: 07/27/16 21:00:00 CS T, Patient's Own Meds Notes: (Same As: Lipitor) Start Date: 06/28/16 Stop Date: 07/03/16 Status: Discontinued Lipitor 10 mg oral tablet 10 mg=1 tab, PO, Bedtime, # 30 tab, 0 Refill(s) Start Date: 06/28/16 Status: Ordered losartan 100 mg, 1 tab, Route: PO, Drug form: TAB, Daily, Dosing Weight 84.091, kg, Start date: 06/29/16 9:00:00 BEATER ENGINEER, Duration: 30 day, Stop date: 07/28/16 9:00:00 BEATER ENGINEER, Patient's Own Meds Notes: (Same as: Sierrazaar) Start Date: 06/29/16 Stop Date: 07/03/16 Status: Discontinued losartan 100 mg oral tablet 100 mg=1 tab, PO, Daily, # 30 tab, 0 Refill(s) Start Date: 06/28/16 Status: Ordered oral alcohol (Beer/Wine) 1 ounce, Route: PO, Drug Form: LIQ, Dosing Weight 84.091, kg, ONCE, Start date: 06/30/16 6:00:00 BEATER ENGINEER, Stop date: 06/30/16 6:00:00 BEATER ENGINEER Notes: "Call 2 hours before next dose due" Start Date: 06/30/16 Stop Date: 06/30/16 Status: Completed oral alcohol (Beer/Wine) 1 ounce, Route: PO, Dosing Weight 84.091, kg, ONCE, Start date: 06/30/16 3:00:00 BEATER ENGINEER, Stop date: 06/30/16 3:00:00 BEATER ENGINEER Start Date: 06/30/16 Stop Date: 06/29/16 Status: Canceled pentafluoropropane-tetrafluoroethane topical 1 spray, Route: TOP, PRN, PRN Procedure, Start date: 06/28/16 10:13:00 BEATER ENGINEER, Dura tion: 30 day, Stop date: 07/28/16 10:12:00 BEATER ENGINEER Start Date: 06/28/16 Stop Date: 06/28/16 Status: Discontinued pneumococcal 23-valent vaccine 0.5 mL, Route: IM, Drug Form: INJ, Daily, Start date: 06/29/16 9:00:00 BEATER ENGINEER, Dura tion: 1 doses or times, Stop date: 06/29/16 9:00:00 BEATER ENGINEER Notes: (Same as: Pneumovax 23) Refrigerate Start Date: 06/29/16 Stop Date: 06/29/16 Status: Completed sucrose 1 mL, Route: PO, Drug Form: LIQ, Dosing Weight 84.091, kg, PRN, PRN Procedure, S tart date: 06/28/16 10:13:00 BEATER ENGINEER, Duration: 3 doses or times, Stop date: Limited # of times Start Date: 06/28/16 Stop Date: 06/28/16 Status: Discontinued tramadol 100 mg, 2 tab, Route: PO, Drug form: TAB, ONCE, Dosing Weight 84.091, kg, Start date: 06/30/16 6:00:00 BEATER ENGINEER, Stop date: 06/30/16 6:00:00 BEATER ENGINEER Notes: Not to exceed 400mg/day. (Same As: Ultram) Start Date: 06/30/16 Stop Date: 06/30/16 Status: Completed Ultram 50 mg oral tablet 100 mg, 2 tab, Route: PO, Drug form: TAB, ONCE, Dosing Weight 84.091, kg, Start date: 07/01/16 6:00:00 BEATER ENGINEER, Stop date: 07/01/16 6:00:00 BEATER ENGINEER Notes: Not to exceed 400mg/day. (Same As: Ultram) Start Date: 07/01/16 Stop Date: 07/01/16 Status: Completed Ultram 50 mg oral tablet 2 tab, Route: PO, Drug form: TAB, ONCE, Dosing Weight 84.091, kg, PRN Pain Score 1-3, Start date: 06/30/16 3:00:00 BEATER ENGINEER Start Date: 06/30/16 Stop Date: 06/29/16 Status: Canceled Versed 1 mg, 1 mL, Route: IV, Drug form: INJ, ONCALL, Dosing Weight 84.091, kg, Start d ate: 06/28/16 10:00:00 BEATER ENGINEER, Duration: 30 day, Stop date: 07/28/16 9:59:00 BEATER ENGINEER Notes: (Same as: Versed) MEDICATION WASTE Product Size: 2 mgProduct Was jocelynn: ___ mg Start Date: 06/28/16 Stop Date: 06/28/16 Status: Completed VIMOVO 500 mg-20 mg oral enteric coated tablet 1 tab, PO, BID, # 60 tab Start Date: 06/28/16 Status: Ordered Zofran ODT 4 mg, 1 tab, Route: PO, Drug form: TABDIS, ONCE, Dosing Weight 84.091, kg, Start date: 07/02/16 20:41:00 BEATER ENGINEER, Stop date: 07/02/16 20:41:00 BEATER ENGINEER Notes: (Same as: Zofran ODT) Start Date: 07/02/16 Stop Date: 07/02/16 Status: Completed Results ELECTROLYTES Most recent to 1 oldest [Reference Range]: Sodium Lvl [135-145 141 mEq/L mEq/L] (06/28/16 11:08 AM) Potassium Lvl 4.2 mEq/L [3.5-5.1 mEq/L] (06/28/16 11:08 AM) Chloride Lvl [95-109 107 mEq/L mEq/L] (06/28/16 11:08 AM) CO2 [24-32 mEq/L] 25 mEq/L (06/28/16 11:08 AM) AGAP [10.0-20.0 13.2 mEq/L mEq/L] (06/28/16 11:08 AM) CHEM PANEL Most recent to 1 oldest [Reference Range]: Creatinine Lvl 0.74 mg/dL [0.50-1.40 mg/dL] (06/28/16 11:08 AM) eGFR 93 mL/min/1.73m2 1 *NA* (06/28/16 11:08 AM) BUN [7-22 mg/dL] 19 mg/dL (06/28/16 11:08 AM) B/C Ratio [6-25] 26 *HI* (06/28/16 11:08 AM) Glucose Lvl [70-99 135 mg/dL mg/dL] *HI* (06/28/16 11:08 AM) Total Protein 7.1 g/dL [6.4-8.4 g/dL] (06/28/16 11:08 AM) Albumin Lvl [3.5-5.0 4.0 g/dL g/dL] (06/28/16 11:08 AM) Globulin [2.7-4.2 3.1 g/dL g/dL] (06/28/16 11:08 AM) A/G Ratio [0.7-1.6] 1.3 (06/28/16 11:08 AM) Calcium Lvl 9.2 mg/dL [8.5-10.5 mg/dL] (06/28/16 11:08 AM) ALT [0-65 unit/L] 40 unit/L (06/28/16 11:08 AM) AST [0-37 unit/L] 22 unit/L (06/28/16 11:08 AM) Alk Phos [39-136 80 unit/L unit/L] (06/28/16 11:08 AM) Bili Total [0.2-1.3 0.4 mg/dL mg/dL] (06/28/16 11:08 AM) 1Result Comment: The eGFR is calculated [...] 1 oldest [Reference Range]: WBC [3.7-10.4 K/CMM] 7.4 K/CMM (06/28/16 11:08 AM) RBC [4.20-5.40 5.10 M/CMM M/CMM] (06/28/16 11:08 AM) Hgb [12.0-16.0 g/dL] 13.8 g/dL (06/28/16 11:08 AM) Hct [36.0-48.0 %] 40.8 % (06/28/16 11:08 AM) MCV [80.0-98.0 fL] 80.1 fL (06/28/16 11:08 AM) MCH [27.0-31.0 pg] 27.1 pg (06/28/16:08 AM) MCHC [32.0-36.0 33.8 g/dL g/dL] (06/28/16 11:08 AM) RDW [11.5-14.5 %] 14.0 % (06/28/16:08 AM) Platelet [133-450 223 K/CMM K/CMM] (06/28/16 11:08 AM) MPV [7.4-10.4 fL] 8.1 fL (06/28/16 11:08 AM) Segs [45.0-75.0 %] 51.5 % (06/28/16 11:08 AM) Lymphocytes 38.5 % [20.0-40.0 %] (06/28/16 11:08 AM) Monocytes [2.0-12.0 6.5 % %] (06/28/16 11:08 AM) Eosinophils [0.0-4.0 2.6 % %] (06/28/16 11:08 AM) Basophils [0.0-1.0 0.9 % %] (06/28/16 11:08 AM) Segs-Bands # 3.8 K/CMM [1.5-8.1 K/CMM] (06/28/16 11:08 AM) Lymphocytes # 2.9 K/CMM [1.0-5.5 K/CMM] (06/28/16 11:08 AM) Monocytes # [0.0-0.8 0.5 K/CMM K/CMM] (06/28/16 11:08 AM) Eosinophils # 0.2 K/CMM [0.0-0.5 K/CMM] (06/28/16 11:08 AM) Basophils # [0.0-0.2 0.1 K/CMM K/CMM] (06/28/16 11:08 AM) Immunizations Given and Recorded Vaccine Date [...] Counseling Yes1 1occasional cigarettes Assessment and Plan Extracted from: Title: EMU Discharge Summary Author: Sharon Borrero Date: 07/03/16 DO EMU Discharge Summary Referring Physician: Dr. Uriah [...] Other Medical History: T2DM HLD diverticulitis Family & Social History: mother - scleroderma, Social EtOH [...] - PERRL, fundi benign, aligned NOSE - Coco nasal turbinates, septum is midline. No drainage [...] and spine, normal gait. NEURO: II-XII intact, DTR s 2/2, Good tone, good strength but 4/5 [...] testing and will F/U with Dr. Uriah Borrero, DO Neurophysiology Fellow, Department of Neurology [facility] Pager # [phone] I have discussed case, A/P with attending [...] asked to avoid. Shell Kruse MD R56.9 [id number] Extracted from: Title: EMU Progress Note Author: Sharon Borrero Date: 07/02/16 DO Subjective: No events overnight, however EEG was [...] 100mg daily Janumet XR 50-1000 BID Previous AED s: lamictal - unable to achieve therapuetic dose [...] Allergies: sulfa drugs, codeine, azithromycin/erythromycin Physical Exam: VitalsTmp(F)Tmp(C)[id number] 07/02 07:5297.136.51lkjc846/70---6716--------- 07/01 20:347093.94aakp184/79---[id number]------ 07/01 07:5297.836.47lqvs468/84---8016--------- 06/30 20:0097.736.16mkjw645/85---[id number]------ 24 Hr Tmax: 98F (36.67c) at 07/01 20:3024 Hr Tmin: 97.1F (36.17c) at 07/02 07:52 36 Hr Tmax: 98F (36.67c) at 07/01 20:3036 Hr Tmin: 97.1F (36.17c) at 07/02 07:52 APPEARANCE - Active, alert, well developed, well nourished. HEAD - Normocephalic and atraumatic EARS - Canals clear. EYES - PERRL, fundi benign, aligned NOSE - Coco nasal turbinates, septum is midline. No drainage [...] and spine, normal gait. NEURO: II-XII intact, DTR s 2/2, Good tone, good strength but 4/5 [...] Borrero DO Neurophysiology Fellow, Department of Neurology [facility] Pager # [phone] I have discussed A/P with attending physician [...] Shell Kruse MD EMU ATTENDING Codes: R56.9 [id number] Extracted from: Title: Infection Control Isolation Author: Ike Ballesteros Date: 07/02/16 Alert ISOLATION ALERT This patient has a history [...] any questions. We can be reached at [phone]. Extracted from: Title: EMU H&P Author: Kiet Farley Date: 06/28/16 EMU History and Physical Referring [...] 100mg daily Janumet XR 50-1000 BID Previous AED s: lamictal - unable to achieve therapuetic dose [...] - PERRL, fundi benign, aligned NOSE - Coco nasal turbinates, septum is midline. No drainage [...] and spine, normal gait. NEURO: II-XII intact, DTR s 2/2, Good tone, good strength but 4/5 [...] LFTs Kiet Farley MD Neurology Prelim Pager [phone] [id number] [id number] ATTENDING NOTE: Patient seen and Dr. Farley's not reviewed. I agree with documented plan [...] in AM Shell Kruse MD EMU ATTENDING [id number], R56.9
--- OUTSIDE RECORDS SUMMARY | 2019-01-02 13:32 | XMS REPORT ---
[facility] Address Unknown Phone Unavailable Care Team Providers Care Meter Reader Chief Name Role Phone Unavailable Unavailable Payers Payer Name Policy Type Policy Number Effective Date Expiration Date Problems This patient has no known problems. Allergies, Adverse Reactions, Alerts Allergy Name Allergy Type Status Severity Reaction(s) Onset Date Inactive Date Treating Clinician Comments Sulfa (Sulfonamide Antibiotics) DA Active 2018-07-27 00:00:00 codeine DA Active U 2018-07-27 00:00:00 adhesive DA Active U 2018-07-27 00:00:00 azithromycin DA Active SV 2018-07-27 00:00:00 Sulfa (Sulfonamide Antibiotics) DA Active SV 2016-07-09 00:00:00 codeine DA Active U 2016-07-09 00:00:00 adhesive DA Active U 2016-07-09 00:00:00 azithromycin DA Active SV 2016-07-09 00:00:00 Medications This patient has no known medications. Results Test Description Test Time Test Comments Text Results Atomic Results Result Comments BASIC METABOLIC PANEL 2018-07-27 10:07:00 SODIUM (test code=NA) 140 mEq/L 134-147 POTASSIUM (test code=K) 3.7 mEq/L 3.4-5.0 CHLORIDE (test code=CL) 107 mEq/L 100-108 CARBON DIOXIDE (test code=CO2) 24 mEq/L 21-33 ANION GAP (test code=GAP) 13 0-20 GLUCOSE (test code=GLU) 184 mg/dL 70-110 BLOOD UREA NITROGEN (test code=BUN) 18 mg/dL 7-18 GLOMERULAR FILTRATION RATE (test code=GFR) 64.8 90-95 Units of measure=ml/min/1.73 m2 CREATININE (test code=CREAT) 0.9 mg/dL 0.6-1.3 CALCIUM (test code=CA) 9.2 mg/dL 8.0-10.5 CBC W/AUTO [id number] 10:00:00* Test Item Value Reference Range Comments WHITE BLOOD CELL (test code=WBC) 7.43 x10 3/uL 4.5-11.0 RED BLOOD CELL (test code=RBC) 4.86 x10 6/uL 3.54-5.02 HEMOGLOBIN (test code=HGB) 13.7 g/dL 11.0-15.0 HEMATOCRIT (test code=HCT) 41.8 % 33.0-45.0 MEAN CELL VOLUME (test code=MCV) 86.0 fL 81.0-99.0 MEAN CELL HGB (test code=MCH) 28.2 pg 27.0-33.0 MEAN CELL HGB CONCETRATION (test code=MCHC) 32.8 g/dL 33.0-37.0 RED CELL DISTRIBUTION WIDTH CV (test code=RDW) 12.5 % 11.5-14.5 RED CELL DISTRIBUTION WIDTH SD (test code=RDW-SD) 39.4 fL 37.0-54.0 PLATELET COUNT (test code=PLT) 261 x10 3/uL 150-400 MEAN PLATELET VOLUME (test code=MPV) 9.7 fL 7.0-9.0 NEUTROPHIL % (test code=NT%) 60.8 % 56.0-77.0 IMMATURE GRANULOCYTE % (test code=IG%) 0.5 % 0.0-2.0 LYMPHOCYTE % (test code=LY%) 29.6 % 14.0-32.0 MONOCYTE % (test code=MO%) 6.3 % 4.8-9.0 EOSINOPHIL % (test code=EO%) 2.0 % 0.3-3.7 BASOPHIL % (test code=BA%) 0.8 % 0.0-2.0 NUCLEATED RBC % (test code=NRBC%) 0.0 % 0-0 NEUTROPHIL # (test code=NT#) 4.51 x10 3/uL 2.0-7.6 IMMATURE GRANULOCYTE # (test code=IG#) 0.04 x10 3/uL 0.00-0.03 LYMPHOCYTE # (test code=LY#) 2.20 x10 3/uL 1.0-3.8 MONOCYTE # (test code=MO#) 0.47 x10 3/uL 0.1-0.8 EOSINOPHIL # (test code=EO#) 0.15 x10 3/uL 0.0-0.2 BASOPHIL # (test code=BA#) 0.06 x10 3/uL 0.0-0.2 NUCLEATED RBC # (test code=NRBC#) 0.00 x10 3/uL 0.0-0.1 MANUAL DIFF REQUIRED (test code=MDIFF) NO
[2019-01-02] MEDS ORDERED: SODIUM CHLORIDE 0.9% 1000ML 1,000 ML IV ONE (14:30)
[2019-01-02] MEDS ORDERED: KETOROLAC TROMETHAMINE 30 MG/ML VIAL IV NR (14:30)
[2019-01-02] MEDS ORDERED: KETOROLAC TROMETHAMINE 30 MG/ML VIAL ONE (14:38)
[2019-01-02] MEDS ORDERED: SODIUM CHLORIDE 0.9% 1000ML 1,000 ML ONE (14:39)
--- NOTE | 2019-01-02 15:13 | Diagnostic Imaging Report ---
PROCEDURE:CT ABD/PEL WO CONTRAST-HOPD COMPARISON:None. INDICATIONS:Right side flank pain x3 days TECHNIQUE: Scanning of the abdomen and pelvis was performed without IV or oral contrast material. Multiplanar coronal and sagittal reformations were accomplished. Low-dose technique utilizing renal stone protocol was performed to maintain the lowest as possible to the patient. DLP: 799.44 mGy-cm FINDINGS:Evaluation of the lower thorax reveals no abnormality. Liver: There is no mass identified. Clips in the gallbladder fossa from prior cholecystectomy. Spleen: No splenomegaly or mass. Pancreas: No evidence of cystic or solid mass. Kidneys: No hydronephrosis. No calcified renal or ureteral stones. Adrenal glands: No nodules. Vessels: Vascular calcifications. Stomach: No wall thickening. A gastric lap band is in appropriate location with dilatation proximal involving the stomach and esophagus. Retroperitoneum: No free fluid or adenopathy identified. Lymph nodes: There is no lymphadenopathy. GI tract: Sigmoid colon diverticulosis. Bones: No lytic or sclerotic process. CONCLUSION: 1. No acute abnormality within the abdomen or pelvis. 2. Sigmoid colon diverticulosis. 3. No calcified renal or ureteral stones. Suresh Hamilton D.O. Dictated by: Suresh Hamilton D.O. on 01/02/2019 at 15:17 Electronically approved by: Suresh Hamilton D.O. on 01/02/2019 at 15:17
[2019-01-02] MEDS ORDERED: ONDANSETRON HCL INJ 2MG/ML 2ML 2 MG/ML VIAL IV NR (15:32)
[2019-01-02] MEDS ORDERED: MORPHINE SULFATE INJ 4 MG/ML INJ 1ML ONE (15:42)
[2019-01-02] MEDS ORDERED: MORPHINE SULFATE INJ 4 MG/ML INJ 1ML IV NR (15:45)
[2019-01-02 16:00] VITALS: BP 147/82
== END 2019-01-02 16:30 | disposition home or self-care (01) ==
LOC: FSED 13:22
DX: R10.31 Right lower quadrant pain (principal); R11.0 Nausea; M54.5 Low back pain
CPT/HCPCS: 74176; 80053; 80076; 81003; 85025; 99284; J1885; J2270; J2405; J7030

== ENCOUNTER 2019-08-15 09:47 | Emergency (ER) | payer OTHER ==
[~2019-08-15] VITALS: Ht 175.3 cm; Wt 91.6 kg
[~2019-08-15 09:47] MED LIST changes: +FLOMAX0.4 MG PO; +ZOFRAN4 MG PO
[2019-08-15] MEDS ORDERED: ASPIRIN 325 MG TAB PO ONE (10:15)
[2019-08-15] MEDS ORDERED: SODIUM CHLORIDE 0.9% 50ML 50 ML ONE (11:14)
[2019-08-15] MEDS ORDERED: IOPAMIDOL 370 MG/ML 200 ML INFUS..BTL INJ ONE (11:15)
--- NOTE | 2019-08-15 11:23 | Diagnostic Imaging Report ---
EXAM: CT Chest WITH contrast (PE Protocol) INDICATION: ^chest pain ^[id number] ^[id number] COMPARISON: None TECHNIQUE: Chest was scanned utilizing a multidetector helical scanner from the lung apex through the level of the diaphragm after administration of IV contrast. Thin section reconstructions were obtained with special concentration on the pulmonary arteries. Coronal and sagittal reformations were obtained. Pulmonary embolism protocol was performed. IV CONTRAST: 100 mL of Omnipaque 350 COMPLICATIONS: None RADIATION DOSE: Total DLP: 1346 mGy*cm Estimated effective dose: (DLP x 0.014 x size factor) mSv CTDIvol has been reviewed. It is below the limits set by the Radiation Protocol Committee (RPC). Dose modulation, iterative reconstruction, and/or weight based adjustment of the mA/kV was utilized to reduce the radiation dose to as low as reasonably achievable. FINDINGS: LINES/ TUBES: None. LUNGS AND AIRWAYS: No filling defect is identified within the pulmonary arteries to the segmental level. The lungs are unremarkable. Airways are normal. PLEURA: The pleural spaces are clear. HEART AND MEDIASTINUM: Enlarged heterogeneous thyroid gland with small nonspecific nodules. No mediastinal, hilar or axillary lymphadenopathy. The heart is normal in size. There is no pericardial effusion. . Main pulmonary artery measures 2.1 cm in diameter and the ascending aorta measures 3.1 cm. UPPER ABDOMEN: Gastroesophageal surgical changes with gastric lap band. Small hiatal hernia with mild nonspecific wall thickening of the distal thoracic esophagus. BONES: No acute osseous abnormality. Mild thoracic degenerative change. SOFT TISSUES: Unremarkable. IMPRESSION: 1. No acute thoracic abnormality. No pulmonary embolus. 2. Enlarged multinodular appearance of the thyroid gland. A more sensitive imaging evaluation may be obtained with thyroid sonography. Signed by: Hung Lees MD on 08/15/2019 11:21 AM
--- NOTE | 2019-08-15 11:28 | NUR ---
PT RESTING, VITAL SIGNS STABLE, PT TO BE TRANSFERED, PT AND FAMILY AWARE OF POC. PT VOICES NO COMPLAINTS AT THIS TIME
[2019-08-15 12:17] VITALS: BP 149/90
== END 2019-08-15 12:23 | disposition other institution (70) ==
LOC: FSED 09:47
DX: R07.89 Other chest pain (principal)
CPT/HCPCS: 71260; 80053; 82553; 84484; 85025; 93005; 99284; Q9967

== ENCOUNTER 2020-08-09 22:26 | Emergency (ER) | payer OTHER ==
[~2020-08-09] VITALS: Ht 175.3 cm; Wt 91.6 kg
[2020-08-10] MEDS ORDERED: DECADRON6 MG PO (00:14)
== END 2020-08-09 23:55 | disposition home or self-care (01) ==
LOC: FSED 22:55
DX: U07.1 COVID-19 (principal); E11.65 Type 2 diabetes mellitus with hyperglycemia; J98.01 Acute bronchospasm; I10 Essential (primary) hypertension; G40.909 Epilepsy, unspecified, not intractable, without status epilepticus; E78.5 Hyperlipidemia, unspecified
CPT/HCPCS: 36415; 71046; 82948; 99283